=== PATIENT | female | born 1990 | race Caucasian/White ===

== ENCOUNTER → 2023-09-06 | Emergency (ER) | payer BC ==
[~2023-09-06] MED LIST: BUPIVACAINE 0.5% PF 10 ML VIAL ONE; LIDOCAINE 1% MPF 5 ML VIAL ONE; MUPIROCIN 2% OINT 22GM TUBE TOP ONE; SMZ./TMP. 800/160 MG TABLET ONE
--- NOTE | 2023-09-06 08:42 | ER ---
Nurse's Notes [facility] Name: Gricel Tillman Age: 33 yrs Sex: Female : 1990 Arrival Date: 09/06/2023 Time: 07:52 Bed 14 Private MD: Diagnosis: Cutaneous abscess of hand-PARONYCHIA Presentation: 09/06 08:01 Chief complaint: Patient states: R hand 4th digit pain, swelling for 2 days. On keflex, ll1 just wants it lanced. Coronavirus screen: Client denies travel out of the [place] in the last 14 days. At this time, the client does not indicate any symptoms associated with coronavirus-19. Ebola Screen: Patient denies travel to an Ebola-affected area in the 21 days before illness onset. Initial Sepsis Screen: Does the patient meet any 2 criteria? No. Patient's initial sepsis screen is negative. Does the patient have a suspected source of infection? Yes: Skin breakdown/wound. Risk Assessment: Do you want to hurt yourself or someone else? Patient reports no desire to harm self or others. Onset of symptoms was September 05, 2023. 08:01 Method Of Arrival: Ambulatory ll1 08:01 Acuity: ROYA 4 ll1 Triage Assessment: 08:01 General: Appears uncomfortable, Behavior is calm, cooperative, appropriate for age. ll1 Pain: Complains of pain in R hand 4th digit Quality of pain is described as aching, throbbing. Pain: Pain currently is 6 out of 10 on a pain scale. Derm: Abscess located on R hand 4th digit. Musculoskeletal: Circulation, motion, and sensation intact. Capillary refill < 3 seconds, Swelling present in R hand 4th digit nailbed. Historical: - Allergies: 07:55 PERTUSSIS VACCINES; ll1 - PMHx: 08:02 None; ll1 - Immunization history:: Adult Immunizations up to date. - Social history:: Smoking status: Patient denies any tobacco usage or history of. - Family history:: not pertinent. Screenin:49 [facility] ED Fall Risk Assessment (Adult) Score/Fall Risk Level 0 - 2 = Low Risk ll1 Oriented to surroundings, Maintained a safe environment, Educated pt \T\ family on fall prevention, incl call for assistance when getting out of bed, Hourly rounding (assess needs \T\ fall precautionary measures) done. Abuse screen: Denies threats or abuse. Nutritional screening: No deficits noted. Tuberculosis screening: No symptoms or risk factors identified. Assessment: 08:48 Reassessment: No changes from previously documented assessment. Patient and/or family ll1 updated on plan of care and expected duration. Pain level reassessed. Patient is alert, oriented x 3, equal unlabored respirations, skin warm/dry/pink. Vital Signs: 08:01 Pain 8/10; ll1 08:06 BP 125 / 94; Pulse 82; Resp 18; Temp 97.9; Pulse Ox 99% ; ds4 08:01 Pain Scale: Adult ll1 ED Course: 07:53 Patient arrived in ED. rg4 07:55 Ryan Farmer MD is Attending Physician. kosta 07:55 Arm band placed on Patient placed in an exam room, on a stretcher. ll1 08:02 Triage completed. ll1 08:04 Elizabeth Patrick RN is Primary Nurse. ll1 08:40 Jabier Holt MD is Referral Physician. kosta 08:48 Patient did not have IV access during this emergency room visit. Wound care: to s/p I\T\D ll1 located on R hand 4th digit was dressed with Neosporin, 4X4s, secured with tape. 08:49 Patient has correct armband on for positive identification. Bed in low position. ll1 Provided Education on: n/a. 08:49 No provider procedures requiring assistance completed. 1 Administered Medications: 08:09 Drug: Trimethoprim-Sulfamethoxazole PO (160 mg-800 mg (DS) 1 tablet PO once Route: PO; 1 08:46 Follow up: Response: No adverse reaction 1 08:25 Drug: Bupivacaine Infiltration (0.5 %) 3 ml 10 ml Infiltration once Volume: 10 ml; ll1 Route: Infiltration; 08:51 Follow up: Response: No adverse reaction 1 08:25 Drug: Lidocaine Infiltration (1 %) 3 ml 5 ml Infiltration once; to bedside Volume: 5 ll1 ml; Route: Infiltration; 08:50 Follow up: Response: No adverse reaction 1 08:45 Drug: Mupirocin Topical Ointment 2 % 1 application Topical once Route: Topical; Site: ll1 affected area; Medication: 08:50 VIS not applicable for this client. 1 Outcome: 08:41 Discharge ordered by MD. brambila 09:30 Discharged to home ambulatory, [email or web address] 09:30 Condition: stable 09:30 Discharge instructions given to patient, Instructed on discharge instructions, follow up and referral plans. Demonstrated understanding of instructions, follow-up care, medications, Prescriptions given X 3, :30 Patient left the ED. mb9 Signatures: Ryan Farmer MD MD cha Swanson, Donovan ds4 Erin Escobedo4 Elizabeth Patrick RN RN ll1 Annie Li RN RN mb9
--- NOTE | 2023-09-06 08:42 | EDPHYS ---
Physician Documentation [facility] Name: Gricel Tillman Age: 33 yrs Sex: Female : 1990 Arrival Date: 09/06/2023 Time: 07:52 Bed 14 Private MD: ED Physician Ryan Farmer HPI: 09/06 08:33 This 33 yrs old Female presents to ER via Ambulatory with complaints of kosta Finger Infection. 08:33 The patient or guardian reports decreased range of motion, pain. The complaints affect kosta the right side which is dominant. Context: resulted from BITE. Onset: The symptoms/episode began/occurred 3 day(s) ago. Modifying factors: The symptoms are alleviated by nothing, the symptoms are aggravated by movement, dependent position. Associated signs and symptoms: The patient has no apparent associated signs or symptoms. Severity of symptoms: At their worst the symptoms were moderate, severe, in the emergency department the symptoms are unchanged. The patient has not experienced similar symptoms in the past. Historical: - Allergies: 07:55 PERTUSSIS VACCINES; ll1 - PMHx: 08:02 None; ll1 - Immunization history:: Adult Immunizations up to date. - Social history:: Smoking status: Patient denies any tobacco usage or history of. - Family history:: not pertinent. ROS: 08:33 Constitutional: Negative for fever, chills, and weight loss, Eyes: Negative for injury, kosta pain, redness, and discharge, ENT: Negative for injury, pain, and discharge, Neck: Negative for injury, pain, and swelling, Cardiovascular: Negative for chest pain, palpitations, and edema, Respiratory: Negative for shortness of breath, cough, wheezing, and pleuritic chest pain, Abdomen/GI: Negative for abdominal pain, nausea, vomiting, diarrhea, and constipation, Back: Negative for injury and pain, : Negative for injury, bleeding, discharge, and swelling, Skin: Negative for injury, rash, and discoloration, Neuro: Negative for headache, weakness, numbness, tingling, and seizure, Psych: Negative for depression, anxiety, suicide ideation, homicidal ideation, and hallucinations, Allergy/Immunology: Negative for hives, rash, and allergies, Endocrine: Negative for neck swelling, polydipsia, polyuria, polyphagia, and marked weight changes, Hematologic/Lymphatic: Negative for swollen nodes, abnormal bleeding, and unusual bruising, 08:33 MS/extremity: Positive for decreased range of motion, pain, swelling, tenderness, of the palmar aspect of distal phalanx of right middle finger and right middle fingernail, Exam: 08:33 Constitutional: This is a well developed, well nourished patient who is awake, alert, kosta and in no acute distress. Head/Face: Normocephalic, atraumatic. Eyes: Pupils equal round and reactive to light, extra-ocular motions intact. Lids and lashes normal. Conjunctiva and sclera are non-icteric and not injected. Cornea within normal limits. Periorbital areas with no swelling, redness, or edema. ENT: Nares patent. No nasal discharge, no septal abnormalities noted. Tympanic membranes are normal and external auditory canals are clear. Oropharynx with no redness, swelling, or masses, exudates, or evidence of obstruction, uvula midline. Mucous membranes moist. Neck: Trachea midline, no thyromegaly or masses palpated, and no cervical lymphadenopathy. Supple, full range of motion without nuchal rigidity, or vertebral point tenderness. No Meningismus. Chest/axilla: Normal chest wall appearance and motion. Nontender with no deformity. No lesions are appreciated. Cardiovascular: Regular rate and rhythm with a normal S1 and S2. No gallops, murmurs, or rubs. Normal PMI, no JVD. No pulse deficits. Respiratory: Lungs have equal breath sounds bilaterally, clear to auscultation and percussion. No rales, rhonchi or wheezes noted. No increased work of breathing, no retractions or nasal flaring. Abdomen/GI: Soft, non-tender, with normal bowel sounds. No distension or tympany. No guarding or rebound. No evidence of tenderness throughout. Back: No spinal tenderness. No costovertebral tenderness. Full range of motion. Female : Normal external genitalia. Skin: Warm, dry with normal turgor. Normal color with no rashes, no lesions, and no evidence of cellulitis. Neuro: Awake and alert, GCS 15, oriented to person, place, time, and situation. Cranial nerves II-XII grossly intact. Motor strength 5/5 in all extremities. Sensory grossly intact. Cerebellar exam normal. Normal gait. Psych: Awake, alert, with orientation to person, place and time. Behavior, mood, and affect are within normal limits. 08:33 Musculoskeletal/extremity: ROM: intact in all extremities, full active range of motion, full passive range of motion, Circulation is intact in all extremities. Sensation intact. Compartment Syndrome exam of affected extremity: is normal. Weight bearing: able to fully bear weight, without difficulty, Vital Signs: 08:01 Pain 8/10; ll1 08:06 BP 125 / 94; Pulse 82; Resp 18; Temp 97.9; Pulse Ox 99% ; ds4 08:01 Pain Scale: Adult ll1 Procedures: 08:33 I \T\ D: Incision and drainage was performed for an abscess of the right Prepped with [facility] Betadine, Anesthetized with 3 ml's 1% Lidocaine. Incised with #11 blade. Splinting: Splint applied to palmar aspect of distal phalanx of right middle finger and right middle fingernail. MDM: 07:55 Patient medically screened. [facility] 08:33 Differential diagnosis: contusion, tendonitis. Data reviewed: vital signs, nurses [facility] notes. Consideration of Admission/Observation Escalation of care including admission/observation considered. I considered the following discharge prescriptions or medication management in the emergency department Medications were administered in the Emergency Department. See MAR. Test considered but Not performed: Labs: NO LABS. Historians other than the Patient: PATIENT WELL INFORMED. Care significantly affected by the following chronic conditions: NONE. 09/06 08:01 Order name: Dressing - Wound; Complete Time: 08:06 [facility] 09/06 08:01 Order name: Gloves, Sterile; Complete Time: 08:06 [facility] 09/06 08:01 Order name: Setup Suture Tray; Complete Time: 08:05 [facility] Administered Medications: 08:09 Drug: Trimethoprim-Sulfamethoxazole PO (160 mg-800 mg (DS) 1 tablet PO once Route: PO; ll1 08:46 Follow up: Response: No adverse reaction ll1 08:25 Drug: Bupivacaine Infiltration (0.5 %) 3 ml 10 ml Infiltration once Volume: 10 ml; ll1 Route: Infiltration; 08:51 Follow up: Response: No adverse reaction 1 08:25 Drug: Lidocaine Infiltration (1 %) 3 ml 5 ml Infiltration once; to bedside Volume: 5 ll1 ml; Route: Infiltration; 08:50 Follow up: Response: No adverse reaction 1 08:45 Drug: Mupirocin Topical Ointment 2 % 1 application Topical once Route: Topical; Site: ll1 affected area; Disposition Summary: 09/06/23 08:41 Discharge Ordered Notes: Location: Home [facility] Problem: new kosta Symptoms: have improved kosta Condition: Stable kosta Diagnosis - Cutaneous abscess of hand - PARONYCHIA kosta Followup: kosta - With: Private Physician - When: 2 - 3 days - Reason: Recheck today's complaints, Continuance of care, Re-evaluation by your physician Followup: kosta - With: Jabier Holt MD - When: 2 - 3 days - Reason: Recheck today's complaints, Re-evaluation by your physician Discharge Instructions: - Discharge Summary Sheet kosta - Paronychia kosta - Paronychia, [id number] [facility] Forms: - Medication Reconciliation Form kosta - Thank You Letter kosta - Antibiotic Education kosta - Prescription Opioid Use kosta - Patient Portal Instructions kosta - Leadership Thank You Letter kosta - Work release form mb9 Prescriptions: - Centany 2 % Topical ointment - apply 1 application TOPICAL route 3 times per day; 15 gram; Refills: 0, Product [facility] Selection Permitted - acetaminophen-codeine 300-30 mg Oral tablet - take 2 tablet ORAL route every 6 hours as needed for pain; 20 tablet; Refills: kosta 0, Product Selection Permitted - Bactrim DS 800-160 mg Oral Tablet - take 1 tablet ORAL route every 12 hours for 10 days; 20 tablet; Refills: 0, kosta Product Selection Permitted Signatures: Ryan Farmer MD MD cha Lewis, Lynsay RN RN ll1
[2023-09-06 10:37] VITALS: BP 125/94; TEMP 97.9; O2SAT 99
== END ==
LOC: ER 07:52
PROC: 0H9FXZZ Drainage of Right Hand Skin, External Approach (ICD-10-PCS; principal; 2023-09-06)
DX: L03.011 Cellulitis of right finger (principal); Z88.7 Allergy status to serum and vaccine
CPT/HCPCS: 10060; J2001

== ENCOUNTER → 2023-10-01 | Emergency (ER) | payer BC ==
[~2023-10-01] MED LIST changes: -BUPIVACAINE 0.5% PF 10 ML VIAL ONE; +FAMOTIDINE 20 MG/2 ML VIAL IV ONE; +KETOROLAC 30 MG/ML INJ ONE; -LIDOCAINE 1% MPF 5 ML VIAL ONE; +MORPHINE 4 MG/ML SYR ONE; -MUPIROCIN 2% OINT 22GM TUBE TOP ONE; +NA CHLORIDE 0.9% 1,000 ML ONE; +ONDANSETRON 4 MG/2 ML VIAL ONE; -SMZ./TMP. 800/160 MG TABLET ONE
--- OUTSIDE RECORDS SUMMARY | 2023-10-01 23:25 | XMS REPORT | Continuity of Care Document ---
Author Name Unknown Address [address] [place] [address] [facility] thconnect Address [address] [place] [address] Care Team Providers Care Schedule Clerk Name Role Phone DEBBI CERVANTES Primary Care Physician UnavailJacki Ye PA-C Attending Clinician [phone] Unknown, Attending Attending Clinician UnavailJACKI Ye Attending Clinician Unavailable UNKNOWN, ATTENDING Attending Clinician Unavailab octavia Doctor Unassigned, [place] Attending Clinician U navailable Debbi Cha Attending Clinician + [phone] Ramon Mckeon MD Attending Clinician [phone] Estefani Laureano Attending Clinician [phone] LUCY MCCLOUD Attending Clinician UnavailDEBBI Castano Attending Clinician Unavailable Lab, [facility] I Attending Clinician Ewa Conner MD, Jason Keating Attending Clinician [phone] Lana Walls Attending Clinician [phone] JASON ZHAO Attending Clinician Mike ble Pob, [facility] Lab Main Attending Clinician Unavailabl e Payers Payer Name Policy Type Policy Number Effective Date Expirati on Date Source Problems Condition Name Condition Details Condition Category Status Onset Date Resolution Date Last Treatment Date Treating Clinician Comments Source Elevated LFTs Elevated LFTs Disease Active 01-24 00:00: 00 [facility] Positive JIM (antinucle ar antibody) Positive JIM (antinucle ar antibody) Disease Active 01-24 00:00: 00 [facility] Elevated LFTs Elevated LFTs Disease Active 01-24 00:00: 00 [facility] Anxiety Anxiety Disease Active 01-22 00:00: 00 [facility] Hypothyroi dism due to Nish' s thyroiditi s Hypothyroi dism due to Nish' s thyroiditi s Disease Active 01-22 00:00: 00 [facility] Allergies, Adverse Reactions, Alerts Allergy Name Allergy Type Status Severity Reaction(s) Onset Date Inactive Date Treating Clinician Comments Source No Known Allergie s Propensi ty to adverse reaction s Active 08-10 00:00: 00 [facility] NO KNOWN ALLERGIE S Drug Class Active 08-10 00:00: 00 [facility] Social History Social Habit Start Date Stop Date Quantity Comments Source History of tobacco use Current smoker [facility] Tobacco use and exposure 2023-07-18 00:00:00 2023-07-18 00:00:00 Smokeless tobacco non-user [facility] Alcohol intake 2023-07-18 00:00:00 2023-07-18 00:00:00 0 /d [facility] Exposure to SARS-CoV-2 (event) 2020-09-18 00:00:00 2020-10-18 08:11:00 Not sure [facility] History of Social function 2020-06-17 00:00:00 2020-06-17 00:00:00 [facility] Sex Assigned At 1990 00:00:00 1990 00:00:00 [facility] Smoking Status Start Date Stop Date Source Ex-smoker 2023-07-18 00:00:00 2023-07-18 00:00:00 [facility] Medications Ordered Medication Name Filled Medication Name Start Date Stop Date Current Medication? Ordering Clinician Indication Dosage Frequency Signature (SIG) Comments Components Source ibuprofen 800 mg tablet 09-05 00:00: 00 Yes [id number] 800mg Take 1 tablet by mouth in the morning and 1 tablet at noon and 1 tablet in the evening. Take with meals. [facility] cephALEXin (KEFLEX) 500 mg capsule 09-05 00:00: 00 09-13 05:59 :00 Yes [id number] 500mg Take 1 capsule by mouth 4 (four) times daily for 7 days. [facility] fluconazole (DIFLUCAN) 150 mg tablet 09-05 00:00: 00 09-06 05:59 :00 Yes [id number] 150mg Take 1 tablet by mouth once now for 1 dose. [facility] bromphenira mine-pseudo ephedrine-D M (BROMFED DM) 2-30-10 mg/5 mL syrup 2022-08 00:00: 00 Yes [id number] 5mL Take 5 mL by mouth 3 (three) times daily as needed for Cold symptoms or Cough. [facility] fluticasone propionate 50 mcg/actuati on nasal spray 2022-08 00:00: 00 Yes [id number] 2{spray } Use 2 Sprays in each nostril in the morning. [facility] cetirizine 10 mg tablet 2022-08 00:00: 00 Yes [id number] 10mg Take 1 tablet by mouth in the morning. [facility] bromphenira mine-pseudo ephedrine-D M (BROMFED DM) 2-30-10 mg/5 mL syrup 2022-08 00:00: 00 Yes [id number] 5mL Take 5 mL by mouth 3 (three) times daily as needed for Cold symptoms or Cough. [facility] fluticasone propionate 50 mcg/actuati on nasal spray 2022-08 00:00: 00 Yes [id number] 2{spray } Use 2 Sprays in each nostril in the morning. [facility] cetirizine 10 mg tablet 2022-08 00:00: 00 Yes [id number] 10mg Take 1 tablet by mouth in the morning. [facility] bromphenira mine-pseudo ephedrine-D M (BROMFED DM) 2-30-10 mg/5 mL syrup 2022-08 00:00: 00 Yes [id number] 5mL Take 5 mL by mouth 3 (three) times daily as needed for Cold symptoms or Cough. [facility] fluticasone propionate 50 mcg/actuati on nasal spray 2022-08 00:00: 00 Yes [id number] 2{spray } Use 2 Sprays in each nostril in the morning. [facility] cetirizine 10 mg tablet 2022-08 00:00: 00 Yes [id number] 10mg Take 1 tablet by mouth in the morning. [facility] bromphenira mine-pseudo ephedrine-D M (BROMFED DM) 2-30-10 mg/5 mL syrup 2022-08 00:00: 00 Yes [id number] 5mL Take 5 mL by mouth 3 (three) times daily as needed for Cold symptoms or Cough. [facility] fluticasone propionate 50 mcg/actuati on nasal spray 2022-08 00:00: 00 Yes [id number] 2{spray } Use 2 Sprays in each nostril in the morning. [facility] cetirizine 10 mg tablet 2022-08 00:00: 00 Yes [id number] 10mg Take 1 tablet by mouth in the morning. [facility] SERTraline 100 mg tablet 2020-08 00:00: 00 Yes [id number] 100mg Take 1 tablet by mouth daily. MUST BE SEEN FOR FURTHER REFILLS [facility] SERTraline 100 mg tablet 2020-08 00:00: 00 Yes [id number] 100mg Take 1 tablet by mouth daily. MUST BE SEEN FOR FURTHER REFILLS [facility] SERTraline 100 mg tablet 2020-08 00:00: 00 Yes [id number] 100mg Take 1 tablet by mouth daily. MUST BE SEEN FOR FURTHER REFILLS [facility] SERTraline 100 mg tablet 2020-08 00:00: 00 Yes [id number] 100mg Take 1 tablet by mouth daily. MUST BE SEEN FOR FURTHER REFILLS [facility] SERTraline 100 mg tablet 2020-08 00:00: 00 Yes [id number] 100mg Take 1 tablet by mouth daily. MUST BE SEEN FOR FURTHER REFILLS [facility] SERTraline 100 mg tablet 2020-08 00:00: 00 Yes [id number] 100mg Take 1 tablet by mouth daily. MUST BE SEEN FOR FURTHER REFILLS [facility] SERTraline 100 mg tablet 2020-08 00:00: 00 Yes [id number] 100mg Take 1 tablet by mouth daily. MUST BE SEEN FOR FURTHER REFILLS [facility] SERTraline 100 mg tablet 2020-08 00:00: 00 Yes [id number] 100mg Take 1 tablet by mouth daily. MUST BE SEEN FOR FURTHER REFILLS [facility] SERTraline 100 mg tablet 2020-08 00:00: 00 Yes [id number] 100mg Take 1 tablet by mouth daily. MUST BE SEEN FOR FURTHER REFILLS [facility] SERTRALINE 100 mg tablet 04-21 00:00: 00 Yes [id number] 100mg TAKE 1 TABLET BY MOUTH DAILY. MUST BE SEEN FOR FURTHER REFILLS [facility] SERTRALINE 100 mg tablet 04-21 00:00: 00 Yes [id number] 100mg TAKE 1 TABLET BY MOUTH DAILY. MUST BE SEEN FOR FURTHER REFILLS [facility] SERTRALINE 100 mg tablet 04-21 00:00: 00 05-27 00:00 :00 No [id number] 100mg TAKE 1 TABLET BY MOUTH DAILY. MUST BE SEEN FOR FURTHER REFILLS [facility] levothyroxi ne 75 mcg tablet 03-28 00:00: 00 04-28 04:59 :00 No [id number] 75ug Take 1 tablet by mouth every morning for 30 days. [facility] levothyroxi ne 75 mcg tablet 03-28 00:00: 00 04-28 04:59 :00 No [id number] 75ug Take 1 tablet by mouth every morning for 30 days. [facility] SERTRALINE 100 mg tablet 03-04 00:00: 00 Yes [id number] 100mg TAKE 1 TABLET BY MOUTH DAILY. MUST BE SEEN FOR FURTHER REFILLS [facility] SERTRALINE 100 mg tablet 03-04 00:00: 00 Yes [id number] 100mg TAKE 1 TABLET BY MOUTH DAILY. MUST BE SEEN FOR FURTHER REFILLS [facility] SERTRALINE 100 mg tablet 03-04 00:00: 00 Yes [id number] 100mg TAKE 1 TABLET BY MOUTH DAILY. MUST BE SEEN FOR FURTHER REFILLS [facility] SERTRALINE 100 mg tablet 03-04 00:00: 00 Yes [id number] 100mg TAKE 1 TABLET BY MOUTH DAILY. MUST BE SEEN FOR FURTHER REFILLS [facility] SERTRALINE 100 mg tablet 03-04 00:00: 00 04-21 00:00 :00 No [id number] 100mg TAKE 1 TABLET BY MOUTH DAILY. MUST BE SEEN FOR FURTHER REFILLS [facility] SERTRALINE 100 mg tablet 03-04 00:00: 00 04-21 00:00 :00 No [id number] 100mg TAKE 1 TABLET BY MOUTH DAILY. MUST BE SEEN FOR FURTHER REFILLS [facility] SERTraline 100 mg tablet 12-29 00:00: 00 Yes [id number] 100mg Take 1 tablet by mouth daily. MUST BE SEEN FOR FURTHER REFILLS [facility] SERTraline 100 mg tablet 12-29 00:00: 00 03-04 00:00 :00 No [id number] 100mg Take 1 tablet by mouth daily. MUST BE SEEN FOR FURTHER REFILLS [facility] levothyroxi ne 75 mcg tablet 11-25 00:00: 00 Yes [id number] 75ug Take 1 tablet by mouth every morning. [facility] levothyroxi ne 75 mcg tablet 11-25 00:00: 00 Yes [id number] 75ug Take 1 tablet by mouth every morning. [facility] levothyroxi ne 75 mcg tablet 11-25 00:00: 00 Yes [id number] 75ug Take 1 tablet by mouth every morning. [facility] levothyroxi ne 75 mcg tablet 11-25 00:00: 00 Yes [id number] 75ug Take 1 tablet by mouth every morning. [facility] levothyroxi ne 75 mcg tablet 11-25 00:00: 00 Yes [id number] 75ug Take 1 tablet by mouth every morning. [facility] SERTRALINE 100 mg tablet 2 00:00: 00 Yes [id number] TAKE 1 TABLET BY MOUTH EVERY DAY [facility] SERTRALINE 100 mg tablet 2 00:00: 00 Yes [id number] TAKE 1 TABLET BY MOUTH EVERY DAY [facility] SERTRALINE 100 mg tablet 2 00:00: 00 Yes [id number] TAKE 1 TABLET BY MOUTH EVERY DAY [facility] SERTRALINE 100 mg tablet 2 00:00: 00 Yes [id number] TAKE 1 TABLET BY MOUTH EVERY DAY [facility] SERTRALINE 100 mg tablet 2 00:00: 00 Yes [id number] TAKE 1 TABLET BY MOUTH EVERY DAY [facility] SERTRALINE 100 mg tablet 2- 00:00: 00 Yes [id number] TAKE 1 TABLET BY MOUTH EVERY DAY [facility] SERTRALINE 100 mg tablet 2- 00:00: 00 Yes [id number] TAKE 1 TABLET BY MOUTH EVERY DAY [facility] SERTRALINE 100 mg tablet 2- 00:00: 00 Yes [id number] TAKE 1 TABLET BY MOUTH EVERY DAY [facility] SERTRALINE 100 mg tablet 2- 00:00: 00 Yes [id number] TAKE 1 TABLET BY MOUTH EVERY DAY [facility] SERTRALINE 100 mg tablet 09-06 00:00: 00 12-29 00:00 :00 No [id number] TAKE 1 TABLET BY MOUTH EVERY DAY [facility] levothyroxi ne 75 mcg tablet 08-25 00:00: 00 Yes [id number] 75ug Take 1 tablet by mouth every morning. [facility] levothyroxi ne 75 mcg tablet 08-25 00:00: 00 Yes [id number] 75ug Take 1 tablet by mouth every morning. [facility] levothyroxi ne 75 mcg tablet 08-25 00:00: 00 Yes [id number] 75ug Take 1 tablet by mouth every morning. [facility] levothyroxi ne 75 mcg tablet 08-25 00:00: 00 Yes [id number] 75ug Take 1 tablet by mouth every morning. [facility] levothyroxi ne 75 mcg tablet 08-25 00:00: 00 Yes [id number] 75ug Take 1 tablet by mouth every morning. [facility] levothyroxi ne 75 mcg tablet 08-25 00:00: 00 Yes [id number] 75ug Take 1 tablet by mouth every morning. [facility] levothyroxi ne 75 mcg tablet 08-25 00:00: 00 Yes [id number] 75ug Take 1 tablet by mouth every morning. [facility] levothyroxi ne 75 mcg tablet 08-25 00:00: 00 Yes [id number] 75ug Take 1 tablet by mouth every morning. [facility] levothyroxi ne 75 mcg tablet 08-25 00:00: 00 11-25 00:00 :00 No [id number] 75ug Take 1 tablet by mouth every morning. [facility] SERTraline 100 mg tablet 2019-08 00:00: 00 Yes [id number] 100mg Take 1 tablet by mouth daily. [facility] SERTraline 100 mg tablet 2019-08 00:00: 00 Yes [id number] 100mg Take 1 tablet by mouth daily. [facility] SERTraline 100 mg tablet 2019-08 00:00: 00 Yes [id number] 100mg Take 1 tablet by mouth daily. [facility] SERTraline 100 mg tablet 2019-08 00:00: 00 Yes [id number] 100mg Take 1 tablet by mouth daily. [facility] SERTraline 100 mg tablet 2019-08 00:00: 00 09-06 00:00 :00 No [id number] 100mg Take 1 tablet by mouth daily. [facility] SERTraline 100 mg tablet 2019-08 00:00: 00 08-02 05:59 :00 No [id number] 100mg Take 1 tablet by mouth daily for 45 days. [facility] SERTraline 100 mg tablet 2019-08 00:00: 00 08-02 05:59 :00 No [id number] 100mg Take 1 tablet by mouth daily for 45 days. [facility] SERTraline 100 mg tablet 2019-08 00:00: 00 08-02 05:59 :00 No [id number] 100mg Take 1 tablet by mouth daily for 45 days. [facility] SERTraline 100 mg tablet 2019-08 00:00: 00 08-02 05:59 :00 No [id number] 100mg Take 1 tablet by mouth daily for 45 days. [facility] SERTraline 100 mg tablet 2019-08 00:00: 00 08-02 05:59 :00 No [id number] 100mg Take 1 tablet by mouth daily for 45 days. [facility] SERTraline 100 mg tablet 2019-08 00:00: 00 07-23 00:00 :00 No [id number] 100mg Take 1 tablet by mouth daily for 45 days. [facility] LEVOTHYROXI NE 75 mcg tablet 2019-08 00:00: 00 Yes [id number] TAKE 1 TABLET BY MOUTH EVERY DAY IN THE MORNING [facility] LEVOTHYROXI NE 75 mcg tablet 2019-08 00:00: 00 Yes [id number] TAKE 1 TABLET BY MOUTH EVERY DAY IN THE MORNING [facility] LEVOTHYROXI NE 75 mcg tablet 2019-08 00:00: 00 Yes [id number] TAKE 1 TABLET BY MOUTH EVERY DAY IN THE MORNING [facility] LEVOTHYROXI NE 75 mcg tablet 2019-08 00:00: 00 Yes [id number] TAKE 1 TABLET BY MOUTH EVERY DAY IN THE MORNING [facility] LEVOTHYROXI NE 75 mcg tablet 2019-08 00:00: 00 Yes [id number] TAKE 1 TABLET BY MOUTH EVERY DAY IN THE MORNING [facility] LEVOTHYROXI NE 75 mcg tablet 2019-08 00:00: 00 Yes [id number] TAKE 1 TABLET BY MOUTH EVERY DAY IN THE MORNING [facility] LEVOTHYROXI NE 75 mcg tablet 2019-08 00:00: 00 Yes [id number] TAKE 1 TABLET BY MOUTH EVERY DAY IN THE MORNING [facility] LEVOTHYROXI NE 75 mcg tablet 2019-08 00:00: 00 Yes [id number] TAKE 1 TABLET BY MOUTH EVERY DAY IN THE MORNING [facility] LEVOTHYROXI NE 75 mcg tablet 2019-08 00:00: 00 Yes [id number] TAKE 1 TABLET BY MOUTH EVERY DAY IN THE MORNING [facility] LEVOTHYROXI NE 75 mcg tablet 2019-08 00:00: 00 08-24 00:00 :00 No [id number] TAKE 1 TABLET BY MOUTH EVERY DAY IN THE MORNING [facility] LEVOTHYROXI NE 75 mcg tablet 02-18 00:00: 00 Yes [id number] TAKE 1 TABLET BY MOUTH EVERY DAY IN THE MORNING [facility] LEVOTHYROXI NE 75 mcg tablet 02-18 00:00: 00 06-09 00:00 :00 No [id number] TAKE 1 TABLET BY MOUTH EVERY DAY IN THE MORNING [facility] polymyxin B sulf-trimet hoprim (POLYTRIM) 10,000 unit- 1 mg/mL ophthalmic drops 02-06 00:00: 02-12 04:59 :00 No [id number] 9102 1[drp] Place 1 Drop in left eye every 4 (four) hours for 5 days. [facility] levothyroxi ne 75 mcg tablet 11-24 00:00: 00 Yes [id number] 75ug Take 1 tablet by mouth every morning. [facility] SERTraline 50 mg tablet 11-24 00:00: 00 Yes [id number] TAKE 1 TAB PO DAILY [facility] levothyroxi ne 75 mcg tablet 11-24 00:00: 00 Yes [id number] 75ug Take 1 tablet by mouth every morning. [facility] SERTraline 50 mg tablet 11-24 00:00: 00 Yes [id number] TAKE 1 TAB PO DAILY [facility] SERTraline 50 mg tablet 11-24 00:00: 00 Yes [id number] TAKE 1 TAB PO DAILY [facility] SERTraline 50 mg tablet 11-24 00:00: 00 Yes [id number] TAKE 1 TAB PO DAILY [facility] SERTraline 50 mg tablet 11-24 00:00: 00 06-17 00:00 :00 No [id number] TAKE 1 TAB PO DAILY [facility] SERTraline 50 mg tablet 11-24 00:00: 00 06-17 00:00 :00 No [id number] TAKE 1 TAB PO DAILY [facility] levothyroxi ne 75 mcg tablet 11-24 00:00: 00 02-18 00:00 :00 No [id number] 75ug Take 1 tablet by mouth every morning. [facility] SERTraline 50 mg tablet 10-28 00:00: 00 Yes [id number] TAKE 1 TAB PO DAILY [facility] SERTraline 50 mg tablet 10-28 00:00: 00 Yes [id number] TAKE 1 TAB PO DAILY [facility] SERTraline 50 mg tablet 10-28 00:00: 00 11-24 00:00 :00 No [id number] TAKE 1 TAB PO DAILY [facility] levothyroxi ne 50 mcg tablet 0 2-13 00:00: 00 Yes [id number] 50ug Take 1 tablet by mouth every morning. [facility] levothyroxi ne 50 mcg tablet 0 2-13 00:00: 00 Yes [id number] 50ug Take 1 tablet by mouth every morning. [facility] levothyroxi ne 50 mcg tablet 0 2-13 00:00: 00 Yes [id number] 50ug Take 1 tablet by mouth every morning. [facility] levothyroxi ne 50 mcg tablet 0 2-13 00:00: 00 11-24 00:00 :00 No [id number] 50ug Take 1 tablet by mouth every morning. [facility] amoxicillin -clavulanat e (AUGMENTIN) 875-125 mg per tablet 2- 00:00: 00 09-27 05:59 :00 No [id number] 1{tbl} Take 1 tablet by mouth 2 (two) times daily for 10 days. [facility] bromphenira mine-pseudo ephedrine-D M (BROMFED DM) 2-30-10 mg/5 mL syrup 2 00:00: 00 09-27 05:59 :00 No [id number] 5mL Take 5 mL by mouth 4 (four) times daily as needed for Cough for up to 10 days. [facility] amoxicillin -clavulanat e (AUGMENTIN) 875-125 mg per tablet 2- 00:00: 00 09-27 05:59 :00 No [id number] 1{tbl} Take 1 tablet by mouth 2 (two) times daily for 10 days. [facility] bromphenira mine-pseudo ephedrine-D M (BROMFED DM) 2-30-10 mg/5 mL syrup 2-11 00:00: 00 09-27 05:59 :00 No [id number] 5mL Take 5 mL by mouth 4 (four) times daily as needed for Cough for up to 10 days. [facility] amoxicillin -clavulanat e (AUGMENTIN) 875-125 mg per tablet 2-11 00:00: 09-27 05:59 :00 No [id number] 1{tbl} Take 1 tablet by mouth 2 (two) times daily for 10 days. [facility] bromphenira mine-pseudo ephedrine-D M (BROMFED DM) 2-30-10 mg/5 mL syrup 2019- 2-11 00:00: 09-27 05:59 :00 No [id number] 5mL Take 5 mL by mouth 4 (four) times daily as needed for Cough for up to 10 days. [facility] amoxicillin -clavulanat e (AUGMENTIN) 875-125 mg per tablet 2-11 00:00: 09-27 05:59 :00 No [id number] 1{tbl} Take 1 tablet by mouth 2 (two) times daily for 10 days. [facility] bromphenira mine-pseudo ephedrine-D M (BROMFED DM) 2-30-10 mg/5 mL syrup 2-11 00:00: 09-27 05:59 :00 No [id number] 5mL Take 5 mL by mouth 4 (four) times daily as needed for Cough for up to 10 days. [facility] amoxicillin -clavulanat e (AUGMENTIN) 875-125 mg per tablet 2-11 00:00: 09-27 05:59 :00 No [id number] 1{tbl} Take 1 tablet by mouth 2 (two) times daily for 10 days. [facility] bromphenira mine-pseudo ephedrine-D M (BROMFED DM) 2-30-10 mg/5 mL syrup 2-11 00:00: 09-27 05:59 :00 No [id number] 5mL Take 5 mL by mouth 4 (four) times daily as needed for Cough for up to 10 days. [facility] amoxicillin -clavulanat e (AUGMENTIN) 875-125 mg per tablet 2-11 00:00: 09-27 05:59 :00 No [id number] 1{tbl} Take 1 tablet by mouth 2 (two) times daily for 10 days. [facility] bromphenira mine-pseudo ephedrine-D M (BROMFED DM) 2-30-10 mg/5 mL syrup 09-16 00:00: 00 09-27 05:59 :00 No [id number] 5mL Take 5 mL by mouth 4 (four) times daily as needed for Cough for up to 10 days. [facility] levothyroxi ne 50 mcg tablet 2018-08 00:00: 00 Yes [id number] 50ug Take 1 tablet by mouth every morning. [facility] SERTraline 50 mg tablet 2018-08 00:00: 00 Yes [id number] Take 1/2 tab PO daily x 1 week, then increase to 1 tab PO daily [facility] mcg tablet 2018-08 00:00: 00 Yes [id number] 50ug Take 1 tablet by mouth every morning. [facility] SERTraline 50 mg tablet 2018-08 00:00: 00 Yes [id number] Take 1/2 tab PO daily x 1 week, then increase to 1 tab PO daily [facility] levothyroxi ne 50 mcg tablet 2018-08 00:00: 00 Yes [id number] 50ug Take 1 tablet by mouth every morning. [facility] SERTraline 50 mg tablet 2018-08 00:00: 00 Yes [id number] Take 1/2 tab PO daily x 1 week, then increase to 1 tab PO daily [facility] SERTraline 50 mg tablet 2018-08 00:00: 00 Yes [id number] Take 1/2 tab PO daily x 1 week, then increase to 1 tab PO daily [facility] SERTraline 50 mg tablet 2018-08 00:00: 00 Yes [id number] Take 1/2 tab PO daily x 1 week, then increase to 1 tab PO daily [facility] SERTraline 50 mg tablet 2018-08 00:00: 00 Yes [id number] Take 1/2 tab PO daily x 1 week, then increase to 1 tab PO daily [facility] SERTraline 50 mg tablet 2018-08 00:00: 00 10-28 00:00 :00 No [id number] Take 1/2 tab PO daily x 1 week, then increase to 1 tab PO daily [facility] levothyroxi ne 50 mcg tablet 2018-08 00:00: 00 09-18 00:00 :00 No [id number] 50ug Take 1 tablet by mouth every morning. [facility] Immunizations Ordered Immunization Name Filled Immunization Name Date Status Comments Source Influenza Virus Vaccine Quad .5 mL IM 6+ MO 2020-06-17 00:00:00 Completed [facility] Influenza Virus Vaccine Quad .5 mL IM 6+ MO 2020-06-17 00:00:00 Completed [facility] Influenza Virus Vaccine Quad .5 mL IM 6+ MO 2020-06-17 00:00:00 Completed [facility] Influenza Virus Vaccine Quad .5 mL IM 6+ MO 2020-06-17 00:00:00 Completed [facility] Influenza Virus Vaccine Quad .5 mL IM 6+ MO 2020-06-17 00:00:00 Completed [facility] Influenza Virus Vaccine Quad .5 mL IM 6+ MO 2020-06-17 00:00:00 Completed [facility] Influenza Virus Vaccine Quad .5 mL IM 6+ MO 2020-06-17 00:00:00 Completed [facility] Influenza Virus Vaccine Quad .5 mL IM 6+ MO 2020-06-17 00:00:00 Completed [facility] Influenza Virus Vaccine Quad .5 mL IM 6+ MO 2020-06-17 00:00:00 Completed [facility] Influenza Virus Vaccine Quad .5 mL IM 6+ MO 2020-06-17 00:00:00 Completed [facility] Influenza Virus Vaccine Quad .5 mL IM 6+ MO 2020-06-17 00:00:00 Completed [facility] Influenza Virus Vaccine Quad .5 mL IM 6+ MO 2020-06-17 00:00:00 Completed [facility] Influenza Virus Vaccine Quad .5 mL IM 6+ MO 2020-06-17 00:00:00 Completed [facility] Influenza Virus Vaccine Quad .5 mL IM 6+ MO 2020-06-17 00:00:00 Completed [facility] Influenza Virus Vaccine Quad .5 mL IM 6+ MO 2020-06-17 00:00:00 Completed [facility] Influenza Virus Vaccine Quad .5 mL IM 6+ MO 2020-06-17 00:00:00 Completed [facility] Influenza Virus Vaccine Quad .5 mL IM 6+ MO 2020-06-17 00:00:00 Completed [facility] Influenza Virus Vaccine Quad .5 mL IM 6+ MO 2020-06-17 00:00:00 Completed [facility] Influenza Virus Vaccine Quad .5 mL IM 6+ MO 2020-06-17 00:00:00 Completed [facility] Influenza Virus Vaccine Quad .5 mL IM 6+ MO 2020-06-17 00:00:00 Completed [facility] Influenza Virus Vaccine Quad .5 mL IM 6+ MO 2020-06-17 00:00:00 Completed [facility] Influenza Virus Vaccine Quad .5 mL IM 6+ MO 2020-06-17 00:00:00 Completed [facility] Influenza Virus Vaccine Quad .5 mL IM 6+ MO 2020-06-17 00:00:00 Completed [facility] Influenza Virus Vaccine Quad .5 mL IM 6+ MO 2020-06-17 00:00:00 Completed [facility] Influenza Virus Vaccine Quad .5 mL IM 6+ MO 2020-06-17 00:00:00 Completed [facility] Influenza Virus Vaccine Quad .5 mL IM 6+ MO 2020-06-17 00:00:00 Completed [facility] Influenza Virus Vaccine Quad .5 mL IM 6+ MO 2020-06-17 00:00:00 Completed [facility] Influenza Virus Vaccine Quad .5 mL IM 6+ MO 2020-06-17 00:00:00 Completed [facility] Influenza Virus Vaccine Quad .5 mL IM 6+ MO (FLUZONE/FLULAVAL/F LUARIX) Unknown Completed [facility] Influenza Virus Vaccine Quad .5 mL IM 6+ MO (FLUZONE/FLULAVAL/F LUARIX) Unknown Completed [facility] Influenza Virus Vaccine Quad .5 mL IM 6+ MO (FLUZONE/FLULAVAL/F LUARIX) Unknown Completed [facility] Influenza Virus Vaccine Quad .5 mL IM 6+ MO (FLUZONE/FLULAVAL/F LUARIX) Unknown Completed [facility] Influenza Virus Vaccine Quad .5 mL IM 6+ MO (FLUZONE/FLULAVAL/F LUARIX) Unknown Completed [facility] Influenza Virus Vaccine Quad .5 mL IM 6+ MO (FLUZONE/FLULAVAL/F LUARIX) Unknown Completed [facility] Vital Signs Vital Name Observation Time Observation Value Comments S jocelynce Systolic blood pressure 2023-09-06 02:07:00 137 mm[Hg] [facility] Diastolic blood pressure 2023-09-06 02:07:00 87 mm[Hg] [facility] Heart rate 2023-09-06 02:07:00 93 /min [facility] Body temperature 2023-09-06 02:07:00 36.72 Ally [facility] Respiratory rate 2023-09-06 02:07:00 14 /min [facility] Body weight 2023-09-06 02:07:00 105.325 kg [facility] BMI 2023-09-06 02:07:00 36.37 kg/m2 [facility] Oxygen saturation in Arterial blood by Pulse oximetry 2023-09-06 02:07:00 98 /min [facility] Systolic blood pressure 2023-07-18 17:26:00 116 mm[Hg] [facility] Diastolic blood pressure 2023-07-18 17:26:00 79 mm[Hg] [facility] Heart rate 2023-07-18 17:26:00 101 /min [facility] Body temperature 2023-07-18 17:26:00 36.83 Ally [facility] Respiratory rate 2023-07-18 17:26:00 16 /min [facility] Body height 2023-07-18 17:26:00 170.2 cm [facility] Body weight 2023-07-18 17:26:00 103.738 kg [facility] BMI 2023-07-18 17:26:00 35.82 kg/m2 [facility] Oxygen saturation in Arterial blood by Pulse oximetry 2023-07-18 17:26:00 99 /min [facility] Systolic blood pressure 2020-09-30 22:08:00 120 mm[Hg] [facility] Diastolic blood pressure 2020-09-30 22:08:00 77 mm[Hg] [facility] Heart rate 2020-09-30 22:08:00 81 /min [facility] Body weight 2020-09-30 22:08:00 103.874 kg [facility] BMI 2020-09-30 22:08:00 35.87 kg/m2 [facility] Systolic blood pressure 2020-06-17 21:33:00 116 mm[Hg] [facility] Diastolic blood pressure 2020-06-17 21:33:00 81 mm[Hg] [facility] Heart rate 2020-06-17 21:33:00 88 /min [facility] Body weight 2020-06-17 21:33:00 99.791 kg [facility] BMI 2020-06-17 21:33:00 34.46 kg/m2 [facility] Systolic blood pressure 2019-09-16 22:42:00 112 mm[Hg] [facility] Diastolic blood pressure 2019-09-16 22:42:00 77 mm[Hg] [facility] Heart rate 2019-09-16 22:42:00 89 /min [facility] Body temperature 2019-09-16 22:42:00 36.94 Ally [facility] Body weight 2019-09-16 22:42:00 99.791 kg [facility] BMI 2019-09-16 22:42:00 34.46 kg/m2 [facility] Oxygen saturation in Arterial blood by Pulse oximetry 2019-09-16 22:42:00 98 /min [facility] Procedures Procedure Date / Time Performed Performing Clinician Source POCT MOLECULAR FLU 2023-07-18 17:39:00 Unknown, Attend ing [facility] POCT MOLECULAR STREP 2023-07-18 17:32:00 Unknown, Atte iglesia [facility] ASSIGNMENT OF BENEFITS 2023-07-18 16:54:53 Docto r Unassigned, [place] [facility] AUTHORIZATION FOR RELEASE OF PHI 2021-03-21 05:01:00 Doctor Unassigned, [place] [facility] INSURANCE CORRESPONDENCE 2020-11-24 05:01:00 Doc nancy Unassigned, [place] [facility] FLU VACC ([phone]), 6+ MONTHS, IMURIEL 2020-06-17 21:49:09 Debbi Cervantes [facility] FREE T4 2019-09-16 23:21:00 Debbi Cervantes [facility] THYROID STIMULATING HORMONE 2019-09-16 23:21:00 Debbi Cervantes [facility] Encounters Start Date/Time End Date/Time Encounter Type Admission Type Attending Clinicians Care Facility Care Department Encounter ID Source 2023-09-05 20:00:00 2023-09-05 20:20:00 Urgent Care Jacki Benjamin, Attending [facility] 1.2.840.114 350.1.13.10 4.2.7.2.686 [id number] [facility] 2023-09-05 20:00:00 2023-09-05 20:00:00 Outpatient R JACKI BENJAMIN [facility] [id number] [facility] 2023-09-01 09:00:00 2023-09-01 09:00:00 Outpatient R DAISY, ATTENDING [facility] [id number] [facility] 2023-08-10 00:00:00 2023-08-10 00:00:00 Refill Sourav Jacki [facility] MAMADOU?[facility] 1.2.840.114 350.1.13.10 4.2.7.2.686 [id number] [facility] 2023-08-09 00:00:00 2023-08-09 00:00:00 Refill Sourav [facility] MAMADOU?[facility] 1.2.840.114 350.1.13.10 4.2.7.2.686 [id number] [facility] 2023-07-18 11:00:00 2023-07-18 11:51:59 Outpatient R SOURAV JACKI [facility] [id number] [facility] 2023-07-18 11:00:00 2023-07-18 11:51:59 Urgent Care Sourav Jacki Unknown, Attending [facility] 1.2.840.114 350.1.13.10 4.2.7.2.686 [id number] [facility] 2023-07-18 00:00:00 2023-07-18 00:00:00 Orders Only Doctor Unassigned, [place] [facility] 1.2.840.114 350.1.13.10 4.2.7.2.686 [id number] [facility] 2023-05-21 00:00:00 2023-05-21 00:00:00 [facility] 1.2.840.114 350.1.13.10 4.2.7.2.686 [id number] [facility] 2021-06-08 00:00:00 2021-06-08 00:00:00 [facility] 1.2.840.114 350.1.13.10 4.2.7.2.686 [id number] [facility] 2021-05-30 00:00:00 2021-05-30 00:00:00 Telephone Rupinder Cervantesthia [facility] Mamadou?[facility] Medical [facility] Building 1.2.840.114 350.1.13.10 4.2.7.2.686 [id number] [facility] 2021-05-26 00:00:00 2021-05-26 00:00:00 [facility] 1..114 350.1.13.10 4.2.7.2.686 [id number] [facility] 2021-04-20 00:00:00 2021-04-20 00:00:00 [facility] 1..114 350.1.13.10 4.2.7.2.686 [id number] [facility] 2021-03-21 00:00:00 2021-03-21 00:00:00 Orders Only Doctor Unassigned, [place] [facility] 1.0.114 350.1.13.10 4.2.7.2.686 [id number] [facility] 2021-03-18 00:00:00 2021-03-18 00:00:00 [facility] ..114 350.1.13.10 4.2.7.2.686 [id number] [facility] 2021-03-04 00:00:00 2021-03-04 00:00:00 Refill Ramon Mckeon [facility] Office Building One ..114 350.1.13.10 4.2.7.2.686 [id number] [facility] 2020-12-29 00:00:00 2020-12-29 00:00:00 Refill Estefani Ram [facility] Office Building One 1.0.114 350.1.13.10 4.2.7.2.686 [id number] [facility] 2020-11-26 14:00:00 2020-11-26 14:00:00 Outpatient LUCY LINDQUIST [facility] [id number] [facility] 2020-11-24 00:00:00 2020-11-24 00:00:00 [facility] 1.840.114 350.1.13.10 4.2.7.2.686 [id number] [facility] 2020-11-24 00:00:00 2020-11-24 00:00:00 Orders Only Doctor Unassigned, [place] [facility] 1.2840.114 350.1.13.10 4.2.7.2.686 [id number] [facility] 2020-10-25 00:00:00 2020-10-25 00:00:00 Telephone Ramon Mckeon [facility] Office Building One 1.840.114 350.1.13.10 4.2.7.2.686 [id number] [id number] [facility] 2020-10-21 00:00:00 2020-10-21 00:00:00 [facility] 1.840.114 350.1.13.10 4.2.7.2.686 [id number] [facility] 2020-10-19 00:00:00 2020-10-19 00:00:00 Telephone Debbi Cervantes [facility] Office Building One 1.840.114 350.1.13.10 4.2.7.2.686 [id number] [facility] 2020-10-18 08:40:00 2020-10-18 08:40:00 Outpatient R DEBBI CERVANTES [facility] [id number] [facility] 2020-10-18 08:12:31 2020-10-18 08:32:31 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, Adc Fam Pob I Debbi Cervantes [facility] Office Building One 1.840.114 350.1.13.10 4.2.7.2.686 [id number] [facility] 2020-09-30 16:01:41 2020-09-30 16:31:41 Office Visit Debbi Cervantes [facility] Office Building One 1.840.114 350.1.13.10 4.2.7.2.686 [id number] [facility] 2020-09-30 16:00:00 2020-09-30 16:00:00 Outpatient R DEBBI CERVANTES [facility] [id number] [facility] 2020-09-04 00:00:00 2020-09-04 00:00:00 Refill Ramon Mckeon [facility] Office Building One 1.0.114 350.1.13.10 4.2.7.2.686 [id number] [facility] 2020-08-24 00:00:00 2020-08-24 00:00:00 Refill Estefani Ram [facility] Office Building One 1.840.114 350.1.13.10 4.2.7.2.686 [id number] [facility] 2020-08-10 00:00:00 2020-08-10 00:00:00 Refill Jason Zhao [facility] Building 1.840.114 350.1.13.10 4.2.7.2.686 [id number] [facility] 2020-07-26 00:00:00 2020-07-26 00:00:00 Refill Estefani Ram [facility] Office Building One 1.0.114 350.1.13.10 4.2.7.2.686 [id number] [facility] 2020-07-22 00:00:00 2020-07-22 00:00:00 Refill Estefani Ram [facility] Office Building One 1.2840.114 350.1.13.10 4.2.7.2.686 [id number] [facility] 2020-06-23 00:00:00 2020-06-23 00:00:00 Telephone Estefani Ram [facility] Office Building One 1.2840.114 350.1.13.10 4.2.7.2.686 [id number] [facility] 2020-06-22 00:00:00 2020-06-22 00:00:00 Telephone Debbi Cervantes [facility] Building 1.2840.114 350.1.13.10 4.2.7.2.686 [id number] [facility] 2020-06-17 16:06:40 2020-06-17 16:26:40 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, Adc [facility] Pob [facility] One 1.2840.114 350.1.13.10 4.2.7.2.686 [id number] [facility] 2020-06-17 14:57:38 2020-06-17 16:20:49 Office Visit Debbi Cervantes [facility] Office Building One 1.2840.114 350.1.13.10 4.2.7.2.686 [id number] [facility] 2020-06-17 15:00:00 2020-06-17 15:00:00 Outpatient R JACKIEDEBBI OLIVER [facility] [id number] [facility] 2020-06-09 00:00:00 2020-06-09 00:00:00 Refill Jason Zhao [facility] Building 1..114 350.1.13.10 4.2.7.2.686 [id number] [facility] 2020-02-19 00:00:00 2020-02-19 00:00:00 Refill Jason Zhao [facility] Building 1..114 350.1.13.10 4.2.7.2.686 [id number] [facility] 2020-02-07 13:45:00 2020-02-07 13:45:00 Outpatient R UNKNOWN, ATTENDING [facility] [id number] [facility] 2020-02-07 08:37:27 2020-02-07 09:07:27 Telemedici ne Visit Lana Horton Unknown, Attending [facility] 1.114 350.1.13.10 4.2.7.2.686 [id number] [facility] 2019-11-25 09:15:00 2019-11-25 09:15:00 Outpatient R JASON ZHAO [facility] [id number] [facility] 2019-11-25 07:56:09 2019-11-25 08:11:09 Telemedici ne Visit Per Zhaoromamark Keating [facility] Building 1.114 350.1.13.10 4.2.7.2.686 [id number] [facility] 2019-11-24 00:00:00 2019-11-24 00:00:00 Telephone Estefani Ram [facility] Office Building One 1..114 350.1.13.10 4.2.7.2.686 [id number] [facility] 2019-10-28 00:00:00 2019-10-28 00:00:00 Refill Estefani Ram [facility] Office Building One 1.2.840.114 350.1.13.10 4.2.7.2.686 [id number] [facility] 2019-09-16 16:24:55 2019-09-18 10:22:43 Office Visit Debbi Cervantes [facility] Office Building One 1.2.840.114 350.1.13.10 4.2.7.2.686 [id number] [facility] 2019-09-18 00:00:00 2019-09-18 00:00:00 Telephone Estefani Ram [facility] Office Building One 1.2840.114 350.1.13.10 4.2.7.2.686 [id number] [facility] 2019-09-16 17:11:58 2019-09-16 17:26:58 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 Pob, Adc Lab Main Debbi Cervantes [facility] Building 1.2.840.114 350.1.13.10 4.2.7.2.686 [id number] [facility] 2019-07-24 00:00:00 2019-07-24 00:00:00 Letter (Out) Estefani Ram [facility] OFFICE BUILD[facility] ONE 1.2840.114 350.1.13.10 4.2.7.2.686 [id number] [id number] [facility] Results Test Description Test Time Test Comments Results Result Co mments Source [facility] [id number] 17:40:14* Test Item Value Reference Range Interpretation Comme nts POCT Molecular Strep (test c ode = 77787-5) Negative Negative Lab Interpretation (test cod e = 31994-8) Normal [facility]ATING [id number] 00:33:00 * Test Item Value Reference Range Interpretation Comme nts TSH (test code = 4838616505) See_Comment H [Automated messa ge] The system which generated this result transmitted reference range: 0.45 - 4.70 mIU/L. The reference range was not used to interpret this result as normal/abnormal. Lab Interpretation (test code = 81292-5) Abnormal [facility] [id number] 00:19:00* Test Item Value Reference Range Interpretation Comme nts FREE T4 (test code = 7594468098) 0.87 ng/dL 0.78-2.2 Lab Interpretation (test cod e = 00950-4) Normal [facility]
[2023-10-02 00:22] LABS: Absolute Lymphocytes (CBC) 2.7 K/uL (0.7-4.9); Hematocrit 36.2 % (36.0-45.0); Lymphocytes % 32.7 % (15.3-44.8); MCV 91.1 fL (80-100); Platelets 152 thou/uL (152-406); RBC Red Blood Cell Count 3.98 M/uL (3.86-4.86)
[2023-10-02 00:27] LABS: Specific Gravity 1.019 (1.005-1.030)
[2023-10-02 00:37] LABS: Specific Gravity 1.019 (1.005-1.030); Urine Bacteria <20 /HPF (<20); Urine Bilirubin NEGATIVE (Negative); Urine Blood 1+ (Negative); Urine Clarity Extremely Turbid (Clear); Urine Color Yellow (Yellow); Urine Glucose NEGATIVE (Negative); Urine Mucus Slight /HPF (None Seen); Urine Protein NEGATIVE (Negative); Urine RBC <5 /HPF (None Seen); Urine Urobilinogen 2+ (Normal)
[2023-10-02 01:11] LABS: Albumin 2.7 g/dL (3.4-5.0); Bilirubin Total 1.8 mg/dL (0.2-1.0); Potassium 3.4 mEq/L (3.5-5.1); Protein, Total 9.8 g/dL (6.4-8.2)
--- NOTE | 2023-10-02 01:19 | ER ---
Nurse's Notes [facility] Name: Gricel Tillman Age: 33 yrs Sex: Female : 1990 Arrival Date: 10/01/2023 Time: 23:20 Bed 5 Private MD: Diagnosis: Other cholelithiasis without obstruction Presentation: 10/01 23:30 Initial Sepsis Screen: Does the patient have a suspected source of infection? No. jw7 Patient's initial sepsis screen is negative. 23:32 Chief complaint: Patient states: she started having mid/upper abdominal pain that she ap3 describes as a burning/stabbing pain that radiates to her back. patient currently reports her pain to be a 6/10 on the pain scale. Coronavirus screen: At this time, the client does not indicate any symptoms associated with coronavirus-19. Ebola Screen: No symptoms or risks identified at this time. Initial Sepsis Screen: Does the patient meet any 2 criteria? HR > 90 bpm. Risk Assessment: Do you want to hurt yourself or someone else? Patient reports no desire to harm self or others. Onset of symptoms was September 30, 2023. 23:32 Method Of Arrival: Ambulatory ap3 23:32 Acuity: ROYA 3 ap3 Triage Assessment: 23:35 General: Appears uncomfortable, Behavior is calm, cooperative, appropriate for age. ap3 Pain: Complains of pain in epigastric area Pain radiates to back Pain currently is 6 out of 10 on a pain scale. at worst was 10 out of 10 on a pain scale. Quality of pain is described as burning, sharp, stabbing. Neuro: Level of Consciousness is awake, alert, obeys commands, Oriented to person, place, time, situation, Appropriate for age. Cardiovascular: Patient's skin is warm and dry. Respiratory: Airway is patent Respiratory effort is even, unlabored, Respiratory pattern is regular, symmetrical. GI: Reports upper abdominal pain, constipation. 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 Flu vaccine is up to date. - Social history:: Smoking status: Reported history of juuling and/or vaping. Patient uses alcohol, on the weekends. Screenin:[address] [facility] ED Fall Risk Assessment (Adult) History of falling in the last 3 months, ap3 including since admission No falls in past 3 months (0 pts). Abuse screen: Denies threats or abuse. Nutritional screening: No deficits noted. Tuberculosis screening: No symptoms or risk factors identified. Assessment: 23:34 General: Appears uncomfortable, Behavior is cooperative. Pain: Complains of pain in ha1 epigastric area Pain does not radiate. Pain at worst was 10 out of 10 on a pain scale. Quality of pain is described as burning, stabbing, Pain began gradually. Neuro: Level of Consciousness is awake, alert, obeys commands, Oriented to person, place, time, situation. Cardiovascular: Capillary refill < 3 seconds Patient's skin is warm and dry. Respiratory: Airway is patent Respiratory effort is even, unlabored, Respiratory pattern is regular, symmetrical. GI: Abdomen is round non-distended, Bowel sounds present X 4 quads. Abd is soft and non tender Reports upper abdominal pain, epigastric pain. Derm: Skin is pink, warm \T\ dry. Musculoskeletal: Circulation, motion, and sensation intact. Range of motion: intact in all extremities. 10/02 00:00 Reassessment: Patient appears in no apparent distress at this time. Patient and/or jw7 family updated on plan of care and expected duration. Pain level reassessed. Patient is alert, oriented x 3, equal unlabored respirations, skin warm/dry/pink. 00:01 Reassessment: US at bedside. hb 01:00 Reassessment: Patient appears in no apparent distress at this time. Patient and/or jw7 family updated on plan of care and expected duration. Pain level reassessed. Patient is alert, oriented x 3, equal unlabored respirations, skin warm/dry/pink. 02:01 Reassessment: Patient and/or family updated on plan of care and expected duration. Pain ha1 level reassessed. Patient is alert, oriented x 3, equal unlabored respirations, skin warm/dry/pink. Patient denies pain at this time. Patient states feeling better. Patient states symptoms have improved. Vital Signs: 10/01 23:32 BP 144 / 83; Pulse 93; Resp 17; Temp 98.2; Pulse Ox 100% ; Weight 104.33 kg; Height 5 ap3 ft. 7 in. ; Pain 6/10; 10/02 00:00 BP 125 / 78; Pulse 73; Resp 16; Pulse Ox 99% ; jw7 01:00 BP 134 / 82; Pulse 76; Resp 16 S; Pulse Ox 98% on R/A; jw7 02:01 BP 120 / 74; Pulse 71; Resp 17 S; Temp 98.1; Pulse Ox 100% on R/A; ha1 10/01 23:32 Body Mass Index 36.02 (104.33 kg, 170.18 cm) ap3 10/01 23:32 Pain Scale: Adult ap3 ED Course: 10/01 23:25 Patient arrived in ED. gm2 23:26 Martin Nickerson MD is Attending Physician. ec2 23:30 Patient has correct armband on for positive identification. Bed in low position. Call [facility] light in reach. 23:33 Triage completed. ap3 23:36 Arm band placed on right wrist. ap3 23:45 Initial lab(s) drawn, by me, sent to lab. Inserted saline lock: 20 gauge in right ap3 antecubital area, using aseptic technique. Blood collected. 10/02 00:51 Abdomen Limited US In Process Unspecified. EDMS 01:19 Jabier Holt MD is Referral Physician. ec2 02:03 No provider procedures requiring assistance completed. IV discontinued, intact, ha1 bleeding controlled, No redness/swelling at site. Pressure dressing applied. 02:04 Provided Education on: following up with DR. Holt. ha1 Administered Medications: 00:05 Drug: NS 0.9% IV 1000 ml IV at 1 bolus Per protocol; 1000 mL bolus Route: IV; Rate: 1 hb bolus; Site: right antecubital; 01:50 Follow up: Response: No adverse reaction; IV Status: Completed infusion; IV Intake: ha1 1000ml 00:05 Drug: TORadol - Ketorolac IVP 15 mg IVP once Route: IVP; Site: right antecubital; hb 00:30 Follow up: Response: No adverse reaction; Marked relief of symptoms; Pain is decreased ha1 00:05 Drug: Ondansetron IVP 4 mg IVP once; over 2 minutes Route: IVP; Site: right antecubital;hb 00:30 Follow up: Response: No adverse reaction; Marked relief of symptoms ha1 00:05 Drug: morphine IVP or IV 4 mg IVP once over 4 mins Route: IVP; Infused Over: 4 mins; hb Site: right antecubital; 00:30 Follow up: Response: No adverse reaction; Pain is decreased; RASS: Alert and Calm (0) ha1 00:05 Drug: Famotidine IVP 10 mg IVP once; dilute with 10 mL 0.9% NaCl; give over 2 minutes hb Route: IVP; Site: right antecubital; 01:00 Follow up: Response: No adverse reaction; Marked relief of symptoms ha1 Medication: 10/01 23:37 VIS not applicable for this client. ap3 Intake: 10/02 01:50 IV: 1000ml; Total: 1000ml. ha1 Outcome: 01:19 Discharge ordered by . ec2 02:03 Discharged to home ambulatory, with family, ha1 02:03 Condition: stable 02:03 Discharge instructions given to patient, family, Instructed on discharge instructions, follow up and referral plans. medication usage, Demonstrated understanding of instructions, follow-up care, medications, Prescriptions given X 1, 02:04 Patient left the ED. ha1 Signatures: Dispatcher [employer] Kristin Haskins RN RN Leia Tee RN RN ap3 Monserrat Liao RN RN jw7 Anabel Carty RN RN 1 Martin Nickerson MD MD ec2 Lucia Clancy 2 Corrections: (The following items were deleted from the chart) 02:03 00:00 BP 120 / 74; Pulse 73bpm; Resp 16bpm; Pulse Ox 99%; jw7 jw7
--- NOTE | 2023-10-02 01:19 | EDPHYS ---
[facility] Name: Gricel Tillman Age: 33 yrs Sex: Female : 1990 Arrival Date: 10/01/2023 Time: 23:20 Bed 5 Private MD: ED Physician Martin Nickerson HPI: 10/01 23:42 This 33 yrs old Female presents to ER via Ambulatory with complaints of ec2 Abdominal Pain, Upper back pain/ sharp. 23:42 . ec2 23:42 Patient arrives today for epigastric, right upper quadrant abdominal pain. Reports pain ec2 started just after eating tacos. Reports no previous similar symptoms, no recent alcohol use. Reports no urinary complaints, no cough or cold symptoms, no difficulty breathing. Does report a history of hypothyroidism. Previous tubal ligation. 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 Flu vaccine is up to date. - Social history:: Smoking status: Reported history of juuling and/or vaping. Patient uses alcohol, on the weekends. ROS: 23:42 Constitutional: as per hpi ec2 Exam: 23:42 Constitutional: GEN: NAD Head: atraumatic Eyes: EOMI Ears: External ears are ec2 normal. CV: regular rate LUNGS: no respiratory distress ABD: non-distended, soft, tender in the epigastrium, no guarding, not rigid SKIN: no evidence of rashes MSK: no evidence of trauma NEURO: moves all extremities equally Vital Signs: 23:32 BP 144 / 83; Pulse 93; Resp 17; Temp 98.2; Pulse Ox 100% ; Weight 104.33 kg; Height 5 ap3 ft. 7 in. ; Pain 6/10; 10/02 00:00 BP 125 / 78; Pulse 73; Resp 16; Pulse Ox 99% ; jw7 01:00 BP 134 / 82; Pulse 76; Resp 16 S; Pulse Ox 98% on R/A; jw7 02:01 BP 120 / 74; Pulse 71; Resp 17 S; Temp 98.1; Pulse Ox 100% on R/A; ha1 10/01 23:32 Body Mass Index 36.02 (104.33 kg, 170.18 cm) ap3 10/01 23:32 Pain Scale: Adult ap3 MDM: 10/01 23:26 Patient medically screened. ec2 23:42 Data reviewed: vital signs. ED course: Patient arrives today for epigastric, right ec2 upper quadrant abdominal pain. Examination remarkable for well-appearing nontoxic in which was otherwise in no acute distress. Will obtain lab work, ultrasound. Currently evaluated for cholelithiasis, pancreatitis, electrolyte disturbances, renal and liver abnormality. 10/02 01:18 ED course: Metabolic profile shows slight hypokalemia, ast/ ALT elevation at 287 and ec2 269, minimal T. bili elevation at 1.8. Cholelithiasis without cholecystitis noted. CBD within normal ranges, low suspicion for CBD blockage. On reassessment patient with marked improvement in symptoms. Will discharge home have her follow-up with a primary care doctor as well as general surgery to schedule elective outpatient cholecystectomy. . 10/01 23:41 Order name: CBC with Diff; Complete Time: 00:33 ec2 10/01 23:41 Order name: CMP; Complete Time: 01:17 ec2 10/01 23:41 Order name: Lipase; Complete Time: 01:17 ec2 10/01 23:41 Order name: Test, Urine; Complete Time: 00:42 ec2 10/01 23:41 Order name: Urinalysis w/ reflexes; Complete Time: 00:42 ec2 10/01 23:41 Order name: Abdomen Limited US ec2 10/01 23:41 Order name: IV Saline Lock; Complete Time: 23:45 ec2 10/01 23:41 Order name: Labs collected and sent; Complete Time: 23:45 ec2 Administered Medications: 00:05 Drug: NS 0.9% IV 1000 ml IV at 1 bolus Per protocol; 1000 mL bolus Route: IV; Rate: 1 hb bolus; Site: right antecubital; 01:50 Follow up: Response: No adverse reaction; IV Status: Completed infusion; IV Intake: ha1 1000ml 00:05 Drug: TORadol - Ketorolac IVP 15 mg IVP once Route: IVP; Site: right antecubital; hb 00:30 Follow up: Response: No adverse reaction; Marked relief of symptoms; Pain is decreased ha1 00:05 Drug: Ondansetron IVP 4 mg IVP once; over 2 minutes Route: IVP; Site: right antecubital;hb 00:30 Follow up: Response: No adverse reaction; Marked relief of symptoms ha1 00:05 Drug: morphine IVP or IV 4 mg IVP once over 4 mins Route: IVP; Infused Over: 4 mins; hb Site: right antecubital; 00:30 Follow up: Response: No adverse reaction; Pain is decreased; RASS: Alert and Calm (0) ha1 00:05 Drug: Famotidine IVP 10 mg IVP once; dilute with 10 mL 0.9% NaCl; give over 2 minutes hb Route: IVP; Site: right antecubital; 01:00 Follow up: Response: No adverse reaction; Marked relief of symptoms ha1 Disposition Summary: 10/02/23 01:19 Discharge Ordered Condition: Stable ec2 Diagnosis - Other cholelithiasis without obstruction ec2 Followup: ec2 - With: Jabier Holt MD - When: - Reason: Continuance of care Discharge Instructions: - Discharge Summary Sheet ec2 - Cholelithiasis ec2 Forms: - Medication Reconciliation Form ec2 - Thank You Letter ec2 - Antibiotic Education ec2 - Prescription Opioid Use ec2 - Patient Portal Instructions ec2 - Leadership Thank You Letter ec2 Prescriptions: - acetaminophen-codeine 300-15 mg Oral tablet - take 1 tablet ORAL route 2 times per day; 15 tablet; Refills: 0, Product ec2 Selection Permitted Signatures: Dispatcher [employer] Kristin Haskins RN RN Leia Tee RN RN 3 Martin Nickerson MD MD ec2 Anabel Carty RN ha1
[2023-10-02 02:36] VITALS: BP 120/74; TEMP 98.1; O2SAT 100
--- NOTE | 2023-10-02 14:19 | RAD REPORT ---
EXAM DESCRIPTION: US - Abdomen Exam Limited - 10/02/2023 12:49 am CLINICAL HISTORY: 33 years, Female, epigastric/ruq abd pain, GB eval COMPARISON: None TECHNIQUE: Grayscale and color doppler images of the right upper quadrant are provided for evaluatio n. FINDINGS: Liver: Was not imaged Gallbladder: There are several echogenic structure with posterior shadowing corresponding to cholelit hiasis. Gallbladder wall thickness measures 2.4 mm. There is no pericholecystic fluid. Sonographic Mu rphy's sign was not reported by the batch or continuous still operator. Biliary tree: Common duct measures 3.4 mm. No intra and/or extrahepatic biliary ductal dilatation. Pancreas: Not imaged Right kidney: Not imaged. Abdominal cavity: Not imaged. Aorta and IVC: Not imaged. IMPRESSION: Cholelithiasis without sonographic evidence of acute cholecystitis. 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 The interpreting radiologist is fully responsible for the content of the report
== END ==
LOC: ER 23:20
DX: K80.80 Other cholelithiasis without obstruction (principal); Z88.7 Allergy status to serum and vaccine; Z28.310 Unvaccinated for COVID-19
CPT/HCPCS: 85025; 81001; 36415; 81025; 83690; 80053; 76705; J2405; J7030

== ENCOUNTER 2024-02-05 21:40 | Emergency (ER) | payer BC ==
[2024-02-05] MEDS ORDERED: KETOROLAC 30 MG/ML INJ ONE (22:09)
[2024-02-05] MEDS ORDERED: METOCLOPRAMIDE 10 MG/2mL INJ ONE (22:09)
[2024-02-05] MEDS ORDERED: DIPHENHYDRAMINE 50 MG/ML VIAL ONE (22:09)
[2024-02-05] MEDS ORDERED: MORPHINE 4 MG/ML SYR ONE (22:10)
[2024-02-05] MEDS ORDERED: NA CHLORIDE 0.9% 1,000 ML ONE (22:10)
[2024-02-05 22:25] LABS: Absolute Basophils 0.2 K/uL (0-0.5); Absolute Eosinophils 0.1 K/uL (0-0.5); Absolute Monocytes 1.6 K/uL (0.1-1.3); Absolute Neutrophil 12.3 K/uL (1.8-8.0); Eosinophils % 0.7 % (0-4.4); Hematocrit 35.5 % (36.0-45.0); Lymphocytes % 21.8 % (15.3-44.8); MCH 29.7 pg (27.0-35.0); MCHC 33.7 g/dL (32.0-36.0); MCV 88.1 fL (80-100); MPV 8.1 fL (7.6-11.3); Monocytes % 8.8 % (3.3-12.3); Neutrophils % 67.7 % (41.7-73.7); Platelets 214 thou/uL (152-406); RBC Red Blood Cell Count 4.03 M/uL (3.86-4.86); Red Cell Distribution Width 15.6 % (12.1-15.2)
[2024-02-05 22:41] LABS: Albumin 3.2 g/dL (3.4-5.0); Albumin/Globulin Ratio 0.7 (1.1-1.8); Anion Gap 7.4 mEq/L (5.0-15.0); Bilirubin Direct 0.3 mg/dL (0-0.2); Bilirubin Indirect, Calculated 0.3 mg/dL (0.2-0.8); Bilirubin Total 0.6 mg/dL (0.2-1.0); Globulin 4.6 g/dL (2.3-3.5); Potassium 3.4 mEq/L (3.5-5.1); Protein, Total 7.8 g/dL (6.4-8.2)
[2024-02-06 01:13] LABS: SARS-CoV-2 Antigen CONTROL BLUE LINE VIS/BG OK; SARS-CoV-2 Antigen Rapid Res Negative (Negative)
--- NOTE | 2024-02-06 01:19 | ER ---
Nurse's Notes [facility] Name: Gricel Tillman Age: 34 yrs Sex: Female : 1990 Arrival Date: 02/05/2024 Time: 21:40 Bed 2 Private MD: Diagnosis: Other headache syndrome;Acute onset moderate to severe headache Presentation: 02/04 21:58 Chief complaint: Patient states: I checked my bp at home and it was high at 140/94, I bm8 have a really bad headache that I cant get rid of and Covid is running through my work place. Coronavirus screen: Vaccine status: Patient reports being unvaccinated. Ebola Screen: Patient negative for fever greater than or equal to 101.5 degrees Fahrenheit, and additional compatible Ebola Virus Disease symptoms Patient denies exposure to infectious person. Patient denies travel to an Ebola-affected area in the 21 days before illness onset. No symptoms or risks identified at this time. Initial Sepsis Screen: Does the patient meet any 2 criteria? No. Patient's initial sepsis screen is negative. Does the patient have a suspected source of infection? No. Patient's initial sepsis screen is negative. Risk Assessment: Do you want to hurt yourself or someone else? Patient reports no desire to harm self or others. Onset of symptoms was February 05, 2024 at 12:00. Care prior to arrival: Medication(s) given: Tylenol, 1000 mg. 21:58 Acuity: ROYA 3 bm8 21:58 Method Of Arrival: Ambulatory 8 Triage Assessment: 22:02 Headache History: The patient has had previous headaches and this one is similar to bm8 previous episodes. General: Appears in no apparent distress. uncomfortable, Behavior is calm, cooperative, appropriate for age. Pain: Complains of pain in forehead, right islam and left islam Pain does not radiate. Pain currently is 9 out of 10 on a pain scale. Quality of pain is described as aching, Pain began 4 hours ago. Pain: Also complains of inability to concentrate. EENT: No deficits noted. No signs and/or symptoms were reported regarding the EENT system. Neuro: No deficits noted. Carias Agitation-Sedation Scale (RASS): 0 - Alert and Calm Level of Consciousness is awake, alert, obeys commands, Oriented to person, place, time, situation, Appropriate for age Senior Hr Business Partner are equal bilaterally Moves all extremities. Full function Gait is steady, Speech is normal, Facial symmetry appears normal, Pupils are PERRLA, Pupil Size: 3 Reports dizziness, headache. Cardiovascular: No deficits noted. Heart tones S1 S2 present. Cardiovascular: Capillary refill < 3 seconds Patient's skin is warm and dry. Respiratory: Airway is patent Respiratory effort is even, unlabored, Respiratory pattern is regular, symmetrical, Breath sounds are clear bilaterally. GI: No deficits noted. No signs and/or symptoms were reported involving the gastrointestinal system. : No deficits noted. No signs and/or symptoms were reported regarding the genitourinary system. Derm: No deficits noted. No signs and/or symptoms reported regarding the dermatologic system. Musculoskeletal: No deficits noted. No signs and/or symptoms reported regarding the musculoskeletal system. 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 - Infectious Disease History:: Denies. - Social history:: Smoking status: Reported history of juuling and/or vaping. Patient uses alcohol, but reports only rare drinking. Patient/guardian denies using street drugs. - Family history:: not pertinent. Screenin:05 [facility] ED Fall Risk Assessment (Adult) History of falling in the last 3 months, bm8 including since admission No falls in past 3 months (0 pts) Confusion or Disorientation No (0 pts) Intoxicated or Sedated No (0 pts) Impaired Gait No (0 pts) Mobility Assist Device Used No (0 pt) Altered Elimination No (0 pt) Score/Fall Risk Level 0 - 2 = Low Risk Oriented to surroundings, Maintained a safe environment, Educated pt \T\ family on fall prevention, incl call for assistance when getting out of bed, Assessed \T\ reinforced patient's understanding of fall precautions. Abuse screen: Denies threats or abuse. Nutritional screening: No deficits noted. Tuberculosis screening: No symptoms or risk factors identified. Assessment: 22:05 Reassessment: see triage assessment. bm8 23:30 Reassessment: Patient appears in no apparent distress at this time. No changes from [facility] previously documented assessment. Patient and/or family updated on plan of care and expected duration. Pain level reassessed. Patient is alert, oriented x 3, equal unlabored respirations, skin warm/dry/pink. 02/05 00:30 Reassessment: Patient appears in no apparent distress at this time. No changes from [facility] previously documented assessment. Patient and/or family updated on plan of care and expected duration. Pain level reassessed. Patient is alert, oriented x 3, equal unlabored respirations, skin warm/dry/pink. 01:30 Reassessment: Patient appears in no apparent distress at this time. No changes from [facility] previously documented assessment. Patient and/or family updated on plan of care and expected duration. Pain level reassessed. Patient is alert, oriented x 3, equal unlabored respirations, skin warm/dry/pink. Vital Signs: 02/04 21:58 BP 127 / 82; Pulse 104; Resp 19; Temp 98.7; Pulse Ox 100% ; Weight 99.79 kg; Height 5 bm8 ft. 7 in. ; Pain 9/10; 23:00 BP 132 / 83; Pulse 90; Resp 18 S; Pulse Ox 98% on R/A; 7 02/05 00:30 BP 135 / 87; Pulse 88; Resp 22 S; Pulse Ox 100% on R/A; 7 01:35 BP 128 / 87; Pulse 85; Resp 21 S; Temp 98.3(O); Pulse Ox 100% ; [facility] 02/04 21:58 Body Mass Index 34.46 (99.79 kg, 170.18 cm) 8 02/04 21:58 Pain Scale: Adult bm8 Adalberto Coma Score: 02/04 22:05 Eye Response: spontaneous(4). Motor Response: obeys commands(6). Verbal Response: bm8 oriented(5). Total: 15. 02/05 19:43 Eye Response: spontaneous(4). Motor Response: obeys commands(6). Verbal Response: sp4 oriented(5). Total: 15. 19:43 Eye Response: spontaneous(4). Motor Response: obeys commands(6). Verbal Response: sp4 oriented(5). Total: 15. ED Course: 02/04 21:42 Patient arrived in ED. ra3 21:56 Herber Kwong MD is Attending Physician. sp4 21:58 Jared Adkins, RN is Primary Nurse. bm8 22:00 Triage completed. bm8 22:02 Arm band placed on right wrist. bm8 22:05 Patient has correct armband on for positive identification. Bed in low position. Call bm8 light in reach. Side rails up X2. Adult w/ patient. Client placed on continuous cardiac and pulse oximetry monitoring. NIBP monitoring applied. equipment monitor phototypesetting on. Pulse ox on. NIBP on. Door closed. Noise minimized. Verbal reassurance given. 22:05 No provider procedures requiring assistance completed. bm8 22:17 Initial lab(s) drawn, by ED staff, sent to lab. EKG done, by ED staff, reviewed by Royce Kwong MD. Inserted saline lock: 22 gauge in left antecubital area, using aseptic technique. Blood collected. 22:20 LFT's Sent. vk 22:20 CBC with Diff Sent. vk 22:20 Basic Metabolic Panel Sent. vk 22:20 Test, Serum Sent. vk 22:30 Provided Education on: Use of Call Light. jw7 23:00 CT Head Brain wo Cont In Process Unspecified. EDMS 02/05 01:36 IV discontinued, intact, bleeding controlled, No redness/swelling at site. Pressure jw7 dressing applied. Administered Medications: 02/04 22:17 Drug: morphine IVP or IV 4 mg IVP once over 4 mins Route: IVP; Infused Over: 4 mins; [facility] Site: left antecubital; 02/05 01:37 Follow up: Response: No adverse reaction; Marked relief of symptoms 7 02/04 22:17 Drug: Ketorolac IVP 30 mg IVP once Route: IVP; Site: left antecubital; [facility] 02/05 01:37 Follow up: Response: No adverse reaction; Marked relief of symptoms 7 02/04 22:17 Drug: metoCLOPramide IVP 10 mg IVP once; over 1 to 2 minutes Route: IVP; Site: left [facility] antecubital; 02/05 01:37 Follow up: Response: No adverse reaction; Marked relief of symptoms [facility] 02/04 22:17 Drug: NS 0.9% IV 1000 ml IV at 1 bolus Per protocol; 1000 mL bolus Route: IV; Rate: 1 bm8 bolus; Site: left antecubital; 02/05 01:36 Follow up: Response: No adverse reaction; IV Status: Completed infusion; IV Intake: jw7 1000ml 02/04 22:17 Drug: diphenhydrAMINE IVP 50 mg IVP once Route: IVP; Site: left antecubital; bm8 02/05 01:36 Follow up: Response: No adverse reaction; Marked relief of symptoms jw7 Medication: 02/04 22:05 VIS not applicable for this client. bm8 Intake: 02/05 01:36 IV: 1000ml; Total: 1000ml. jw7 Outcome: 01:18 Discharge ordered by . spIain 01:36 Discharged to home ambulatory, jw7 01:36 Condition: stable 01:36 Discharge instructions given to patient, Instructed on discharge instructions, follow up and referral plans. medication usage, Demonstrated understanding of instructions, follow-up care, medications, Prescriptions given X 1, 01:37 Patient left the ED. jw7 Signatures: Dispatcher [employer] EDMS Monserrat Liao RN RN jw7 Herber Kwong MD MD sp4 Alva, Ruby ra3 Kruse, Vivian vk McDonald, Brad, RN RN bm8
--- NOTE | 2024-02-06 01:19 | EDPHYS ---
Physician Documentation [facility] Name: Gricel Tillman Age: 34 yrs Sex: Female : 1990 Arrival Date: 02/05/2024 Time: 21:40 Bed 2 Private MD: ED Physician Herber Kwong HPI: 02/04 21:56 This 34 yrs old Female presents to ER via Unassigned with complaints of Blood sp4 Pressure Problem, Headache, Dizziness. 02/05 19:43 Patient reported moderate to severe headache that is primary cause for arrival . . 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 - Infectious Disease History:: Denies. - Social history:: Smoking status: Reported history of juuling and/or vaping. Patient uses alcohol, but reports only rare drinking. Patient/guardian denies using street drugs. - Family history:: not pertinent. ROS: 02/05 19:43 Constitutional: Negative for fever, chills, and weight loss, positive headache, sp4 elevated blood pressure and positive dizziness All other systems are negative, Exam: 07:19 Constitutional: This is a well developed, well nourished patient who is awake, alert, sp4 and in no acute distress. Head/Face: Normocephalic, atraumatic. Eyes: Pupils equal round and reactive to light, extra-ocular motions intact. Lids and lashes normal. Conjunctiva and sclera are not injected. Cornea within normal limits. Periorbital areas with no swelling, redness, or edema. ENT: Nares patent. No nasal discharge, no septal abnormalities noted. Tympanic membranes are normal and external auditory canals are clear. Oropharynx with no redness, swelling, or masses, exudates, or evidence of obstruction, uvula midline. Mucous membranes moist. Neck: Trachea midline, no thyromegaly or masses palpated, and no cervical lymphadenopathy. Supple, full range of motion without nuchal rigidity, or vertebral point tenderness. Chest/axilla: Normal chest wall appearance and motion. Nontender with no deformity. No lesions are appreciated. Cardiovascular: Regular rate and rhythm with a normal S1 and S2. No gallops, murmurs, or rubs. Normal PMI, no JVD. No pulse deficits. Respiratory: Lungs have equal breath sounds bilaterally, clear to auscultation and percussion. No rales, rhonchi or wheezes noted. No increased work of breathing, no retractions or nasal flaring. Abdomen/GI: Soft, with normal bowel sounds. No distension or tympany. No guarding or rebound. No evidence of tenderness throughout. Back: No spinal tenderness. No costovertebral tenderness. Skin: Warm, dry with normal turgor. Normal color with no rashes, no lesions, and no evidence of cellulitis. MS/ Extremity: Pulses equal, no cyanosis. Neurovascular intact. Full, normal range of motion. Neuro: Awake and alert, GCS 15, oriented to person, place, time, and situation. Cranial nerves II-XII grossly intact. Motor strength 5/5 in all extremities. Sensory grossly intact. Psych: Awake, alert, with orientation to person, place and time. Behavior, mood, and affect are within normal limits 07:19 ECG was reviewed by the Attending Physician. EKG at 2156 normal sinus rhythm at the rate of 99. Otherwise normal Vital Signs: 02/04 21:58 BP 127 / 82; Pulse 104; Resp 19; Temp 98.7; Pulse Ox 100% ; Weight 99.79 kg; Height 5 bm8 ft. 7 in. ; Pain 9/10; 23:00 BP 132 / 83; Pulse 90; Resp 18 S; Pulse Ox 98% on R/A; jw7 02/05 00:30 BP 135 / 87; Pulse 88; Resp 22 S; Pulse Ox 100% on R/A; jw7 01:35 BP 128 / 87; Pulse 85; Resp 21 S; Temp 98.3(O); Pulse Ox 100% ; 7 02/04 21:58 Body Mass Index 34.46 (99.79 kg, 170.18 cm) [facility] 02/04 21:58 Pain Scale: Adult bm8 Adalberto Coma Score: 02/04 22:05 Eye Response: spontaneous(4). Motor Response: obeys commands(6). Verbal Response: bm8 oriented(5). Total: 15. 02/05 19:43 Eye Response: spontaneous(4). Motor Response: obeys commands(6). Verbal Response: sp4 oriented(5). Total: 15. 19:43 Eye Response: spontaneous(4). Motor Response: obeys commands(6). Verbal Response: sp4 oriented(5). Total: 15. MDM: 02/04 22:04 Patient medically screened. sp4 02/05 01:12 ED course: EXAM DESCRIPTION: CT Head Brain Wo Contrast CLINICAL HISTORY: acute headache sp4 COMPARISON: None Available. TECHNIQUE: Contiguous axial images of the brain were obtained without the administration of intravenous contrast. This exam was performed according to our departmental dose-optimization program, which includes automated exposure control, adjustment of the mA and/or kV according to patient size and/or use of iterative reconstruction technique. FINDINGS: There is no acute intracranial hemorrhage or mass effect. Ventricular system is within normal limits. There is adequate king-white matter differentiation. There is no skull fracture. The visualized paranasal sinuses and mastoid air cells are within normal limits. IMPRESSION: No acute intracranial abnormalities. . 19:43 Differential diagnosis: cluster headache, hypoglycemia, hyponatremia, migraine, sp4 vasomotor headache. Data reviewed: vital signs, nurses notes, lab test result(s), EKG, radiologic studies, CT scan. 02/04 22:04 Order name: Basic Metabolic Panel; Complete Time: 01:13 sp4 02/04 22:04 Order name: CBC with Diff; Complete Time: 01: sp4 02/04 22:04 Order name: LFT's; Complete Time: 01: sp4 02/04 22:04 Order name: Test, Serum; Complete Time: 01:13 sp4 02/05 00:18 Order name: SARS-COV-2 Antigen Rapid; Complete Time: 01:15 bm8 02/04 22:04 Order name: CT Head Brain wo Cont sp4 02/04 22:04 Order name: Cardiac monitoring; Complete Time: 22:06 sp4 02/04 22:04 Order name: EKG - Nurse/Tech; Complete Time: 22:06 sp4 02/04 22:04 Order name: IV Saline Lock; Complete Time: 22:17 sp4 02/04 22:04 Order name: Labs collected and sent; Complete Time: 22: sp4 02/04 22:04 Order name: O2 Per Protocol; Complete Time: 22: sp4 02/04 22:04 Order name: O2 Sat Monitoring; Complete Time: 22:17 sp4 EC:19 Rate is 99 beats/min. Rhythm is regular, Normal Sinus Rhythm. QRS Dray[place] is Normal. GA sp4 interval is normal. QRS interval is normal. QT interval is normal. No Q waves. T waves are Normal. No ST changes noted. Clinical impression: Normal ECG. Interpreted by me. Reviewed by me. Administered Medications: 02/04 22:17 Drug: morphine IVP or IV 4 mg IVP once over 4 mins Route: IVP; Infused Over: 4 mins; 8 Site: left antecubital; 02/05 01:37 Follow up: Response: No adverse reaction; Marked relief of symptoms 7 02/04 22:17 Drug: Ketorolac IVP 30 mg IVP once Route: IVP; Site: left antecubital; [facility] 02/05 01:37 Follow up: Response: No adverse reaction; Marked relief of symptoms jw7 02/04 22:17 Drug: metoCLOPramide IVP 10 mg IVP once; over 1 to 2 minutes Route: IVP; Site: left [facility] antecubital; 02/05 01:37 Follow up: Response: No adverse reaction; Marked relief of symptoms 7 02/04 22:17 Drug: NS 0.9% IV 1000 ml IV at 1 bolus Per protocol; 1000 mL bolus Route: IV; Rate: 1 bm8 bolus; Site: left antecubital; 02/05 01:36 Follow up: Response: No adverse reaction; IV Status: Completed infusion; IV Intake: jw7 1000ml 02/04 22:17 Drug: diphenhydrAMINE IVP 50 mg IVP once Route: IVP; Site: left antecubital; [facility] 02/05 01:36 Follow up: Response: No adverse reaction; Marked relief of symptoms jw7 Disposition Summary: 02/06/24 01:18 Discharge Ordered Notes: Location: Home sp4 Problem: new sp4 Symptoms: have improved sp4 Condition: Stable sp4 Diagnosis - Other headache syndrome sp4 - Acute onset moderate to severe headache sp4 Followup: sp4 - With: Private Physician - When: 7 - 10 days - Reason: Recheck today's complaints Discharge Instructions: - Discharge Summary Sheet sp4 - General Headache Without Cause sp4 Forms: - Patient Portal Instructions sp4 Prescriptions: - Fioricet 50-300-40 mg Oral capsule - take 1 capsule ORAL route every 6 hours PRN headache; 30 capsule; Refills: 0, sp4 Product Selection Permitted Signatures: Dispatcher [employer] EDMS Herber Kwong MD MD sp4 Jared Adkins RN RN bm8 Monserrat Liao RN jw7 Corrections: (The following items were deleted from the chart) 02/04 22:04 22:04 Head Brain Wo Cont+CT.RAD.BRZ ordered. EDMS EDMS
[2024-02-06 01:58] VITALS: BP 128/87; TEMP 98.3; O2SAT 100
--- NOTE | 2024-02-06 10:39 | RAD REPORT ---
EXAM DESCRIPTION: CT - Head Brain Wo Cont - 02/06/2024 6:49 am CLINICAL HISTORY: Acute headache COMPARISON: None Available. TECHNIQUE: Contiguous axial images of the brain were obtained without the administration of intraven ous contrast. This exam was performed according to our departmental dose-optimization program, which includes automated exposure control, adjustment of the mA and/or kV according to patient size and/or use of iterative reconstruction technique. FINDINGS: There is no acute intracranial hemorrhage or mass effect. Ventricular system is within nor mal limits. There is adequate king-white matter differentiation. There is no skull fracture. The visu alized paranasal sinuses and mastoid air cells are within normal limits. IMPRESSION: No acute intracranial abnormalities. Electronically signed by: Hal Valenzuela MD 02/05/2024 11:26 PM CDT RP Due to temporary technical issues with the PACS/Fluency reporting system, reports are being signed by the in house radiologist without review as a courtesy to ensure prompt reporting. The interpreting r adiologist is fully responsible for the content of the report.
--- NOTE | 2024-02-07 16:08 | EKG ---
Test Date: 2024-02-05 Test Time: 21:56:31 Treasury Analyst: RADHA MEASUREMENT RESULTS: Intervals: Rate: 99 HI: 128 QRSD: 86 QT: 364 QTc: 467 [facility]: P: 78 HI: 128 QRS: 56 T: 66 INTERPRETIVE STATEMENTS: Normal sinus rhythm Septal infarct, age undetermined Abnormal ECG No previous ECG available for comparison Electronically Signed On 02-07-24 16:06:58 CDT by Chase Roth
== END 2024-02-06 01:37 | disposition home or self-care (01) ==
LOC: ER 21:40
DX: G44.89 Other headache syndrome (principal); Z11.52 Encounter for screening for COVID-19
CPT/HCPCS: 96361; 93005; 85025; 80048; 36415; 84703; 80076; 70450; 96375; 96374; 99285; 87811; J2765; J1200; J7030

== ENCOUNTER 2024-03-22 07:34 | Emergency (ER) | payer BC ==
[2024-03-22] MEDS ORDERED: ASPIRIN 81 MG CHEWABLE TABLET ONE (08:03)
[2024-03-22] MEDS ORDERED: NA CHLORIDE 0.9% 1,000 ML ONE (08:03)
[2024-03-22 08:13] LABS: Absolute Basophils 0.1 K/uL (0-0.5); Absolute Eosinophils 0.1 K/uL (0-0.5); Absolute Lymphocytes (CBC) 3.7 K/uL (0.7-4.9); Absolute Monocytes 1.1 K/uL (0.1-1.3); Absolute Neutrophil 7.7 K/uL (1.8-8.0); Eosinophils % 0.9 % (0-4.4); Hematocrit 36.6 % (36.0-45.0); Hemoglobin 11.9 g/dL (12.0-15.0); MCH 27.9 pg (27.0-35.0); MCHC 32.7 g/dL (32.0-36.0); MCV 85.5 fL (80-100); MPV 8.3 fL (7.6-11.3); Monocytes % 8.3 % (3.3-12.3); Neutrophils % 60.8 % (41.7-73.7); Platelets 145 thou/uL (152-406); RBC Red Blood Cell Count 4.28 M/uL (3.86-4.86); Red Cell Distribution Width 15.7 % (12.1-15.2)
[2024-03-22 08:16] LABS: D-Dimer 0.343 FEUug/mL (0-0.500); Protime INR 1.26
[2024-03-22 08:22] LABS: Specific Gravity 1.015 (1.005-1.030)
[2024-03-22 08:23] LABS: Specific Gravity 1.015 (1.005-1.030); Urine Bacteria <20 /HPF (<20); Urine Bilirubin NEGATIVE (Negative); Urine Blood 2+ (Negative); Urine Clarity Extremely Turbid (Clear); Urine Color Light-Yellow (Yellow); Urine Culture Reflex Order NOT NEEDED; Urine Glucose NEGATIVE (Negative); Urine Ketones NEGATIVE (Negative); Urine Microscopic Reflex YN ORDER UMIC; Urine Mucus Slight /HPF (None Seen); Urine Nitrite NEGATIVE (Negative); Urine Protein NEGATIVE (Negative); Urine Urobilinogen Normal (Normal)
[2024-03-22 08:30] LABS: SARS-CoV-2 Antigen CONTROL BLUE LINE VIS/BG OK; SARS-CoV-2 Antigen Rapid Res Negative (Negative)
[2024-03-22 08:33] LABS: ALT/SGPT 23 U/L (13-56); AST/SGOT 15 U/L (15-37); Albumin 2.7 g/dL (3.4-5.0); Albumin/Globulin Ratio 0.6 (1.1-1.8); Alkaline Phosphatase 76 U/L (45-117); Anion Gap 7.2 mEq/L (5.0-15.0); BUN Blood Urea Nitrogen 14 mg/dL (7-18); Bicarbonate 24 mEq/L (21-32); Bilirubin Direct 0.3 mg/dL (0-0.2); Bilirubin Indirect, Calculated 0.3 mg/dL (0.2-0.8); Bilirubin Total 0.6 mg/dL (0.2-1.0); Globulin 4.4 g/dL (2.3-3.5); Glomerular Filtration Rate 90 ml/min (=/>90); Glucose Level 146 mg/dL (74-106); Lipase 69 U/L (13-75); Magnesium 1.7 mg/dL (1.6-2.4); NT PRO-BNP 63 pg/mL (<125); Potassium 3.2 mEq/L (3.5-5.1); Protein, Total 7.1 g/dL (6.4-8.2); Sodium Level 139 mEq/L (136-145)
[2024-03-22 08:34] LABS: Troponin High Sensitivity < 3.0 pg/mL (<58.9)
--- NOTE | 2024-03-22 08:40 | RAD REPORT ---
EXAM DESCRIPTION: RAD - Chest Pa And Lat (2 Views) - 03/22/2024 8:33 am CLINICAL HISTORY: Chest pain;Cough COMPARISON: No comparisons FINDINGS: Lines: None. Lungs: No evidence of edema or pneumonia. Pleural: No significant pleural effusions or pneumothorax. Cardiac: The heart size is within normal limits. Mediastinum: Within normal limits. Bones: No acute fractures. Other: None IMPRESSION: No acute cardiopulmonary disease.
[2024-03-22] MEDS ORDERED: levoFLOXacin 750 MG TAB ONE (08:49)
[2024-03-22] MEDS ORDERED: POTASSIUM 25 MEQ EFFERV TAB ONE (08:50)
--- NOTE | 2024-03-22 08:50 | EDPHYS ---
Physician Documentation [facility] [place], [place] Name: Gricel Tillman Age: 34 yrs Sex: Female : 1990 Arrival Date: 03/22/2024 Time: 07:34 Bed 20 Private MD: ANAYELI Physician Ryan Farmer HPI: 03/22 08:41 This 34 yrs old Female presents to ER via Ambulatory with complaints of Chest kosta Pain, Cough. 08:41 The patient or guardian reports chest pain that is located primarily in the chest kosta diffusely. The pain does not radiate. Associated signs and symptoms: Pertinent positives: cough. The chest pain is described as sharp. Duration: The patient or guardian reports multiple episodes, that are intermittent. Modifying factors: The symptoms are alleviated by remaining still, the symptoms are aggravated by cough. Severity of pain: At its worst the pain was moderate in the emergency department the pain has improved. The patient has experienced similar episodes in the past, a few times. Historical: - Allergies: 07:45 Pertussis Vaccines; iw - Home Meds: 07:47 Buspirone Oral [Active]; Prednisone Oral [Active]; budesonide oral [Active]; Ursodiol iw Oral [Active]; Xifaxan oral [Active]; Carafate Oral [Active]; levothyroxine oral [Active]; mycophenolate sodium oral [Active]; sertraline oral [Active]; - PMHx: 07:45 Anxiety; depressive disorder; Hypothyroidism; hashimotos disease; autoimmune hepatitis; iw - Immunization history:: Adult Immunizations Client reports having NOT received the Covid vaccine. Flu vaccine is up to date. - Social history:: Smoking status: Patient/guardian denies using tobacco, but has a distant history of tobacco abuse. - Family history:: not pertinent. ROS: 08:41 Constitutional: Negative for fever, chills, and weight loss, Eyes: Negative for injury, kosta pain, redness, and discharge, ENT: Negative for injury, pain, and discharge, Neck: Negative for injury, pain, and swelling, Cardiovascular: Negative for chest pain, palpitations, and edema, Respiratory: Negative for shortness of breath, cough, wheezing, and pleuritic chest pain, Abdomen/GI: Negative for abdominal pain, nausea, vomiting, diarrhea, and constipation, Back: Negative for injury and pain, : Negative for injury, bleeding, discharge, and swelling, MS/Extremity: Negative for injury and deformity, Skin: Negative for injury, rash, and discoloration, Neuro: Negative for headache, weakness, numbness, tingling, and seizure, Psych: Negative for depression, anxiety, suicide ideation, homicidal ideation, and hallucinations, Allergy/Immunology: Negative for hives, rash, and allergies, Endocrine: Negative for neck swelling, polydipsia, polyuria, polyphagia, and marked weight changes, Hematologic/Lymphatic: Negative for swollen nodes, abnormal bleeding, and unusual bruising, 08:41 MS/extremity: Negative for acute changes, Exam: 08:41 Constitutional: This is a well developed, well nourished patient who is awake, alert, kosta and in no acute distress. Head/Face: Normocephalic, atraumatic. Eyes: Pupils equal round and reactive to light, extra-ocular motions intact. Lids and lashes normal. Conjunctiva and sclera are non-icteric and not injected. Cornea within normal limits. Periorbital areas with no swelling, redness, or edema. ENT: Nares patent. No nasal discharge, no septal abnormalities noted. Tympanic membranes are normal and external auditory canals are clear. Oropharynx with no redness, swelling, or masses, exudates, or evidence of obstruction, uvula midline. Mucous membranes moist. Neck: Trachea midline, no thyromegaly or masses palpated, and no cervical lymphadenopathy. Supple, full range of motion without nuchal rigidity, or vertebral point tenderness. No Meningismus. Chest/axilla: Normal chest wall appearance and motion. Nontender with no deformity. No lesions are appreciated. Cardiovascular: Regular rate and rhythm with a normal S1 and S2. No gallops, murmurs, or rubs. Normal PMI, no JVD. No pulse deficits. Respiratory: Lungs have equal breath sounds bilaterally, clear to auscultation and percussion. No rales, rhonchi or wheezes noted. No increased work of breathing, no retractions or nasal flaring. Abdomen/GI: Soft, non-tender, with normal bowel sounds. No distension or tympany. No guarding or rebound. No evidence of tenderness throughout. Back: No spinal tenderness. No costovertebral tenderness. Full range of motion. Skin: Warm, dry with normal turgor. Normal color with no rashes, no lesions, and no evidence of cellulitis. MS/ Extremity: Pulses equal, no cyanosis. Neurovascular intact. Full, normal range of motion. Neuro: Awake and alert, GCS 15, oriented to person, place, time, and situation. Cranial nerves II-XII grossly intact. Motor strength 5/5 in all extremities. Sensory grossly intact. Cerebellar exam normal. Normal gait. Psych: Awake, alert, with orientation to person, place and time. Behavior, mood, and affect are within normal limits. 08:41 ECG was reviewed by the Attending Physician. 08:41 Musculoskeletal/extremity: ROM: no acute changes, intact in all extremities, full active range of motion, full passive range of motion, Circulation is intact in all extremities. Sensation intact. Compartment Syndrome exam of affected extremity: is normal. DVT Exam: No signs of deep vein thrombosis. no pain, no swelling, no tenderness, negative Homans' sign noted on exam, no appreciated bluish discoloration, no erythema, no increased warmth, Vital Signs: 07:44 BP 141 / 89; Pulse 88; Resp 18; Temp 98.2; Pulse Ox 98% on R/A; Weight 104.33 kg; iw Height 5 ft. 7 in. ; Pain 7/10; 07:44 Body Mass Index 36.02 (104.33 kg, 170.18 cm) iw 07:44 Pain Scale: Adult iw MDM: 07:44 Patient medically screened. kosta 08:45 Differential diagnosis: abnormal EKG, acute myocardial infarction, acute pericarditis, kosta anxiety, chest wall pain, Cholelithiasis pancreatitis, peptic ulcer disease, pleurisy, pulmonary embolus, stable angina, thoracic aortic disection, unstable angina. HEART Score: History: Slightly Suspicious (0), ECG: Normal (0), Age: < or = 45 years (0), Risk Factors: 1 or 2 risk factors (1), [+ Family HX] [Obesity] Troponin: < or = 1 x Normal Limit (0). Data reviewed: vital signs, nurses notes, lab test result(s), EKG, radiologic studies, plain films. 03/22 07:47 Order name: Basic Metabolic Panel; Complete Time: 08:39 [facility] 03/22 07:47 Order name: CBC with Diff; Complete Time: 08:39 [facility] 03/22 07:47 Order name: D-Dimer; Complete Time: 08:39 [facility] 03/22 07:47 Order name: LFT's; Complete Time: 08:39 [facility] 03/22 07:47 Order name: Magnesium; Complete Time: 08:39 [facility] 03/22 07:47 Order name: NT PRO-BNP; Complete Time: 08:39 [facility] 03/22 07:47 Order name: PT-INR; Complete Time: 08:39 [facility] 03/22 07:47 Order name: Troponin HS; Complete Time: 08:39 [facility] 03/22 07:47 Order name: Lipase; Complete Time: 08:39 [facility] 03/22 07:47 Order name: Urinalysis w/ reflexes; Complete Time: 08:39 [facility] 03/22 07:47 Order name: PREGU; Complete Time: 08:39 [facility] 03/22 07:47 Order name: SARS RAPID; Complete Time: 08:39 [facility] 03/22 08:02 Order name: Flu; Complete Time: 08:46 [facility] 03/22 08:02 Order name: Strep [facility] 03/22 08:29 Order name: Throat Culture [facility]MA 03/22 08:48 Order name: Urine Culture [facility] 03/22 07:47 Order name: Chest Pa And Lat (2 Views) XRAY; Complete Time: 08:46 [facility] 03/22 07:47 Order name: Cardiac monitoring; Complete Time: 08:33 [facility] 03/22 07:47 Order name: EKG - Nurse/Tech; Complete Time: 08:33 [facility] 03/22 07:47 Order name: IV Saline Lock; Complete Time: 08:10 [facility] 03/22 07:47 Order name: Labs collected and sent; Complete Time: 08:10 [facility] 03/22 07:47 Order name: O2 Per Protocol; Complete Time: 08:10 [facility] 03/22 07:47 Order name: O2 Sat Monitoring; Complete Time: 08:10 [facility] EC:41 Rate is 86 beats/min. Rhythm is regular. QRS Marshall is Normal. AR interval is normal. QRS kosta interval is normal. QT interval is normal. No Q waves. T waves are Normal. No ST changes noted. Clinical impression: NSR w/ Non-specific ST/T Changes and No evidence of ischemia. Interpreted by me. Reviewed by me. Administered Medications: 08:02 CANCELLED (Duplicate Order): [id number] mg PO once kosta 08:10 Drug: Aspirin PO Chewable Tablet 324 mg PO once; 81 mg tablets x 4 Route: PO; db 09:10 Follow up: Response: No adverse reaction iw 08: Drug: NS 0.9% IV 1000 ml IV at 1 bolus Per protocol; 1000 mL bolus Route: IV; Rate: 1 db bolus; Site: right antecubital; 09:20 Follow up: IV Status: Completed infusion iw 09:02 Drug: Potassium PO Effervescent Tablet 50 mEq PO once; dissolve in 4 ounces of water or iw juice Route: PO; 09:10 Follow up: Response: No adverse reaction; Medication administered at discharge. iw 09: Drug: LevOfloxacin PO 750 mg PO once Route: PO; iw 09:12 Follow up: Response: Medication administered at discharge. iw Disposition Summary: 03/22/24 08:50 Discharge Ordered Notes: Location: Home kosta Problem: new kosta Symptoms: have improved kosta Condition: Stable kosta Diagnosis - Acute upper respiratory infection, unspecified kosta - UTI/ Urinary tract infection, site not specified kosta - Elevated white blood cell count kosta - Cough kosta - Hypokalemia kosta Followup: kosta - With: Private Physician - When: 2 - 3 days - Reason: Recheck today's complaints, Continuance of care, Re-evaluation by your physician Discharge Instructions: - Discharge Summary Sheet kosta - Potassium Content of Foods kosta - Cool Mist Vaporizer kosta - Urinary Tract Infection, Adult, [id number] kosta - Upper Respiratory Infection, Adult, [id number] kosta - Aspirin and Your Heart kosta - Cough, Adult kosta - Hypokalemia kosta Forms: - Medication Reconciliation Form kosta - Antibiotic Education kosta - Prescription Opioid Use kosta - Patient Portal Instructions kosta - Leadership Thank You Letter [facility] Prescriptions: - Tessalon Perles 100 mg Oral capsule - take 2 capsule ORAL route every 8 hours As needed; 30 capsule; Refills: 0, kosta Product Selection Permitted - Guaifenesin AC 10-100 mg/5 mL Oral liquid - take 7.5 milliliter ORAL route every 6 hours As needed; 180 milliliter; kosta Refills: 0, Product Selection Permitted - levofloxacin 750 mg Oral tablet - take 1 tablet ORAL route once daily; 7 tablet; Refills: 0, Product Selection kosta Permitted Signatures: Dispatcher [employer] Ryan Painting MD MD cha Williams, Irene, RN RN iw Ele Stearns, RN RN db Corrections: (The following items were deleted from the chart) 07:47 07:47 Chest Pa And Lat (2 Views)+RAD.RAD.BRZ ordered. EDMS EDMS 08:02 07:47 Fluconazole PO 100 mg PO once ordered. kosta kosta 08:03 08:03 Influenza Screen (A \T\ B)+BA.LAB.BRZ ordered. EDMS EDMS 08:03 08:03 Group A Streptococcus Rapid Sc+BA.LAB.BRZ ordered. EDMS EDMS 08:48 08:48 Urine Culture+BA.LAB.BRZ ordered. EDMS EDMS
--- NOTE | 2024-03-22 08:50 | ER ---
Nurse's Notes [facility] [place] Name: Gricel Tillman Age: 34 yrs Sex: Female : 1990 Arrival Date: 03/22/2024 Time: 07:34 Bed 20 Private MD: Diagnosis: Acute upper respiratory infection, unspecified;UTI/ Urinary tract infection, site not specified;Elevated white blood cell count;Cough;Hypokalemia Presentation: 03/22 07:44 Chief complaint: Patient states: tickle in her throat, cough started yesterday , chest iw pain with cough started today, no fever, coughing up yellow mucous. Coronavirus screen: Client presents with at least one sign or symptom that may indicate coronavirus-19. Ebola Screen: No symptoms or risks identified at this time. Initial Sepsis Screen: Does the patient meet any 2 criteria? No. Patient's initial sepsis screen is negative. Does the patient have a suspected source of infection? No. Patient's initial sepsis screen is negative. Risk Assessment: Do you want to hurt yourself or someone else? Patient reports no desire to harm self or others. Onset of symptoms was March 21, 2024. 07:44 Method Of Arrival: Ambulatory iw 07:44 Acuity: ROYA 3 iw Historical: - Allergies: 07:45 Pertussis Vaccines; iw - Home Meds: 07:47 Buspirone Oral [Active]; Prednisone Oral [Active]; budesonide oral [Active]; Ursodiol iw Oral [Active]; Xifaxan oral [Active]; Carafate Oral [Active]; levothyroxine oral [Active]; mycophenolate sodium oral [Active]; sertraline oral [Active]; - PMHx: 07:45 Anxiety; depressive disorder; Hypothyroidism; hashimotos disease; autoimmune hepatitis; iw - Immunization history:: Adult Immunizations Client reports having NOT received the Covid vaccine. Flu vaccine is up to date. - Social history:: Smoking status: Patient/guardian denies using tobacco, but has a distant history of tobacco abuse. - Family history:: not pertinent. Screenin:35 [facility] ED Fall Risk Assessment (Adult) History of falling in the last 3 months, iw including since admission No falls in past 3 months (0 pts) Confusion or Disorientation No (0 pts) Intoxicated or Sedated No (0 pts) Impaired Gait No (0 pts) Mobility Assist Device Used No (0 pt) Altered Elimination No (0 pt) Score/Fall Risk Level 0 - 2 = Low Risk Oriented to surroundings, Maintained a safe environment. Abuse screen: Denies injuries from another. Nutritional screening: No deficits noted. Tuberculosis screening: No symptoms or risk factors identified. Assessment: 07:50 General: Appears in no apparent distress. Behavior is calm, cooperative. Pain: iw Complains of pain in chest Pain does not radiate. Pain began this morning. Neuro: Level of Consciousness is awake, alert, obeys commands, Oriented to person, place, time, situation, Moves all extremities. Full function. Cardiovascular: Reports chest pain. Respiratory: Reports shortness of breath cough that is productive, pain with cough pain with respiration Airway is patent Respiratory effort is even, unlabored, Respiratory pattern is regular, symmetrical. GI: Abdomen is non-distended. Derm: Skin is intact, is healthy with good turgor. Musculoskeletal: Range of motion: intact in all extremities. Vital Signs: 07:44 BP 141 / 89; Pulse 88; Resp 18; Temp 98.2; Pulse Ox 98% on R/A; Weight 104.33 kg; iw Height 5 ft. 7 in. ; Pain 7/10; 07:44 Body Mass Index 36.02 (104.33 kg, 170.18 cm) iw 07:44 Pain Scale: Adult iw ED Course: 07:37 Patient arrived in ED. mg5 07:38 Ryan Farmer MD is Attending Physician. kosta 07:45 Triage completed. iw 07:47 Arm band placed on. iw 08:00 Initial lab(s) drawn, by me, sent to lab. Inserted saline lock: 20 gauge in right db antecubital area, using aseptic technique. Blood collected. Flushed with 10 mL NS. 08:09 Angeles Bob, RN is Primary Nurse. iw 08:10 Urine collected: clean catch specimen, clear. db 08:34 Chest Pa And Lat (2 Views) XRAY In Process Unspecified. EDMS 08:35 Patient has correct armband on for positive identification. Provided Education on: CXR. iw Client placed on continuous cardiac and pulse oximetry monitoring. NIBP monitoring applied. litigation services manager on. 09:14 No provider procedures requiring assistance completed. IV discontinued, intact, iw bleeding controlled, No redness/swelling at site. Pressure dressing applied. Patient maintains SpO2 saturation greater than 95% on room air. Administered Medications: 08:02 CANCELLED (Duplicate Order): [id number] mg PO once [facility] 08:10 Drug: Aspirin PO Chewable Tablet 324 mg PO once; 81 mg tablets x 4 Route: PO; db 09:10 Follow up: Response: No adverse reaction iw 08:10 Drug: NS 0.9% IV 1000 ml IV at 1 bolus Per protocol; 1000 mL bolus Route: IV; Rate: 1 db bolus; Site: right antecubital; 09:20 Follow up: IV Status: Completed infusion iw 09:02 Drug: Potassium PO Effervescent Tablet 50 mEq PO once; dissolve in 4 ounces of water or iw juice Route: PO; 09:10 Follow up: Response: No adverse reaction; Medication administered at discharge. iw 09:02 Drug: LevOfloxacin PO 750 mg PO once Route: PO; iw 09:12 Follow up: Response: Medication administered at discharge. iw Medication: :14 VIS not applicable for this client. Outcome: 08:50 Discharge ordered by . [facility] 09:14 Discharged to home ambulatory, iw 09:14 Condition: good 09:14 Discharge instructions given to patient, Instructed on discharge instructions, follow up and referral plans. Demonstrated understanding of instructions, follow-up care, medications, Prescriptions given X 3, 09:14 Patient left the ED. Signatures: Dispatcher [employer] Ryan Painting MD MD cha Williams, Irene, RN RN Ele Pina RN RN db Gardner, [place] mg5 Corrections: (The following items were deleted from the chart) 12:56 10:00 Response: No adverse reaction [facility]
[2024-03-22 09:29] VITALS: BP 141/89; TEMP 98.2; O2SAT 98
== END 2024-03-22 09:14 | disposition home or self-care (01) ==
LOC: ER 07:34
DX: J06.9 Acute upper respiratory infection, unspecified (principal); N39.0 Urinary tract infection, site not specified; E87.6 Hypokalemia; D72.829 Elevated white blood cell count, unspecified; Z11.52 Encounter for screening for COVID-19
CPT/HCPCS: 87070; 87088; 85025; 81001; 87086; 80048; 36415; 83735; 81025; 85610; 85379; 80076; 87081; 84484; 83690; 83880; 87804 ×2; 71046; 96360; 99285; 87811; J7030; 93005

== ENCOUNTER 2024-06-23 16:48 | Inpatient (IN) | payer BC ==
[2024-06-23] MEDS ORDERED: NA CHLORIDE 0.9% 1,000 ML ONE (17:55)
[2024-06-23] MEDS ORDERED: FAMOTIDINE 20 MG/2 ML VIAL IV ONE (17:55)
[2024-06-23] MEDS ORDERED: ONDANSETRON 4 MG/2 ML VIAL ONE (17:55)
[2024-06-23 18:20] LABS: Absolute Basophils 0.1 K/uL (0-0.5); Absolute Lymphocytes (CBC) 2.1 K/uL (0.7-4.9); Absolute Monocytes 0.8 K/uL (0.1-1.3); Absolute Neutrophil 10.9 K/uL (1.8-8.0); Basophils % 0.4 % (0-1.3); Eosinophils % 0.1 % (0-4.4); Hematocrit 36.7 % (36.0-45.0); Hemoglobin 11.7 g/dL (12.0-15.0); Lymphocytes % 15.1 % (15.3-44.8); MCH 24.5 pg (27.0-35.0); MCHC 31.8 g/dL (32.0-36.0); MCV 77.1 fL (80-100); MPV 8.1 fL (7.6-11.3); Monocytes % 5.7 % (3.3-12.3); Neutrophils % 78.7 % (41.7-73.7); Nucleated Red Blood Cells % 0.1 % (0-0); Platelets 192 thou/uL (152-406); RBC Red Blood Cell Count 4.76 M/uL (3.86-4.86); Red Cell Distribution Width 16.6 % (12.1-15.2)
[2024-06-23 18:24] LABS: Specific Gravity 1.011 (1.005-1.030)
[2024-06-23 18:25] LABS: Specific Gravity 1.011 (1.005-1.030); Sqamous Epithelial <5 /HPF (None Seen); Urine Bacteria <20 /HPF (<20); Urine Bilirubin NEGATIVE (Negative); Urine Blood Negative (Negative); Urine Clarity Clear (Clear); Urine Color Light-Yellow (Yellow); Urine Culture Reflex Order NOT NEEDED; Urine Glucose NEGATIVE (Negative); Urine Ketones NEGATIVE (Negative); Urine Microscopic Reflex YN ORDER UMIC; Urine Mucus Slight /HPF (None Seen); Urine Nitrite NEGATIVE (Negative); Urine Protein NEGATIVE (Negative); Urine Urobilinogen Normal (Normal); Urine WBC None Seen /HPF (<5)
[2024-06-23 18:37] LABS: Albumin 3.1 g/dL (3.4-5.0); Albumin/Globulin Ratio 0.7 (1.1-1.8); Anion Gap 9.8 mEq/L (5.0-15.0); Bilirubin Total 0.8 mg/dL (0.2-1.0); Globulin 4.6 g/dL (2.3-3.5); Potassium 3.8 mEq/L (3.5-5.1); Protein, Total 7.7 g/dL (6.4-8.2)
[2024-06-23] MEDS ORDERED: MORPHINE 4 MG/ML SYR ONE (18:41)
--- NOTE | 2024-06-23 19:51 | RAD REPORT ---
EXAMINATION: ONE VIEW CHEST XR CLINICAL INDICATION: upper abdomen pain TECHNIQUE: Frontal chest projection is submitted. Examination is limited by patient positioning and t echnique. COMPARISON: 03/22/2024 FINDINGS: The lungs are well inflated and clear. The heart is normal in size. No displaced fractures identified . IMPRESSION: No acute intrathoracic abnormalities.
--- NOTE | 2024-06-23 19:56 | RAD REPORT ---
EXAMINATION: CT ABDOMEN AND PELVIS WITH CONTRAST CLINICAL INDICATION: upper abdomen pain TECHNIQUE: CT abdomen and pelvis was performed, after the administration of IV contrast, as per [facility] protocol. Axial, sagittal and coronal reconstructions were obtained. One or more of the following dose reduction techniques were used: Automated exposure control, adjustment of the mA and k V according to patient size, and iterative reconstruction. Unless otherwise specified, incidental findings do not require dedicated imaging follow-up. COMPARISON: No prior exam. FINDINGS: LOWER CHEST: The visualized lung bases are clear. LIVER: There is a moderate cirrhotic liver pattern. Cholelithiasis. SPLEEN: Spleen is moderately enlarged. PANCREAS: No mass, ductal dilation, or sandy-pancreatic fluid. ADRENALS: Normal; no mass. KIDNEYS: Normal size and contour. No hydronephrosis. GASTROINTESTINAL TRACT: No evidence of free air, significant intra-abdominal free fluid, bowel obstru ction or abscess. APPENDIX: Normal appendix. LYMPH NODES: No lymphadenopathy. MUSCULOSKELETAL: Mild posterior disc protrusion lower lumbar levels. ADDITIONAL FINDINGS: None. IMPRESSION: Moderate liver cirrhosis. Moderate splenomegaly. Cholelithiasis.
--- NOTE | 2024-06-23 20:25 | RAD REPORT ---
EXAM: Right upper quadrant ultrasound. CLINICAL HISTORY: ABD PAIN COMPARISON: None. FINDINGS: Gallbladder: Multiple shadowing stones. Bile ducts: No intrahepatic or extrahepatic biliary dilatation. Common bile duct measures 7 mm. Limited imaging of the liver shows no concerning finding. IMPRESSION: Cholelithiasis. Common bile duct mildly prominent measuring 7 mm. Follow-up MRCP would be recommended..
--- NOTE | 2024-06-23 20:47 | EDPHYS ---
Physician Documentation [facility] Name: Gricel Tillman Age: 34 yrs Sex: Female : 1990 Arrival Date: 06/23/2024 Time: 16:48 Bed 6 Private MD: ED Physician Martin Nickerson HPI: 06/23 17:55 This 34 yrs old Female presents to ER via Ambulatory with complaints of Abdominal Pain. cp 17:55 The patient presents with abdominal pain in the epigastric area, in the right upper cp quadrant. Onset: The symptoms/episode began/occurred this morning. The symptoms radiate to right back, the right flank. Associated signs and symptoms: Pertinent positives: diarrhea, nausea, Pertinent negatives: dysuria, fever, vomiting. The symptoms are described as waxing/waning. Historical: - Allergies: 17:13 Pertussis Vaccines; aa5 - PMHx: 17:13 Anxiety; autoimmune hepatitis; depressive disorder; hashimotos disease; Hypothyroidism; aa5 Gastric ulcer (Unknown); - PSHx: 17:13 tubal-2011; aa5 - Immunization history:: Adult Immunizations unknown. - Infectious Disease History:: Denies. - Social history:: Smoking status: Patient denies any tobacco usage or history of. ROS: 18:00 Constitutional: Negative for body aches, chills, fever, poor PO intake, cp 18:00 Eyes: Negative for injury, pain, redness, and discharge, cp 18:00 ENT: Negative for sore throat, 18:00 Cardiovascular: Negative for chest pain, palpitations, 18:00 Respiratory: Negative for cough, shortness of breath, wheezing, 18:00 Abdomen/GI: Positive for abdominal pain, nausea, of the epigastric area and right upper quadrant, Negative for vomiting, diarrhea, constipation, 18:00 : Negative for urinary symptoms, 18:00 All other systems are negative, Exam: 18:05 Constitutional: The patient appears in no acute distress, alert, awake, non-toxic, well cp developed, well nourished, obese, uncomfortable, 18:05 Head/Face: Normocephalic, atraumatic. cp 18:05 Eyes: Periorbital structures: appear normal, Conjunctiva: normal, no exudate, no injection, Sclera: no appreciated abnormality, Lids and lashes: appear normal, bilaterally, 18:05 ENT: External ear(s): are unremarkable, Nose: is normal, Mouth: Lips: moist, Oral mucosa: pink and intact, moist, Posterior pharynx: Airway: no evidence of obstruction, patent, 18:05 Chest/axilla: Inspection: normal, 18:05 Cardiovascular: Rate: normal, Rhythm: regular, 18:05 Respiratory: the patient does not display signs of respiratory distress, Respirations: normal, no use of accessory muscles, no retractions, labored breathing, is not present, Breath sounds: are clear throughout, no decreased breath sounds, no stridor, no wheezing, 18:05 Abdomen/GI: Inspection: abdomen appears normal, Bowel sounds: active, all quadrants, Palpation: soft, in all quadrants, moderate abdominal tenderness, in the epigastric area and right upper quadrant, rebound tenderness, is not appreciated, involuntary guarding, is not appreciated, 18:05 Back: CVA tenderness, is absent, Vital Signs: 17:12 BP 138 / 87; Pulse 85; Resp 16 S; Temp 98.8(O); Pulse Ox 99% on R/A; Weight 113.4 kg aa5 (R); Height 5 ft. 7 in. (R); 19:01 BP 136 / 82; Pulse 72; Resp 16; Pulse Ox 99% on R/A; jb4 22:42 BP 127 / 83; Pulse 72; Resp 16; Pulse Ox 99% on R/A; jb4 23:04 BP 127 / 83; Pulse 69; Resp 18; Pulse Ox 96% on R/A; br2 17:12 Body Mass Index 39.16 (113.40 kg, 170.18 cm) aa5 MDM: 17:16 Medical Screening Exam initiated cp 18:00 Differential diagnosis: appendicitis, bowel obstruction, cholecystitis, Cholelithiasis, cp gastroesophageal reflux disease, GI Bleed, non-specific abd pain, pancreatitis, Peptic Ulcer Disease, Perf. Duodenal Ulcer, Perf. Gastric Ulcer. 20:45 Data reviewed: vital signs, nurses notes. Consideration of Admission/Observation kb Patient was admitted/placed on observation. Escalation of care including admission/observation considered. Management of patient was discussed with the following: Hospitalist: Dr Roldan accepts pt for admission. Gasateria Attendant: Yanet accepts pt for consult. Wants NPO after midnight, repeat LFTs in AM and zosyn. . Counseling: I had a detailed discussion with the patient and/or guardian regarding the historical points, exam findings, and any diagnostic results supporting the discharge/admit diagnosis, lab results, radiology results, the need for further work-up and treatment in the hospital. 06/23 17:50 Order name: CBC with Diff; Complete Time: 18:33 cp 06/23 19:24 Interpretation: Normal except: WBC 13.90; HGB 11.7; MCV 77.1; MCH 24.5; MCHC 31.8; RDW cp 16.6; JOLEEN% 78.7; LYM% 15.1; NEUT A 10.9. 06/23 17:50 Order name: CMP; Complete Time: 19:23 cp 06/23 19:23 Interpretation: Normal except: GLUC 111; ALB 3.1; GLOB 4.6; A/G 0.7. cp 06/23 17:50 Order name: Lipase; Complete Time: 19:23 cp 06/23 17:50 Order name: Test, Urine; Complete Time: 18:33 cp 06/23 17:50 Order name: Urinalysis w/ reflexes; Complete Time: 18:33 cp 06/23 20:43 Order name: PT-INR; Complete Time: 22:05 kb 06/23 20:43 Order name: Ptt, Activated; Complete Time: 22:05 kb 06/23 21:19 Order name: Urinalysis w/ reflexes; Complete Time: 11:54 EDMS 06/23 21:19 Order name: CBC with Automated Diff EDWY 06/23 21:19 Order name: CBC with Automated Diff; Complete Time: 11:54 EDMS 06/23 21:19 Order name: Comprehensive Metabolic Panel EDW[facility] 06/23 21:19 Order name: Comprehensive Metabolic Panel; Complete Time: 11:54 EDMS 06/23 18:35 Order name: CT Abd/Pelvis - IV Contrast Only; Complete Time: 19:59 cp 06/23 18:35 Order name: XRAY Chest (1 view); Complete Time: 19:59 cp 06/23 20:01 Order name: US Abdomen Limited; Complete Time: 20:28 kb 06/23 21:19 Order name: CONS Physician Consult EDW[facility] 06/23 17:50 Order name: IV Saline Lock; Complete Time: 18:13 cp 06/23 17:50 Order name: Labs collected and sent; Complete Time: 18:13 cp Administered Medications: 18:13 Drug: Famotidine IVP 20 mg IVP once; dilute with 10 mL 0.9% NaCl; give over 2 minutes jb4 Route: IVP; Site: right antecubital; 18:40 Follow up: Response: No adverse reaction rs5 18:13 Drug: Ondansetron IVP 4 mg IVP once; over 2 minutes Route: IVP; Site: right antecubital;jb4 18:30 Follow up: Response: No adverse reaction rs5 18:13 Drug: NS 0.9% IV 1000 ml IV at 1 bolus Per protocol; to be given as a bolus over 60 jb4 minutes Route: IV; Rate: 1 bolus; Site: right antecubital; 19:21 Follow up: Response: No adverse reaction; IV Status: Completed infusion; IV Intake: rs5 1000ml 18:35 Drug: morphine IVP or IV 4 mg IVP once over 4 mins Route: IVP; Infused Over: 4 mins; rs5 Site: right antecubital; 18:50 Follow up: Response: No adverse reaction; Pain is decreased rs5 21:50 Drug: Piperacillin-Tazobactam IVPB 3.375 grams IVPB once over 60 mins; (mix in NS 100 br2 mL) Route: IVPB; Infused Over: 60 mins; Site: right antecubital; 22:50 Follow up: Response: No adverse reaction; IV Status: Completed infusion; IV Intake: br2 100ml 23:45 Drug: Ketorolac IVP 15 mg IVP once Route: IVP; Site: right antecubital; br2 Disposition Summary: 06/23/24 20:47 Hospitalization Ordered Notes: Hospitalization Status: Observation kb Provider: Jabier Holt Location: Telemetry/[facility] (observation) kb Condition: Stable kb Problem: new kb Symptoms: are unchanged kb Bed/Room Type: Standard Room Assignment: 215(06/23/24 22:17) vk Diagnosis - Other cholelithiasis without obstruction - with dilated CBD kb Forms: - Medication Reconciliation Form kb - SBAR form kb - Leadership Thank You Letter kb Addendum: 06/27/2024 20:23 I was immediately available for consultation during this patient's visit. I did not e c2 personally see the patient or discuss the patient with the KELLEE. . Signatures: Dispatcher [employer] EDMS Sparkle Friedman, WRAPPER SELECTOR-C WRAPPER SELECTOR-Ckb Nayeli De Jesus, RN RN aa5 Ryan Linn PA PA cp Bryson, James, RN RN jb4 Walker Mahan RN RN rs5 Martin Nickerson MD MD ec2 Balbina Ashby Belinda RN RN br2 Corrections: (The following items were deleted from the chart) 06/23 20:10 20:01 Abdomen Limited+[id number].RAD.BRZ ordered. EDMS EDMS 22:17 20:47 kb sparkle
--- NOTE | 2024-06-23 20:47 | ER ---
Nurse's Notes [facility] Name: Gricel Tillman Age: 34 yrs Sex: Female : 1990 Arrival Date: 06/23/2024 Time: 16:48 Bed 6 Private MD: Diagnosis: Other cholelithiasis without obstruction-with dilated CBD Presentation: 06/23 17:12 Chief complaint: Patient states: upper abdominal pain and nausea that began today, aa5 reports diarrhea this morning. Pt also reports selvin leg swelling that she noticed 2-3 days ago. Coronavirus screen: At this time, the client does not indicate any symptoms associated with coronavirus-19. Ebola Screen: Patient denies travel to an Ebola-affected area in the 21 days before illness onset. Initial Sepsis Screen: Does the patient meet any 2 criteria? No. Patient's initial sepsis screen is negative. Does the patient have a suspected source of infection? No. Patient's initial sepsis screen is negative. Risk Assessment: Do you want to hurt yourself or someone else? Patient reports no desire to harm self or others. Onset of symptoms was June 23, 2024. 17:12 Method Of Arrival: Ambulatory aa5 17:12 Acuity: ROYA 3 aa5 Historical: - Allergies: 17:13 Pertussis Vaccines; aa5 - PMHx: 17:13 Anxiety; autoimmune hepatitis; depressive disorder; hashimotos disease; Hypothyroidism; aa5 Gastric ulcer (Unknown); - PSHx: 17:13 tubal-2011; aa5 - Immunization history:: Adult Immunizations unknown. - Infectious Disease History:: Denies. - Social history:: Smoking status: Patient denies any tobacco usage or history of. Screenin:11 [facility] ED Fall Risk Assessment (Adult) History of falling in the last 3 months, rs5 including since admission No falls in past 3 months (0 pts) Confusion or Disorientation No (0 pts) Intoxicated or Sedated No (0 pts) Impaired Gait No (0 pts) Mobility Assist Device Used No (0 pt) Altered Elimination No (0 pt) Score/Fall Risk Level 0 - 2 = Low Risk Oriented to surroundings, Maintained a safe environment. Abuse screen: Denies threats or abuse. Nutritional screening: No deficits noted. Tuberculosis screening: No symptoms or risk factors identified. Assessment: 17:11 Reassessment: Patient and/or family updated on plan of care and expected duration. Pain rs5 level reassessed. Patient is alert, oriented x 3, equal unlabored respirations, skin warm/dry/pink. 17:20 General: Appears in no apparent distress. comfortable, Behavior is calm, cooperative, jb4 appropriate for age. Pain: Complains of pain in epigastric area Pain radiates to anterior aspect of right lateral abdomen Pain currently is 8 out of 10 on a pain scale. Neuro: Level of Consciousness is awake, alert, obeys commands, Oriented to person, place, time, situation. Cardiovascular: Patient's skin is warm and dry. Respiratory: Airway is patent Respiratory effort is even, unlabored, Respiratory pattern is regular, symmetrical. GI: Abdomen is non-distended, obese. : No signs and/or symptoms were reported regarding the genitourinary system. EENT: No signs and/or symptoms were reported regarding the EENT system. Derm: Skin is intact, Skin is pink, warm \T\ dry. Musculoskeletal: Circulation, motion, and sensation intact. Range of motion: intact in all extremities. 18:22 Reassessment: Patient and/or family updated on plan of care and expected duration. Pain rs5 level reassessed. Patient is alert, oriented x 3, equal unlabored respirations, skin warm/dry/pink. 19:01 Reassessment: Patient appears in no apparent distress at this time. Patient and/or jb4 family updated on plan of care and expected duration. Pain level reassessed. Patient is alert, oriented x 3, equal unlabored respirations, skin warm/dry/pink. 19:05 Reassessment: Patient and/or family updated on plan of care and expected duration. Pain br2 level reassessed. Patient is alert, oriented x 3, equal unlabored respirations, skin warm/dry/pink. Patient states feeling better. Patient states symptoms have improved. GI: Abdomen is obese, Bowel sounds present X 4 quads. Abdomen is tender to palpation in epigastric area. 20:30 Reassessment: No changes from previously documented assessment. Patient and/or family br2 updated on plan of care and expected duration. Pain level reassessed. Patient is alert, oriented x 3, equal unlabored respirations, skin warm/dry/pink. 21:30 Reassessment: No changes from previously documented assessment. Patient and/or family br2 updated on plan of care and expected duration. Pain level reassessed. Patient is alert, oriented x 3, equal unlabored respirations, skin warm/dry/pink. 23:03 Reassessment: Patient and/or family updated on plan of care and expected duration. Pain br2 level reassessed. Patient is alert, oriented x 3, equal unlabored respirations, skin warm/dry/pink. Vital Signs: 17:12 BP 138 / 87; Pulse 85; Resp 16 S; Temp 98.8(O); Pulse Ox 99% on R/A; Weight 113.4 kg aa5 (R); Height 5 ft. 7 in. (R); 19:01 BP 136 / 82; Pulse 72; Resp 16; Pulse Ox 99% on R/A; jb4 22:42 BP 127 / 83; Pulse 72; Resp 16; Pulse Ox 99% on R/A; jb4 23:04 BP 127 / 83; Pulse 69; Resp 18; Pulse Ox 96% on R/A; br2 17:12 Body Mass Index 39.16 (113.40 kg, 170.18 cm) aa5 ED Course: 16:52 Patient arrived in ED. mg5 16:54 Ryan Linn PA is PHCP. cp 16:54 Martin Nickerson MD is Attending Physician. cp 17:11 Patient has correct armband on for positive identification. Placed in gown. Bed in low rs5 position. Call light in reach. Side rails up X2. 17:11 No provider procedures requiring assistance completed. rs5 17:12 Arm band placed on. aa5 17:13 Triage completed. aa5 17:37 Walker Mahan, RN is Primary Nurse. rs5 18:13 CMP Sent. jb4 18:13 CBC with Diff Sent. jb4 18:13 Lipase Sent. jb4 18:13 Test, Urine Sent. jb4 18:13 Urinalysis w/ reflexes Sent. jb4 19:22 XRAY Chest (1 view) In Process Unspecified. EDMS 19:32 Primary Nurse role handed off by Walker Mahan, RN br2 19:32 Annabelle Curry RN is Primary Nurse. br2 19:38 CT Abd/Pelvis - IV Contrast Only In Process Unspecified. EDMS 20:00 PHCP role handed off by Ryan Linn PA kb 20:00 Sparkle Friedman FNP-C is PHCP. kb 20:21 US Abdomen Limited In Process Unspecified. EDMS 20:46 Jabier Holt MD is Hospitalizing Provider. kb 06/24 00:06 Provided Education on: plan of care. br2 00:06 Patient admitted, IV remains in place. br2 Administered Medications: 06/23 18:13 Drug: Famotidine IVP 20 mg IVP once; dilute with 10 mL 0.9% NaCl; give over 2 minutes jb4 Route: IVP; Site: right antecubital; 18:40 Follow up: Response: No adverse reaction rs5 18:13 Drug: Ondansetron IVP 4 mg IVP once; over 2 minutes Route: IVP; Site: right antecubital;jb4 18:30 Follow up: Response: No adverse reaction rs5 18:13 Drug: NS 0.9% IV 1000 ml IV at 1 bolus Per protocol; to be given as a bolus over 60 jb4 minutes Route: IV; Rate: 1 bolus; Site: right antecubital; 19:21 Follow up: Response: No adverse reaction; IV Status: Completed infusion; IV Intake: rs5 1000ml 18:35 Drug: morphine IVP or IV 4 mg IVP once over 4 mins Route: IVP; Infused Over: 4 mins; rs5 Site: right antecubital; 18:50 Follow up: Response: No adverse reaction; Pain is decreased rs5 21:50 Drug: Piperacillin-Tazobactam IVPB 3.375 grams IVPB once over 60 mins; (mix in NS 100 br2 mL) Route: IVPB; Infused Over: 60 mins; Site: right antecubital; 22:50 Follow up: Response: No adverse reaction; IV Status: Completed infusion; IV Intake: br2 100ml 23:45 Drug: Ketorolac IVP 15 mg IVP once Route: IVP; Site: right antecubital; br2 Medication: 17:38 VIS not applicable for this client. rs5 Intake: 19:21 IV: 1000ml; Total: 1000ml. rs5 22:50 IV: 100ml; Total: 1100ml. br2 Outcome: 20:47 Decision to Hospitalize by Provider. gene 06/24 00:06 Admitted to Med/surg accompanied by nurse, via stretcher, br2 Condition: good Instructed on the need for admit, Demonstrated understanding of instructions, 00:07 Patient left the ED. br2 Signatures: Dispatcher [employer] EDSparkle De La Cruz, VOCATIONAL GUIDANCE COUNSELOR-Rahel VOCATIONAL GUIDANCE COUNSELOR-Nayeli Huerta, RN RN aa5 Ryan Linn PA PA cp Bryson, James RN RN jb4 Walker Mahan RN RN rs5 Jana Holman mg5 Annabelle Curry RN RN br2
[2024-06-23] MEDS ORDERED: ONDANSETRON 4 MG/2 ML VIAL IV PRN (21:10)
[2024-06-23] MEDS ORDERED: ACETAMINOPHEN 325 MG TABLET PO PRN (21:10)
--- NOTE | 2024-06-23 21:24 | P.HP ---
Certification for Inpatient Patient admitted to: Inpatient With expected LOS: >2 Midnights Practitioner: I am a practitioner with admitting privileges, knowledge of patient current condition, hospital course, and medical plan of care. Services: Services provided to patient in accordance with Admission requirements found in Title 42 Section 412.3 of the Code of Federal Regulations Patient History Date of Service: 06/23/24 Reason for admission: Abdominal pain History of Present Illness: 34 yrs old Female with past medical history of anxiety, depression, Nish's disease, hypothyroidism, autoimmune hepatitis, gastric ulcer who presented to the ER with abdominal pain. Pain is in the epigastric region and right upper quadrant started this morning radiates to the back and to the right side of the flank. Sharp in quality 6 out of 10 in severity at the time of interview. Associated with some nausea but no vomiting. Denies any fever or chills. No hematemesis or melena. No sick contacts Patient was assessed in the ER and is admitted for further management of possible acute cholecystitis. CT was suggestive of cirrhosis. Ultrasound was positive for cholelithiasis with dilated CBD of 7 mm size Patient was admitted for further management Allergies Pertussis Vaccines Allergy (Unverified 07/12/15 01:27) Unknown - Past Medical/Surgical History Past Medical History: Reviewed- Non-Contributory -: Anxiety, depression, -: Autoimmune hepatitis -: Nish's thyroiditis Past Surgical History: Reviewed- Non-Contributory - Family History Family History: Reviewed- Non-Contributory - Social History Smoking Status: Never smoker Review of Systems 10-point ROS is otherwise unremarkable Physical Examination - Vital Signs Temperature: 98.2 F Blood Pressure: 132/76 Pulse: 78 Respirations: 18 Pulse Ox (%): 94 - Physical Exam General: Alert, In no apparent distress, Oriented x3, Obese HEENT: Atraumatic, Normocephalic Neck: Supple Respiratory: Clear to auscultation bilaterally, Normal air movement Cardiovascular: Regular rate/rhythm, Normal S1 S2 Capillary refill: <2 Seconds Gastrointestinal: Soft and benign, Tenderness Musculoskeletal: No clubbing, No swelling Integumentary: No rashes, No breakdown Neurological: Normal speech, Normal strength at 5/5 x4 extr, Cranial nerves 3-12 intact, Normal reflexes 2+, Normal affect Lymphatics: No axilla or inguinal lymphadenopathy - Studies Laboratory Data (last 24 hrs) 06/23/24 06/23/24 18:04 18:04 WBC 13.90 H Hgb 11.7 L Hct 36.7 Plt Count 192 Sodium 137 Potassium 3.8 BUN 9 Creatinine 0.72 Glucose 111 H Total Bilirubin 0.8 AST 20 ALT 28 Alkaline Phosphatase 83 Lipase 54 Assessment and Plan - Plan Cholelithiasis To rule out acute cholecystitis Dilated CBD Monitor closely on telemetry Pain control Started on IV antibiotic Surgical consult Will get an MRCP Liver enzymes trended Autoimmune hepatitis Monitor closely LFTs monitored Anxiety Continue home medications and titrate as needed GERD Continue PPI GI/DVT prophylaxis Advanced directive full code Discharge Plan: Home Plan to discharge in: 48 Hours - Advance Directives Does patient have a Living Will: No Does patient have a Durable POA for Healthcare: No - Code Status/Comfort Care Code Status: Full Code Time Spent Managing Pts Care (In Minutes): 48
[2024-06-23] MEDS ORDERED: NA CHLORIDE 0.9% 100 ML ONE (21:41)
[2024-06-23] MEDS ORDERED: PIPERACIL/TAZO 3.375 GM VIAL IV ONE (21:41)
[2024-06-23 22:04] LABS: PT Prothrombin Time 13.3 SECONDS (9.4-12.5); PTT, Activated Partial Thromb 35.5 SECONDS (24.3-36.9); Protime INR 1.19
[2024-06-23] MEDS ORDERED: KETOROLAC 30 MG/ML INJ ONE (23:27)
[2024-06-24] MEDS: D5 0.45 NS 1,000 ML IV SCH (01:54)
[2024-06-24] MEDS: PIPER TAZO 3.375 GM in NA CHLORIDE 0.9% 100 ML IV SCH (01:54)
[2024-06-24 02:54] VITALS: BMI 39.1
[2024-06-24 04:26] LABS: Absolute Basophils 0.1 K/uL (0-0.5); Absolute Eosinophils 0.1 K/uL (0-0.5); Absolute Lymphocytes (CBC) 3.3 K/uL (0.7-4.9); Absolute Monocytes 1.2 K/uL (0.1-1.3); Absolute Neutrophil 8.5 K/uL (1.8-8.0); Eosinophils % 0.7 % (0-4.4); Hematocrit 34.9 % (36.0-45.0); Hemoglobin 11.2 g/dL (12.0-15.0); Lymphocytes % 24.8 % (15.3-44.8); MCH 24.8 pg (27.0-35.0); MCHC 32.1 g/dL (32.0-36.0); MCV 77.3 fL (80-100); Neutrophils % 64.5 % (41.7-73.7); Nucleated Red Blood Cells % 0.1 % (0-0); Platelets 181 thou/uL (152-406); RBC Red Blood Cell Count 4.52 M/uL (3.86-4.86); Red Cell Distribution Width 16.1 % (12.1-15.2)
[2024-06-24 04:29] LABS: Specific Gravity > 1.030 (1.005-1.030); Sqamous Epithelial <5 /HPF (None Seen); Urine Bacteria None Seen /HPF (<20); Urine Bilirubin NEGATIVE (Negative); Urine Blood Negative (Negative); Urine Clarity Clear (Clear); Urine Color Light-Yellow (Yellow); Urine Culture Reflex Order NOT NEEDED; Urine Glucose NEGATIVE (Negative); Urine Ketones NEGATIVE (Negative); Urine Microscopic Reflex YN ORDER UMIC; Urine Mucus Slight /HPF (None Seen); Urine Nitrite NEGATIVE (Negative); Urine Protein TRACE (Negative); Urine RBC <5 /HPF (None Seen); Urine Urobilinogen Normal (Normal); Urine WBC <5 /HPF (<5)
[2024-06-24 04:42] LABS: Albumin 2.9 g/dL (3.4-5.0); Albumin/Globulin Ratio 0.7 (1.1-1.8); Anion Gap 6.1 mEq/L (5.0-15.0); Bilirubin Total 0.8 mg/dL (0.2-1.0); Potassium 4.1 mEq/L (3.5-5.1); Protein, Total 6.9 g/dL (6.4-8.2)
--- NOTE | 2024-06-24 07:49 | P.PN ---
Date of Service: 06/24/24 Subjective: continues with some RUQ discomfort, slowly improving pain comes intermittently in waves also been dealing with some nausea at home. Denies vomiting afebrile ROS: 10 point ROS as noted above, otherwise negative Physical Exam: GEN: Alert, NAD HEENT: Normal conjunctiva, sclera anicteric CV: Regular rate and rhythm, no edema Pulm: Nonlabored respirations on room air, clear bilaterally ABD: soft, RUQ tenderness, nondistended Neuro: Normal speech, normal affect Problem List: Cholelithiasis Liver Cirrhosis Hx autoimmune hepatitis Nish's Disease Hypothyroidim Anxiety/Depression Hx Gastric ulcers Cholelithiasis on admission, presents with RUQ abdominal pain radiating to right flank associated with nausea. Denies vomiting / fever / hematemesis / melena CT abdomen (06/23): Cholelithiasis. Moderate liver cirrhosis. Moderate splenomegaly abdominal u/s (06/23): cholelithiasis. mildly prominent CBD measuring 7mm. Dr. Holt, general surgeon consulted MRCP ordered to further eval NPO for now continue empiric zosyn (06/24-) pain control Liver Cirrhosis Hx autoimmune hepatitis confirm home meds, restart as appropriate LFTs normal Nish's Disease Hypothyroidim Anxiety/Depression Hx Gastric ulcers confirm home meds, restart as appropriate VTE: Lovenox Code: Full Dispo: Home Pending MRCP, surgical recs Time Spent Managing Pts Care (In Minutes):55
[2024-06-24] MEDS: ENOXAPARIN 40 MG/0.4 ML SQ SCH (07:50)
--- NOTE | 2024-06-24 13:54 | RAD REPORT ---
EXAMINATION: MR CHOLANGIOGRAM CLINICAL INDICATION: Female, 34 years old. Dilated CBD TECHNIQUE: Multiplanar, multisequence MR imaging of the abdomen without intravenous contrast, and wit h specific attention to the biliary system. Unless otherwise specified, incidental findings do not require dedicated imaging follow-up. 3D MIP reconstruction performed. COMPARISON: 10/04/2023. FINDINGS: GALLBLADDER: Multiple rounded/oblong stones. No wall thickening, or pericholecystic fluid. BILE DUCTS: No biliary ductal dilatation. CBD measures 5.0 cm in caliber. LIVER: Nodular contour without evidence of fatty infiltration. No focal lesion. PANCREAS: Normal signal. No mass, ductal dilation, or sandy-pancreatic fluid. SPLEEN: Bulky again measuring 16 cm in AP dimension. No focal lesion. ADRENALS: Normal; no mass. KIDNEYS: Normal size and contour. No hydronephrosis. LYMPH NODES: No lymphadenopathy. ADDITIONAL FINDINGS: None. IMPRESSION: Cholelithiasis. No intra or extrahepatic ductal dilation. Other stable findings including liver cirrhosis and splenomegaly.
[2024-06-24] MEDS: MORPHINE 2 MG/ML SYR IV PRN (14:14)
[2024-06-25 04:40] LABS: Absolute Eosinophils 0.1 K/uL (0-0.5); Absolute Lymphocytes (CBC) 2.6 K/uL (0.7-4.9); Absolute Monocytes 0.9 K/uL (0.1-1.3); Absolute Neutrophil 4.6 K/uL (1.8-8.0); Basophils % 0.4 % (0-1.3); Eosinophils % 0.9 % (0-4.4); Hematocrit 35.4 % (36.0-45.0); Hemoglobin 11.3 g/dL (12.0-15.0); Lymphocytes % 31.8 % (15.3-44.8); MCH 24.8 pg (27.0-35.0); MCHC 31.9 g/dL (32.0-36.0); MCV 77.7 fL (80-100); MPV 7.7 fL (7.6-11.3); Monocytes % 10.5 % (3.3-12.3); Neutrophils % 56.4 % (41.7-73.7); Nucleated Red Blood Cells % 0.1 % (0-0); Platelets 143 thou/uL (152-406); RBC Red Blood Cell Count 4.55 M/uL (3.86-4.86); Red Cell Distribution Width 16.5 % (12.1-15.2)
[2024-06-25 04:59] LABS: Albumin 2.7 g/dL (3.4-5.0); Albumin/Globulin Ratio 0.7 (1.1-1.8); Protein, Total 6.7 g/dL (6.4-8.2)
[2024-06-25] MEDS ORDERED: FENTANYL CITR 100 MCG/2 ML ONE (11:10)
[2024-06-25] MEDS ORDERED: KETOROLAC 30 MG/ML INJ ONE (11:11)
[2024-06-25] MEDS ORDERED: MIDAZOLAM HCL 2 MG/2 ML INJ ONE (11:11)
[2024-06-25] MEDS ORDERED: LIDOCAINE 1% MPF 5 ML VIAL ONE (11:11)
[2024-06-25] MEDS ORDERED: propofoL 200 MG/20 ML VIAL IV ONE (11:11)
[2024-06-25] MEDS ORDERED: ROCURONIUM 50 MG/5 ML VIAL IV ONE (11:11)
[2024-06-25] MEDS ORDERED: ONDANSETRON 4 MG/2 ML VIAL ONE (11:11)
[2024-06-25] MEDS: Ringers Lactate 1,000 ML IV ONE (12:28)
[2024-06-25] MEDS: LIDOCAINE HCL/EPINEPHRINE 20 ML MDV ONE (12:56)
--- NOTE | 2024-06-25 13:57 | P.OP ---
Preoperative diagnosis: Cholecystitis Postoperative diagnosis: Cholecystitis Primary procedure: Laparoscopic cholecystectomy with ICG Cholangiography Anesthesia: GETA + Local Estimated blood loss: <5cc Specimen: Gallbladder Findings: Short Cystic Duct, Distended GB, aberrant cystic artery, nodular cirrhosis Complications: None Implants: Shiraz Marcus Transferred to: Recovery Room Condition: Good
[2024-06-25] MEDS: HYDROMORPHONE HCL 1 MG/ML INJ ONE (14:25)
[2024-06-25 14:39] VITALS: O2SAT 5
[2024-06-25] MEDS: HYDROCODONE/APAP 5/325 MG TAB PO PRN (17:19)
--- NOTE | 2024-06-25 23:13 | P.PN ---
Date of Service: 06/25/24 Subjective: seen post-operatively Dr. Holt reported inflamed GB, short cystic duct, nodular liver cirrhosis she reports s ome discomfort, but hasn't moved around / gotten out of bed since surgery ROS: 10 point ROS as noted above, otherwise negative Physical Exam: GEN: Alert, NAD CV: Regular rate and rhythm, no edema Pulm: Nonlabored respirations on room air, clear bilaterally ABD: soft, RUQ tenderness, nondistended Neuro: Normal speech, normal affect Problem List: Cholelithiasis Liver Cirrhosis Hx autoimmune hepatitis Nish's Disease Hypothyroidim Anxiety/Depression Hx Gastric ulcers Cholelithiasis on admission, presents with RUQ abdominal pain radiating to right flank associated with nausea. Denies vomiting / fever / hematemesis / melena CT abdomen (06/23): Cholelithiasis. Moderate liver cirrhosis. Moderate splenomegaly abdominal u/s (06/23): cholelithiasis. mildly prominent CBD measuring 7mm. Dr. Holt, general surgeon consulted MRCP negative lap apolonia today Dr. Holt recommends monitoring at least overnight and repeat blood work / LFTS prior to dc home NPO for now continue empiric zosyn (06/24-) pain control Liver Cirrhosis Hx autoimmune hepatitis confirm home meds, restart as appropriate LFTs normal Nish's Disease Hypothyroidim Anxiety/Depression Hx Gastric ulcers confirm home meds, restart as appropriate VTE: Lovenox Code: Full Dispo: Home pending improvement and AM labs Time Spent Managing Pts Care (In Minutes):55
--- NOTE | 2024-06-26 02:13 | OP ---
Date of Procedure: 06/25/2024 Surgeon: Stacey Holt MD, Preoperative Diagnosis: Cholecystitis. Postoperative Diagnosis: Cholecystitis. Procedure: Laparoscopic cholecystectomy with indocyanine green cholangiography. Anesthesia: General endotracheal plus local, 1% lidocaine with epinephrine. Estimated Blood Loss: Less than 5 cc. Specimen: Gallbladder. Findings: 1.Short cystic duct was noted. 2.Distended gallbladder. 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 4.Nodular cirrhosis. Complications: None. Implants: Shiraz hemostatic powder. Disposition: The patient is transferred to recovery room in good condition. Procedure In Detail: After informed consent was obtained, patient was brought to the operating room, prepped and draped in the usual sterile fashion. After adequate anesthesia was achieved, anesthetiz ed an area in supraumbilical position down to subcutaneous tissue. A 5 mm 0-degree optical trocar wa s introduced in the abdomen without incident or complication. Insufflation was obtained to 15 mmHg a t this time. No injury to vital structures upon entering the abdomen. 3 additional trocars were jackie peyton, one in the epigastrium, one in the right upper quadrant, one in the right mid abdomen. All of t hese and a 5 mm trocar was placed under direct vision without incident or complication. The umbilica l trocar was upsized to a 12 mm under direct visualization without incident or complication. The pat ient was then positioned head up right-side up position. Ratcheted grasper was used to grasp the pat ient's gallbladder, placed towards the right shoulder. Dissection was continued down the gallbladder . It was found to be quite distended. I dissected down the Pietro pouch of the gallbladder. Indo cyanine green cholangiography was performed showing a very short cystic duct, which was initially william pected. I then encircled 2 structures above the cystic artery. There was a bifurcation of the cysti c artery, however, with an anterior posterior branch. These structures were individually ligated usi ng a double titanium clips, doubly on the proximal side and singly on the distal side of both cystic duct and cystic artery after the critical view of safety was obtained. I then ligated these structur es with Endo kaleigh. Indocyanine green cholangiography confirmed no leakage of bile at this reported procedure and the continuous flow of bile to the common duct was appreciated. At this point, I steven amanda the gallbladder with hepatic fossa without incident or complication, used electrocautery, placed in EndoCatch bag, removed through the umbilical trocar site, and sent off for pathologic examination. The area was copiously irrigated. There was no exposure of bowel throughout the procedure. The ar ea was then dried. I sprayed Shiraz Hemostatic powder into the subhepatic space. There was no bleeding. However, the patient had signif icant cirrhosis and therefore I sprayed the hemostatic powder prophylactically. At this point, milana arroyo was positioned back in neutral position. The remaining effluent was suctioned out. I then closed the 12 mm trocar site using a Alex-Sloan suture passer with 0 Vicryl in an interrupted fashion with good approximation of tissue. The abdomen was then desufflated under direct vision without inci dent or complication. Remaining trocars were removed. All skin incisions were then copiously irriga stacey and closed with a 4-0 Monocryl in a running fashion. Dermabond was placed over top. The patient tolerated the procedure without incident or complication and transferred to PACU in good condition. All counts were correct at the end of the ca se. TK/MODL Voice ID: [id number] Report ID: [id number]
[2024-06-26 04:52] LABS: Hemoglobin 11.5 g/dL (12.0-15.0); MCH 24.6 pg (27.0-35.0); MCHC 31.8 g/dL (32.0-36.0); MCV 77.2 fL (80-100); MPV 7.9 fL (7.6-11.3); Platelets 151 thou/uL (152-406); RBC Red Blood Cell Count 4.67 M/uL (3.86-4.86); Red Cell Distribution Width 16.5 % (12.1-15.2)
[2024-06-26 05:04] LABS: Albumin 2.6 g/dL (3.4-5.0); Albumin/Globulin Ratio 0.7 (1.1-1.8); Bilirubin Direct 0.4 mg/dL (0-0.2); Bilirubin Indirect, Calculated 0.7 mg/dL (0.2-0.8); Bilirubin Total 1.1 mg/dL (0.2-1.0); Globulin 3.9 g/dL (2.3-3.5); Magnesium 1.7 mg/dL (1.6-2.4); Protein, Total 6.5 g/dL (6.4-8.2)
[2024-06-26] MEDS: SERTRALINE HCL 100 MG TAB PO SCH (05:57)
[2024-06-26] MEDS: METOPROLOL XL 50 MG TAB PO SCH (08:35)
[2024-06-26] MEDS: LEVOTHYROXINE SOD 0.112 MG TAB PO SCH (08:35)
--- NOTE | 2024-06-26 09:56 | P.DS ---
Admission Date: 06/23/24 Discharge Date: 06/26/24 Disposition: ROUTINE DISCHARGE Discharge Condition: GOOD Reason for Admission: Abdominal pain Consultations: General Surgery - Dr. Holt Brief History of Present Illness: 34 yo F, PMH: anxiety, depression, Nish's disease, hypothyroidism, autoimmune hepatitis, gastric ulcer Patient presented to the ER with abdominal pain. Pain is in the epigastric region and right upper quadrant started this morning radiates to the back and to the right side of the flank. Sharp in quality 6 out of 10 in severity at the time of interview. Associated with some nausea but no vomiting. Denies any fever or chills. No hematemesis or melena. No sick contacts. Patient was assessed in the ER and is admitted for further management of possible acute cholecystitis. CT was suggestive of cirrhosis. Ultrasound was positive for cholelithiasis with dilated CBD of 7 mm size Patient was admitted for further management Hospital Course: Problem List: Cholelithiasis s/p lap abby (06/25) Liver Cirrhosis Hx autoimmune hepatitis Nish's Disease Hypothyroidim Anxiety/Depression Hx Gastric ulcers Physician discharge instructions: Patient presented with worsening RUQ abdominal pain associated with nausea secondary to acute cholelithiasis. CT abdomen noted cholelithiasis, moderate liver cirrhosis, splenomegaly. Abdominal ultrasound noted mildly prominent CBD measuring 7mm. MRCP showed multiple gallstones without evidence of biliary ductal dilation. Patient was evaluated by Dr. Holt and underwent lap abby with ICG Cholangiography on 06/25. She was found to have a short cystic duct with distended gallbladder, aberrant cystic artery, nodular cirrhosis during surgery. Patient was monitored overnight, feeling better, abdominal pain improving and tolerable on oral pain medication, and was deemed stable for discharge. Patient tolerated diet and passing gas on day of discharge. No further episodes of nausea/diarrhea. LFTs okay on day of discharge. Follow up with Dr. Holt in ~1 week in office. Medications: norco 5/325 as needed for pain augmentin twice daily x 5 days ok to resume home medications as previously prescribed. Follow up: PCP 3-[address] Holt in office in ~1 week Please call to schedule / confirm appointments No heavy lifting > 10 lbs for 4-6 weeks or otherwise instructed by Dr. Holt No showering for 2 days. Okay to shower with running water after 2 days. Do not submerge wound underwater. Patient hospitalized from 06/23-06/26. Okay to return to work once cleared by Dr. Holt at follow up appointment. Physical Exam: GEN: Alert, NAD CV: Regular rate and rhythm, no edema Pulm: Nonlabored respirations on room air, clear bilaterally ABD: soft, no tenderness, nondistended, dressing in place Neuro: Normal speech, normal affect Vital Signs/Physical Exam: Temp Pulse Resp BP Pulse Ox 98.2 F 98 H 14 117/70 96 06/26/24 08:00 06/26/24 08:00 06/26/24 08:00 06/26/24 08:00 06/26/24 08:00 Laboratory Data at Discharge: WBC 10.50 thou/uL (4.3-10.9) 06/26/24 04:07 Hgb 11.5 g/dL (12.0-15.0) L 06/26/24 04:07 Hct 36.0 % (36.0-45.0) 06/26/24 04:07 Plt Count 151 thou/uL (152-406) L 06/26/24 04:07 PT 13.3 SECONDS (9.4-12.5) H 06/23/24 21:46 INR 1.19 06/23/24 21:46 APTT 35.5 SECONDS (24.3-36.9) 06/23/24 21:46 Sodium 138 mEq/L (136-145) 06/26/24 04:07 Potassium 4.0 mEq/L (3.5-5.1) 06/26/24 04:07 BUN 8 mg/dL (7-18) 06/26/24 04:07 Creatinine 1.04 mg/dL (0.55-1.02) H 06/26/24 04:07 Glucose 123 mg/dL (74-106) H 06/26/24 04:07 Magnesium 1.7 mg/dL (1.6-2.4) 06/26/24 04:07 Total Bilirubin 1.1 mg/dL (0.2-1.0) H 06/26/24 04:07 AST 22 U/L (15-37) 06/26/24 04:07 ALT 20 U/L (13-56) 06/26/24 04:07 Alkaline Phosphatase 57 U/L (45-117) 06/26/24 04:07 Lipase 54 U/L (13-75) 06/23/24 18:04 Home Medications: Budesonide [Budesonide EC] 3 mg PO DAILY 06/24/24 Buspirone HCl [Buspar] 10 mg PO DAILY 06/24/24 Levothyroxine [Synthroid*] 0.112 mcg PO DAILY 06/24/24 Metoprolol Succinate [Toprol Xl*] 50 mg PO DAILY 06/24/24 Omeprazole 20 mg PO DAILY 06/24/24 Rifaximin [Xifaxan] 550 mg PO BID 06/24/24 Sertraline [Zoloft*] 100 mg PO [id number] 06/24/24 Sucralfate [Carafate] 1 gm PO TID 06/24/24 mycophenolate mofetiL [Mycophenolate Mofetil] 1,000 mg PO BID 06/24/24 ursodioL [Ursodiol] 500 mg PO BID 06/24/24 Amox/Clavulanate [Augmentin 875-125 Tab] 1 tab PO BID 5 Days #10 tab 06/26/24 Hydrocodone 5/APAP 325 [[place] 5/325] 1 tab PO Q8H PRN #15 tab 06/26/24 New Medications: Amox/Clavulanate [Augmentin 875-125 Tab] 1 tab PO BID 5 Days #10 tab Hydrocodone 5/APAP 325 [[place] 5/325] 1 tab PO Q8H PRN #15 tab PRN Reason: Pain Physician Discharge Instructions: : PROBLEM: Acute Cholelithiasis/ Lap Abby GOAL: Clear understanding of disease process INSTRUCTIONS: Diet: Regular Activity: No heavy lifting > 10 lbs for 4-6 weeks or otherwise instructed by Dr. Holt Physician discharge instructions: Patient presented with worsening RUQ abdominal pain associated with nausea secondary to acute cholelithiasis. CT abdomen noted cholelithiasis, moderate liver cirrhosis, splenomegaly. Abdominal ultrasound noted mildly prominent CBD measuring 7mm. MRCP showed multiple gallstones without evidence of biliary ductal dilation. Patient was evaluated by Dr. Holt and underwent lap abby with ICG Cholangiography on 06/25. She was found to have a short cystic duct with distended gallbladder, aberrant cystic artery, nodular cirrhosis during surgery. Patient was monitored overnight, feeling better, abdominal pain improving and tolerable on oral pain medication, and was deemed stable for discharge. Patient tolerated diet and passing gas on day of discharge. No further episodes of nausea/diarrhea. LFTs okay on day of discharge. Follow up with Dr. Holt in ~1 week in office. Medications: norco 5/325 as needed for pain augmentin twice daily x 5 days ok to resume home medications as previously prescribed. Follow up: PCP 3-[address] Holt in office in ~1 week Please call to schedule / confirm appointments No heavy lifting > 10 lbs for 4-6 weeks or otherwise instructed by Dr. Holt No showering for 2 days. Okay to shower with running water after 2 days. Do not submerge wound underwater. Patient hospitalized from 06/23-06/26. Okay to return to work once cleared by Dr. Holt at follow up appointment. Followup: Vivi Guerin NP [Primary Care Provider] - 1-2 Weeks Jabier Holt MD [ACTIVE - CAN ADMIT] - 1 Week Time spent managing pt's care (in minutes): 45
[2024-06-26] MEDS: PANTOPRAZOLE 40MG TABLET PO ONE (11:32)
[2024-06-26] MEDS: SUCRALFATE 1 GM TABLET PO SCH (11:32)
[2024-06-26] MEDS: ursodioL 300 MG CAP PO SCH (11:32)
[2024-06-26 16:36] VITALS: BP 107/81; TEMP 98.1
== END 2024-06-26 18:00 | disposition home or self-care (01) | DRG 419 ==
LOC: ER 16:48 → ERHOLD 21:10 → 2ND 23:03 → 4TH 06-24 13:15 → 2ND 06-24 13:15
PROVIDERS: ADMIT Family Medicine; ATTEND Hospitalist
PROC: BF52200 Other Imaging of Gallbladder using Fluorescing Agent, Indocyanine Green Dye, Intraoperative (ICD-10-PCS; 2024-06-25)
PROC: 0FT44ZZ Resection of Gallbladder, Percutaneous Endoscopic Approach (ICD-10-PCS; principal; 2024-06-25 14:45)
DX: K80.00 Calculus of gallbladder with acute cholecystitis without obstruction (principal); E03.9 Hypothyroidism, unspecified; K74.60 Unspecified cirrhosis of liver; E66.9 Obesity, unspecified; K75.4 Autoimmune hepatitis; F41.9 Anxiety disorder, unspecified; K21.9 Gastro-esophageal reflux disease without esophagitis; E06.3 Autoimmune thyroiditis; F32.A Depression, unspecified; Z88.7 Allergy status to serum and vaccine; Z98.51 Tubal ligation status; Z68.39 Body mass index [BMI] 39.0-39.9, adult
CPT/HCPCS: 36415; 71045; 74177; 74181; 76705; 80048; 80053; 80076; 81001; 81025; 83690; 83735; 85025; 85027; 85610; 85730; 88304; 96361; 96365; 96375; 99285; J1171; J1650; J2003; J2250; J2270; J2405; J2543; J2704; J3010; J7030; J7120; J7799; Q9967

== ENCOUNTER 2024-07-16 23:45 | Emergency (ER) | payer BC ==
[2024-07-17] MEDS ORDERED: KETOROLAC 30 MG/ML INJ ONE (02:09)
[2024-07-17] MEDS ORDERED: NA CHLORIDE 0.9% 1,000 ML ONE (02:09)
[2024-07-17] MEDS ORDERED: METOCLOPRAMIDE 10 MG/2mL INJ ONE (02:09)
[2024-07-17] MEDS ORDERED: DIPHENHYDRAMINE 50 MG/ML VIAL ONE (02:09)
--- NOTE | 2024-07-17 04:02 | ER ---
Nurse's Notes [facility] Name: Gricel Tillman Age: 34 yrs Sex: Female : 1990 Arrival Date: 07/16/2024 Time: 23:45 Bed 11 Private MD: Diagnosis: Migraine without aura, intractable Presentation: 07/17 00:17 Chief complaint: Patient states: I HAVE HISTORY OF MIGRAINES AND I FEEL THAT I AM ha1 HAVING AN EPISODE. HEADACHE AND NAUSEA. 00:17 Coronavirus screen: Client denies travel out of the [place] in the last 14 days. Ebola ha1 Screen: No symptoms or risks identified at this time. Initial Sepsis Screen: Does the patient meet any 2 criteria? No. Patient's initial sepsis screen is negative. Does the patient have a suspected source of infection? No. Patient's initial sepsis screen is negative. Risk Assessment: Do you want to hurt yourself or someone else? Patient reports no desire to harm self or others. Onset of symptoms was July 17, 2024. 00:17 Method Of Arrival: Ambulatory ha1 00:17 Acuity: ROYA 3 ha1 Triage Assessment: 00:17 Headache History: The patient has had previous headaches and this one is similar to ha1 previous episodes. General: Appears uncomfortable, Behavior is calm, cooperative. Pain: Complains of pain in HEADACHE Pain does not radiate. Pain currently is 10 out of 10 on a pain scale. Quality of pain is described as throbbing. Neuro: Level of Consciousness is awake, alert, obeys commands, Oriented to person, place, time, situation, Reports headache. Cardiovascular: Capillary refill < 3 seconds Patient's skin is warm and dry. Respiratory: Airway is patent Respiratory effort is even, unlabored, Respiratory pattern is regular, symmetrical. 00:17 Pain: Also complains of nausea. ha1 Historical: - Allergies: 00:17 Pertussis Vaccines; ha1 - PMHx: 00:17 Anxiety; autoimmune hepatitis; depressive disorder; gastric ulcer (Unknown); hashimotos ha1 disease; Hypothyroidism; - PSHx: 00:17 tubal-2012; ha1 - Immunization history:: Adult Immunizations up to date. - Infectious Disease History:: Denies. - Social history:: Smoking status: Patient denies any tobacco usage or history of. - Family history:: not pertinent. Screenin:38 [facility] ED Fall Risk Assessment (Adult) History of falling in the last 3 months, kl including since admission No falls in past 3 months (0 pts) Confusion or Disorientation No (0 pts) Intoxicated or Sedated No (0 pts) Impaired Gait No (0 pts) Mobility Assist Device Used No (0 pt) Altered Elimination No (0 pt) Score/Fall Risk Level 0 - 2 = Low Risk Oriented to surroundings, Maintained a safe environment. Abuse screen: Denies threats or abuse. Nutritional screening: No deficits noted. Tuberculosis screening: No symptoms or risk factors identified. Assessment: 02:37 General: Appears in no apparent distress. Behavior is calm, cooperative. Pain: kl Complains of pain in abdomen. Pain: Complains of pain in headache. Neuro: No deficits noted. Cardiovascular: No deficits noted. Respiratory: No deficits noted. GI: No deficits noted. 03:30 Reassessment: Patient and/or family updated on plan of care and expected duration. Pain ha1 level reassessed. Patient is alert, oriented x 3, equal unlabored respirations, skin warm/dry/pink. Patient denies pain at this time. Patient states feeling better. Patient states symptoms have improved. 04:27 Reassessment: Patient and/or family updated on plan of care and expected duration. Pain ha1 level reassessed. Patient is alert, oriented x 3, equal unlabored respirations, skin warm/dry/pink. Vital Signs: 00:17 BP 139 / 92; Pulse 76; Resp 19 S; Temp 97.6; Pulse Ox 99% ; Weight 113.4 kg; Height 5 ha1 ft. 7 in. ; 03:00 BP 127 / 85; Pulse 70; Resp 17 S; Pulse Ox 99% on R/A; ha1 04:00 BP 125 / 85; Pulse 75; Resp 18 S; Pulse Ox 99% on R/A; ha1 00:17 Body Mass Index 39.16 (113.40 kg, 170.18 cm) 1 [place] Coma Score: 23:36 Eye Response: spontaneous(4). Motor Response: obeys commands(6). Verbal Response: sp4 oriented(5). Total: 15. 23:37 Eye Response: spontaneous(4). Motor Response: obeys commands(6). Verbal Response: sp4 oriented(5). Total: 15. ED Course: 07/16 23:47 Patient arrived in ED. [id number] 07/17 00:03 Herber Kwong MD is Attending Physician. sp4 00:17 Arm band placed on right wrist. ha1 01:08 Triage completed. ha1 02:26 Inserted saline lock: 20 gauge in right antecubital area, using aseptic technique. rv1 Blood collected. Flushed with 10 mL NS. 02:26 Test, Serum Sent. rv1 02:38 Patient has correct armband on for positive identification. kl 04:29 No provider procedures requiring assistance completed. IV discontinued, intact, ha1 bleeding controlled, No redness/swelling at site. Pressure dressing applied. 04:31 Provided Education on: medication administration . ha1 Administered Medications: 02:10 Drug: NS 0.9% IV 1000 ml IV at 1000 ml once; to be given as a bolus over 60 minutes kl Route: IV; Rate: 1000 ml; Site: right antecubital; 04:30 Follow up: Response: No adverse reaction; IV Status: Completed infusion; IV Intake: ha1 1000ml 02:10 Drug: diphenhydrAMINE IVP 50 mg IVP once Route: IVP; Site: left antecubital; kl 03:00 Follow up: Response: No adverse reaction; Marked relief of symptoms ha1 02:20 Drug: Ketorolac IVP 30 mg IVP once Route: IVP; Site: right antecubital; kl 03:00 Follow up: Response: No adverse reaction; Marked relief of symptoms; Pain is decreased ha1 02:20 Drug: metoCLOPramide IVP 10 mg IVP once; over 1 to 2 minutes Route: IVP; Site: right kl antecubital; 03:00 Follow up: Response: No adverse reaction; Marked relief of symptoms; Pain is decreased ha1 Medication: 04:31 VIS not applicable for this client. ha1 Intake: 04:30 IV: 1000ml; Total: 1000ml. ha1 Outcome: 04:02 Discharge ordered by . sp4 04:29 Discharged to home ambulatory, with family, ha1 04:29 Condition: stable 04:29 Discharge instructions given to patient, family, Instructed on discharge instructions, follow up and referral plans. medication usage, Demonstrated understanding of instructions, follow-up care, medications, Prescriptions given X 2, 04:32 Patient left the ED. ha1 Signatures: Caryn Patrick RN RN Harriett Marquez jj6 Anabel Carty RN RN ha1 Coco Griffin rv1 Herber Kwong MD MD sp4
--- NOTE | 2024-07-17 04:02 | EDPHYS ---
Physician Documentation [facility] Name: Gricel Tillman Age: 34 yrs Sex: Female : 1990 Arrival Date: 07/16/2024 Time: 23:45 Bed 11 Private MD: ED Physician Herber Kwong HPI: 07/17 00:03 This 34 yrs old Female presents to ER via Unassigned with complaints of sp4 Headache, Nausea. 23:36 34-year-old female presents with acute headache and nausea.. sp4 Historical: - Allergies: 00:17 Pertussis Vaccines; ha1 - PMHx: 00:17 Anxiety; autoimmune hepatitis; depressive disorder; gastric ulcer (Unknown); hashimotos ha1 disease; Hypothyroidism; - PSHx: 00:17 tubal-2011; ha1 - Immunization history:: Adult Immunizations up to date. - Infectious Disease History:: Denies. - Social history:: Smoking status: Patient denies any tobacco usage or history of. - Family history:: not pertinent. ROS: 23:36 Constitutional: Negative for fever, chills, and weight loss, positive for headache and sp4 nausea 23:36 All other systems are negative, Exam: 23:36 Constitutional: This is a well developed, well nourished patient who is awake, alert, sp4 and in no acute distress. Head/Face: Normocephalic, atraumatic. Eyes: Pupils equal round and reactive to light, extra-ocular motions intact. Lids and lashes normal. Conjunctiva and sclera are not injected. Cornea within normal limits. Periorbital areas with no swelling, redness, or edema. ENT: Nares patent. No nasal discharge, no septal abnormalities noted. Tympanic membranes are normal and external auditory canals are clear. Oropharynx with no redness, swelling, or masses, exudates, or evidence of obstruction, uvula midline. Mucous membranes moist. Neck: Trachea midline, no thyromegaly or masses palpated, and no cervical lymphadenopathy. Supple, full range of motion without nuchal rigidity, or vertebral point tenderness. Chest/axilla: Normal chest wall appearance and motion. Nontender with no deformity. No lesions are appreciated. Cardiovascular: Regular rate and rhythm with a normal S1 and S2. No gallops, murmurs, or rubs. Normal PMI, no JVD. No pulse deficits. Respiratory: Lungs have equal breath sounds bilaterally, clear to auscultation and percussion. No rales, rhonchi or wheezes noted. No increased work of breathing, no retractions or nasal flaring. Abdomen/GI: Soft, with normal bowel sounds. No distension or tympany. No guarding or rebound. No evidence of tenderness throughout. Back: No spinal tenderness. No costovertebral tenderness. Skin: Warm, dry with normal turgor. Normal color with no rashes, no lesions, and no evidence of cellulitis. MS/ Extremity: Pulses equal, no cyanosis. Neurovascular intact. Full, normal range of motion. Neuro: Awake and alert, GCS 15, oriented to person, place, time, and situation. Cranial nerves II-XII grossly intact. Motor strength 5/5 in all extremities. Sensory grossly intact. Psych: Awake, alert, with orientation to person, place and time. Behavior, mood, and affect are within normal limits Vital Signs: 00:17 BP 139 / 92; Pulse 76; Resp 19 S; Temp 97.6; Pulse Ox 99% ; Weight 113.4 kg; Height 5 ha1 ft. 7 in. ; 03:00 BP 127 / 85; Pulse 70; Resp 17 S; Pulse Ox 99% on R/A; ha1 04:00 BP 125 / 85; Pulse 75; Resp 18 S; Pulse Ox 99% on R/A; ha1 00:17 Body Mass Index 39.16 (113.40 kg, 170.18 cm) ha1 [place] Coma Score: 23:36 Eye Response: spontaneous(4). Motor Response: obeys commands(6). Verbal Response: sp4 oriented(5). Total: 15. 23:37 Eye Response: spontaneous(4). Motor Response: obeys commands(6). Verbal Response: sp4 oriented(5). Total: 15. MDM: 00:11 Medical Screening Exam initiated sp4 23:37 Differential diagnosis: cluster headache, migraine, tension headache, vasomotor sp4 headache. Data reviewed: vital signs, nurses notes. ED course: Positive for migraine headache. Headache resolved. Stable for discharge home. 07/17 00:15 Order name: Test, Serum; Complete Time: 03:56 sp4 07/17 00:15 Order name: IV Saline Lock; Complete Time: : sp4 07/17 00:15 Order name: Labs collected and sent; Complete Time: sp4 Administered Medications: 02:10 Drug: NS 0.9% IV 1000 ml IV at 1000 ml once; to be given as a bolus over 60 minutes Route: IV; Rate: 1000 ml; Site: right antecubital; 04:30 Follow up: Response: No adverse reaction; IV Status: Completed infusion; IV Intake: ha1 1000ml 02:10 Drug: diphenhydrAMINE IVP 50 mg IVP once Route: IVP; Site: left antecubital; kl 03:00 Follow up: Response: No adverse reaction; Marked relief of symptoms ha1 02:20 Drug: Ketorolac IVP 30 mg IVP once Route: IVP; Site: right antecubital; kl 03:00 Follow up: Response: No adverse reaction; Marked relief of symptoms; Pain is decreased ha1 02:20 Drug: metoCLOPramide IVP 10 mg IVP once; over 1 to 2 minutes Route: IVP; Site: right kl antecubital; 03:00 Follow up: Response: No adverse reaction; Marked relief of symptoms; Pain is decreased ha1 Disposition: 23:38 Chart complete. sp4 Disposition Summary: 07/17/24 04:02 Discharge Ordered Notes: Location: Home sp4 Problem: new sp4 Symptoms: have improved sp4 Condition: Stable sp4 Diagnosis - Migraine without aura, intractable sp4 Followup: sp4 - With: Private Physician - When: 7 - 10 days - Reason: Recheck today's complaints Discharge Instructions: - Discharge Summary Sheet sp4 - Migraine Headache sp4 Forms: - Patient Portal Instructions sp4 Prescriptions: - Fioricet 50-300-40 mg Oral capsule - take 1 capsule ORAL route every 8 hours PRN headache; 30 capsule; Refills: 0, sp4 Product Selection Permitted - Tramadol 50 mg Oral Tablet - take 1 tablet ORAL route every 8 hours as needed; 12 tablet; Refills: 0, sp4 Product Selection Permitted Signatures: Dispatcher [employer] Caryn Conley RN RN kl Ayala, Heidy, RN RN ha1 Potepalov, Sergey, MD MD sp4
[2024-07-17 04:46] VITALS: TEMP 97.6; O2SAT 99
[2024-07-17 04:57] VITALS: BP 125/85
== END 2024-07-17 04:32 | disposition home or self-care (01) ==
LOC: ER 23:45
DX: G43.019 Migraine without aura, intractable, without status migrainosus (principal); R11.0 Nausea; F41.9 Anxiety disorder, unspecified; E03.9 Hypothyroidism, unspecified; F32.A Depression, unspecified; E06.3 Autoimmune thyroiditis; K75.4 Autoimmune hepatitis
CPT/HCPCS: 36415; 84703; 99284; J2765; J1200; J7030

== ENCOUNTER 2024-09-23 21:27 | Emergency (ER) | payer BC ==
[2024-09-23] MEDS ORDERED: NA CHLORIDE 0.9% 1,000 ML ONE (21:55)
[2024-09-23] MEDS ORDERED: ONDANSETRON 4 MG/2 ML VIAL ONE (21:55)
[2024-09-23] MEDS ORDERED: FAMOTIDINE 20 MG/2 ML VIAL IV ONE (21:55)
[2024-09-23 22:56] LABS: Absolute Basophils 0.1 K/uL (0-0.5); Absolute Lymphocytes (CBC) 2.7 K/uL (0.7-4.9); Absolute Monocytes 1.4 K/uL (0.1-1.3); Basophils % 0.4 % (0-1.3); Eosinophils % 0.3 % (0-4.4); Hematocrit 37.8 % (36.0-45.0); Hemoglobin 11.8 g/dL (12.0-15.0); Lymphocytes % 17.8 % (15.3-44.8); MCH 23.2 pg (27.0-35.0); MCHC 31.1 g/dL (32.0-36.0); MCV 74.6 fL (80-100); MPV 8.9 fL (7.6-11.3); Monocytes % 9.3 % (3.3-12.3); Neutrophils % 72.2 % (41.7-73.7); Nucleated Red Blood Cells % 0.1 % (0-0); Platelets 197 thou/uL (152-406); RBC Red Blood Cell Count 5.07 M/uL (3.86-4.86); Red Cell Distribution Width 17.2 % (12.1-15.2)
[2024-09-23 23:07] LABS: Albumin 3.2 g/dL (3.4-5.0); Albumin/Globulin Ratio 0.7 (1.1-1.8); Anion Gap 8.5 mEq/L (5.0-15.0); Bilirubin Total 0.6 mg/dL (0.2-1.0); Globulin 4.8 g/dL (2.3-3.5); Potassium 3.5 mEq/L (3.5-5.1)
[2024-09-24 00:53] LABS: Sqamous Epithelial <5 /HPF (None Seen); Urine Bacteria None Seen /HPF (<20); Urine Bilirubin NEGATIVE (Negative); Urine Blood Negative (Negative); Urine Clarity Extremely Turbid (Clear); Urine Color Yellow (Yellow); Urine Culture Reflex Order NOT NEEDED; Urine Glucose NEGATIVE (Negative); Urine Ketones NEGATIVE (Negative); Urine Microscopic Reflex YN ORDER UMIC; Urine Mucus 1+ /HPF (None Seen); Urine Nitrite NEGATIVE (Negative); Urine Protein TRACE (Negative); Urine RBC None Seen /HPF (None Seen); Urine Urobilinogen Normal (Normal); Urine WBC <5 /HPF (<5); Urine pH 6.5 (5.0-7.0)
[2024-09-24] MEDS ORDERED: MAGNES/ALUMIN/SIMET 30ML UCUP ONE (03:17)
--- NOTE | 2024-09-24 04:00 | RAD REPORT ---
EXAM: CT Abdomen and Pelvis With Intravenous Contrast CLINICAL HISTORY: The patient is 34 years old and is Female; ABD PAIN TECHNIQUE: Axial computed tomography images of the abdomen and pelvis with intravenous contrast. Sagittal and coronal reformatted images were created and reviewed. This CT exam was performed using one or more of the following dose reduction techniques: automated exposure control, adjustmen t of the mA and/or kV according to patient size, and/or use of iterative reconstruction technique. COMPARISON: No relevant prior studies available. FINDINGS: Lung bases: Unremarkable. No mass. No consolidation. ABDOMEN: Liver: Cirrhosis. Gallbladder and bile ducts: Gallbladder is surgically absent. No ductal dilation. Pancreas: Unremarkable. No mass. No ductal dilation. Spleen: Splenomegaly. Adrenals: Unremarkable. No mass. Kidneys and ureters: Unremarkable. No solid mass. No hydronephrosis. Stomach and bowel: Stool throughout the colon. No obstruction. No mucosal thickening. PELVIS: Appendix: The appendix is normal. Bladder: Unremarkable. Reproductive: Unremarkable as visualized. ABDOMEN and PELVIS: Intraperitoneal space: Small amount of free fluid in the pelvis. No free air. Bones/joints: No acute fracture. No dislocation. Soft tissues: Unremarkable. Vasculature: Unremarkable. No abdominal aortic aneurysm. Lymph nodes: Unremarkable. No enlarged lymph nodes. IMPRESSION: 1. Cirrhosis. 2. Splenomegaly. 3. Small amount of free fluid in the pelvis. 4. The appendix is normal. 5. Stool throughout the colon. Electronically signed by: Osman Fuentes MD 09/24/2024 03:46 AM [facility] 8 Due to temporary technical issues with the PACS/[employer] reporting system, reports are being khoa d by the in-house radiologist without review as a courtesy to ensure prompt reporting the interpreting radiologist is fully responsible for the content of the report. Transcribed Date/Time: 09/24/2024 4:00 AM
--- NOTE | 2024-09-24 06:24 | EDPHYS ---
Physician Documentation [facility] Name: Gricel Tillman Age: 34 yrs Sex: Female : 1990 Arrival Date: 09/23/2024 Time: 21:27 Bed 6 Private MD: ED Physician Herber Kwong HPI: 09/23 21:45 This 34 yrs old Female presents to ER via Ambulatory with complaints of Abdominal Pain, kb Nausea. 21:45 Patient is a 34-year-old female who presents for upper abdominal pain and nausea that kb started 3 days ago. States it was intermittent for the first 2 days but today has been constant. Reports history of splenomegaly and autoimmune hepatitis so she is concerned about that.. [employer]ER: 22:52 LMP N/A - , Not aa10 Historical: - Allergies: 21:34 Pertussis Vaccines; hb - Home Meds: 21:36 budesonide oral [Active]; levothyroxine oral [Active]; Buspirone Oral [Active]; hb Metoprolol Tartrate Oral [Active]; sertraline oral [Active]; Sucralfate Oral [Active]; Omeprazole Oral [Active]; Xifaxan oral [Active]; Ursodiol Oral [Active]; - PMHx: 21:34 Anxiety; autoimmune hepatitis; depressive disorder; gastric ulcer (Unknown); hashimotos hb disease; Hypothyroidism; - PSHx: 21:34 tubal-2012; hb - Immunization history:: Adult Immunizations up to date. - Infectious Disease History:: Denies. - Social history:: Smoking status: Patient/guardian denies using tobacco. ROS: 21:45 Constitutional: As per HPI kb Exam: 21:45 Constitutional: This is a well developed, well nourished patient who is awake, alert, kb and in no acute distress. Head/Face: Normocephalic, atraumatic. ENT: Moist Mucous membranes Cardiovascular: Regular rate Respiratory: Respirations even and unlabored. No increased work of breathing. Talking in full sentences Abdomen/GI: Soft, non-tender. No distention Skin: Warm, dry with normal turgor. Normal color. MS/ Extremity: Pulses equal, no cyanosis. Neurovascular intact. Full, normal range of motion. Neuro: Awake and alert, GCS 15, oriented to person, place, time, and situation. Vital Signs: 21:32 BP 129 / 86; Pulse 91; Resp 16; Temp 98.1; Pulse Ox 100% on R/A; Weight 113.4 kg; hb Height 5 ft. 7 in. ; Pain 7/10; 22:50 BP 142 / 82; Pulse 84; Resp 20 S; Temp 98.6; Pulse Ox 98% on R/A; aa10 23:19 BP 116 / 78; Pulse 82; Resp 20; Temp 99; Pulse Ox 98% on R/A; aa10 09/24 01:30 BP 111 / 95; Pulse 80; Resp 20 S; Temp 98; Pulse Ox 98% on R/A; MAP 102 mmHg; aa10 08:01 BP 123 / 91; Pulse 76; Resp 18; Pulse Ox 100% on R/A; ld1 09/23 21:32 Body Mass Index 39.16 (113.40 kg, 170.18 cm) hb 09/23 21:32 Pain Scale: Adult hb MDM: 09/23 21:29 Medical Screening Exam initiated kb 21:45 Data reviewed: vital signs, nurses notes. kb 09/24 00:19 Transition of care: After a detail discussion of the patient's case, care is kb transferred to Herber Kwong MD. 06:18 ED course: EXAM: CTAbdomen and Pelvis With Intravenous Contrast CLINICAL HISTORY: The sp4 patient is 34 years old and is Female; ABD PAIN TECHNIQUE: Axial computed tomography images of the abdomen and pelvis with intravenous contrast. Sagittal and coronal reformatted images were created and reviewed. This CT exam was performed using one or more of the following dose reduction techniques: automated exposure control, adjustment of the mA and/or kV according to patient size, and/or use of iterative reconstruction technique. COMPARISON: No relevant prior studies available. FINDINGS: Lung bases: Unremarkable. No mass. No consolidation. ABDOMEN: Liver: Cirrhosis. Gallbladder and bile ducts: Gallbladder is surgically absent. No ductal dilation. Pancreas: Unremarkable. No mass. No ductal dilation. Spleen: Splenomegaly. Adrenals: Unremarkable. No mass. Kidneys and ureters: Unremarkable. No solid mass. No hydronephrosis. Stomach and bowel: Stool throughout the colon. No obstruction. No mucosal thickening. PELVIS: Appendix: The appendix is normal. Bladder: Unremarkable. Reproductive: Unremarkable as visualized. ABDOMEN and PELVIS: Intraperitoneal space: Small amount of free fluid in the pelvis. No free air. Bones/joints: No acute fracture. No dislocation. Soft tissues: Unremarkable. Vasculature: Unremarkable. No abdominal aortic aneurysm. Lymph nodes: Unremarkable. No enlarged lymph nodes. IMPRESSION: 1. Cirrhosis. 2. Splenomegaly. 3. Small amount of free fluid in the pelvis. 4. The appendix is normal. 5. Stool throughout the colon. Electronically signed by: Osman Fuentes MD 09/24/2024 03:46. 09/23 21:39 Order name: CBC with Diff; Complete Time: 23:01 kb 09/23 21:39 Order name: CMP; Complete Time: 23:12 kb 09/23 21:39 Order name: Lipase; Complete Time: 23:12 kb 09/23 21:39 Order name: Test, Urine; Complete Time: 01:06 kb 09/23 21:39 Order name: Urinalysis w/ reflexes; Complete Time: 01:06 kb 09/23 21:39 Order name: CT Abd/Pelvis - IV Contrast Only kb 09/23 21:39 Order name: IV Saline Lock; Complete Time: 22:09 kb 09/23 21:39 Order name: Labs collected and sent; Complete Time: 22:10 kb Administered Medications: 09/23 22:08 Drug: Famotidine IVP 20 mg IVP once; dilute with 10 mL 0.9% NaCl; give over 2 minutes aa10 Route: IVP; Site: right antecubital; 09/24 03:09 Follow up: Response: No adverse reaction; Marked relief of symptoms aa10 03:10 Follow up: Response: No adverse reaction; Marked relief of symptoms aa10 09/23 22:09 Drug: Ondansetron IVP 4 mg IVP once; over 2 minutes Route: IVP; Site: right antecubital;aa10 09/24 03:10 Follow up: Response: No adverse reaction; Marked relief of symptoms aa10 09/23 22:09 Drug: NS 0.9% IV 1000 ml IV at 1 bolus Per protocol; to be given as a bolus over 60 aa10 minutes Route: IV; Rate: 1 bolus; Site: right antecubital; 09/24 03:09 Follow up: IV Status: Completed infusion; IV Intake: 1000ml aa10 03:22 Drug: Alum-Mag Hydroxide-Simeth PO Suspension (200 mg-200 mg-20 mg/5 mL) 30 ml PO once aa10 Route: PO; Disposition: 06:22 Co-signature as Attending Physician, Herber Kwong MD I agree with the assessment sp4 and plan of care. I reviewed the patient's care provided by Advanced Practice Provider \T\ agree w/ the diagnosis \T\ care plan. I personally saw the pt \T\ performed a substantive portion of the visit, incldng all aspects of the (History/Exam/Medical Decision Making). Disposition Summary: 09/24/24 06:24 Discharge Ordered Notes: Location: Home sp4 Problem: new sp4 Symptoms: have improved sp4 Condition: Stable sp4 Diagnosis - Acute Gastritis sp4 Followup: sp4 - With: Private Physician - When: 7 - 10 days - Reason: Recheck today's complaints Discharge Instructions: - Discharge Summary Sheet sp4 - Gastritis, Adult, [id number] sp4 Forms: - Patient Portal Instructions sp4 Signatures: Dispatcher [employer] Sparkle Mccracken, BERTA-C BERTA-Kristin Casey, RN RN Herber Kwong MD MD sp4 Ashley Medeiros, RN RN aa10
--- NOTE | 2024-09-24 06:24 | ER ---
Nurse's Notes [facility] Name: Gricel Tillman Age: 34 yrs Sex: Female : 1990 Arrival Date: 09/23/2024 Time: 21:27 Bed 6 Private MD: Diagnosis: Acute Gastritis Presentation: 09/23 21:32 Chief complaint: Upper abdominal pain and nausea x 3 days. Coronavirus screen: At this hb time, the client does not indicate any symptoms associated with coronavirus-19. Ebola Screen: No symptoms or risks identified at this time. Initial Sepsis Screen: Does the patient meet any 2 criteria? No. Patient's initial sepsis screen is negative. Does the patient have a suspected source of infection? No. Patient's initial sepsis screen is negative. Risk Assessment: Do you want to hurt yourself or someone else? Patient reports no desire to harm self or others. Onset of symptoms was September 21, 2024. 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 - Infectious Disease History:: Denies. - Social history:: Smoking status: Patient/guardian denies using tobacco. Screenin:51 [facility] ED Fall Risk Assessment (Adult) History of falling in the last 3 months, aa10 including since admission No falls in past 3 months (0 pts) Confusion or Disorientation No (0 pts) Intoxicated or Sedated No (0 pts) Impaired Gait No (0 pts) Mobility Assist Device Used No (0 pt) Altered Elimination No (0 pt) Score/Fall Risk Level 0 - 2 = Low Risk. [facility] ED Fall Risk Assessment (Adult) History of falling in the last 3 months, including since admission Confusion or Disorientation Intoxicated or Sedated Impaired Gait Altered Elimination Score/Fall Risk Level. Abuse screen: Denies threats or abuse. Denies injuries from another. Nutritional screening: No deficits noted. Tuberculosis screening: No symptoms or risk factors identified. Assessment: 22:44 General: Appears in no apparent distress. comfortable, well groomed, well developed, aa10 Behavior is calm, cooperative, appropriate for age, quiet, Smells of Reports feeling ill for 12-24 hours. Pain: Complains of pain in abdomen Pain does not radiate. Pain currently is 7 out of 10 on a pain scale. Quality of pain is described as aching, Pain began gradually, Is continuous, Alleviated by nothing. Aggravated by increased activity, Noted to be guarding, Also complains of no other associated symptoms. Current management is with famotidine,ondasetron Goal of pain control is to sleep comfortably. Neuro: No deficits noted. Level of Consciousness is awake, alert, obeys commands, Oriented to person, place, time, situation, Appropriate for age Cna are equal bilaterally Moves all extremities. Gait is steady, Speech is normal. Cardiovascular: No deficits noted. Capillary refill < 3 seconds. Respiratory: No deficits noted. Airway is patent. GI: Abdomen is non-distended, Bowel sounds present X 4 quads. Abd is soft Abdomen is tender to palpation. 22:55 Reassessment: patient stated abdominal pain, which she rated 7/10,that comes and goes, aa10 no relieving or exacerbating factor identified, patient has history of liver disease with resulting splenomegaly ,pain is located at the upper abdominal area. 09/24 01:29 Reassessment: Patient appears in no apparent distress at this time. No changes from aa10 previously documented assessment. Patient and/or family updated on plan of care and expected duration. Pain level reassessed. Patient is alert, oriented x 3, equal unlabored respirations, skin warm/dry/pink. Patient states feeling better. Patient states symptoms have improved. 08:01 Reassessment: Patient appears in no apparent distress at this time. No changes from ld1 previously documented assessment. Patient and/or family updated on plan of care and expected duration. Pain level reassessed. Patient denies pain at this time. Vital Signs: 09/23 21:32 BP 129 / 86; Pulse 91; Resp 16; Temp 98.1; Pulse Ox 100% on R/A; Weight 113.4 kg; hb Height 5 ft. 7 in. ; Pain 7/10; 22:50 BP 142 / 82; Pulse 84; Resp 20 S; Temp 98.6; Pulse Ox 98% on R/A; aa10 23:19 BP 116 / 78; Pulse 82; Resp 20; Temp 99; Pulse Ox 98% on R/A; aa10 02 01:30 BP 111 / 95; Pulse 80; Resp 20 S; Temp 98; Pulse Ox 98% on R/A; MAP 102 mmHg; aa10 08:01 BP 123 / 91; Pulse 76; Resp 18; Pulse Ox 100% on R/A; ld1 09/23 21:32 Body Mass Index 39.16 (113.40 kg, 170.18 cm) hb 02 21:32 Pain Scale: Adult hb ED Course: 09/23 21:29 Patient arrived in ED. im 21:29 Sparkle Friedman FNP-C is PHCP. kb 21:29 Herber Kwong MD is Attending Physician. kb 21:34 Triage completed. hb 21:36 Arm band placed on. hb 22:11 CBC with Diff Sent. aa10 22:11 CMP Sent. aa10 22:11 Lipase Sent. aa10 22:18 Inserted saline lock: 20 gauge in right antecubital area, using aseptic technique. aa10 22:52 Patient has correct armband on for positive identification. Fall risk band placed. aa10 Placed in gown. Bed in low position. Call light in reach. Side rails up X2. Provided Education on: plan of care. 22:53 No provider procedures requiring assistance completed. aa10 23:01 Radiology exam delayed due to test not completed at this time. nj 23:59 Test, Urine Sent. aa10 23:59 Urinalysis w/ reflexes Sent. aa10 09/24 01:16 CT Abd/Pelvis - IV Contrast Only In Process Unspecified. EDMS 08:02 IV discontinued, intact, bleeding controlled, No redness/swelling at site. ld1 Administered Medications: 09/23 22:08 Drug: Famotidine IVP 20 mg IVP once; dilute with 10 mL 0.9% NaCl; give over 2 minutes aa10 Route: IVP; Site: right antecubital; 09/24 03:09 Follow up: Response: No adverse reaction; Marked relief of symptoms aa10 03:10 Follow up: Response: No adverse reaction; Marked relief of symptoms aa10 09/23 22:09 Drug: Ondansetron IVP 4 mg IVP once; over 2 minutes Route: IVP; Site: right antecubital;aa10 09/24 03:10 Follow up: Response: No adverse reaction; Marked relief of symptoms aa10 09/23 22:09 Drug: NS 0.9% IV 1000 ml IV at 1 bolus Per protocol; to be given as a bolus over 60 aa10 minutes Route: IV; Rate: 1 bolus; Site: right antecubital; 09/24 03:09 Follow up: IV Status: Completed infusion; IV Intake: 1000ml aa10 03:22 Drug: Alum-Mag Hydroxide-Simeth PO Suspension (200 mg-200 mg-20 mg/5 mL) 30 ml PO once aa10 Route: PO; Medication: 09/23 22:52 VIS not applicable for this client. aa10 Intake: 09/24 03:09 IV: 1000ml; Total: 1000ml. aa10 Outcome: 06:24 Discharge ordered by . hali 08:02 Discharged to home ambulatory, ld1 08:02 Condition: stable 08:02 Discharge instructions given to patient, Instructed on discharge instructions, follow up and referral plans. Demonstrated understanding of instructions, follow-up care, 08:02 Patient left the ED. ld1 Signatures: Dispatcher [employer]DS[employer] De La Cruz, RAKESH HAMPTON-Kristin Casey RN Klyer Saha Lauren, RN RN ld1 Herber Kwong MD MD sp4 Suzanne Turner Ayoku RN RN aa10 Corrections: (The following items were deleted from the chart) 09/23 21:36 21:32 BP 138 / 91; Pulse 91bpm; Resp 16bpm; Pulse Ox 100% RA; Temp 98.1F; 113.4 kg; hb Height 5 ft. 7 in.; BMI: 39.1; Pain 7/10, Adult; hb
[2024-09-24 09:59] VITALS: TEMP 98
[2024-09-24 10:01] VITALS: BP 123/91; O2SAT 100
== END 2024-09-24 08:02 | disposition home or self-care (01) ==
LOC: ER 21:27
DX: K29.00 Acute gastritis without bleeding (principal)
CPT/HCPCS: 85025; 36415; 83690; 80053; J2405; J7030; 74177; 81001; 81025; Q9967